=== PATIENT | female | born 1945 | race Caucasian/White ===

== ENCOUNTER 2023-04-25 14:44 | Emergency (ER) | payer MEDICARE, SELFPAY ==
[2023-04-25 15:02] VITALS: BP 142/69; PULSE 73; RESP 18; TEMP 36.1; O2SAT 99
--- NOTE | 2023-04-25 15:05 | ED.SKABFB ---
HPI - Skin/Abscess/Foreign Bdy General Chief complaint: Skin/Abscess/Foreign Body Stated complaint: rash Time Seen by Provider: 04/25/23 15:05 Source: patient Mode of arrival: ambulatory Limitations: no limitations History of Present Illness HPI narrative: 77-year-old female presents with complaint of poison ashleigh rash x1 week. Reports continues to spread. Now is on her chin and left cheek, states hers son told her that she needs to be seen to get a steroid. patient complaining of itching. Is not using any [id number] medications to treat poison ashleigh. All systems reviewed and negative except as noted above. Related Data Home Medications Medication Instructions Recorded Confirmed gabapentin 100 mg capsule 100 mg PO BID 04/25/23 04/25/23 hydrochlorothiazide 25 mg tablet 25 mg PO DAILY 04/25/23 04/25/23 Allergies Allergy/AdvReac Type Severity Reaction Status Date / Time No Known Allergies Allergy Verified 04/25/23 15:05 Review of Systems Review of Systems: CONSTITUTIONAL: Denies fever, chills, or sweats. EYES: Denies visual changes, redness, or discharge. ENT: Denies rhinorrhea, congestion, sore throat, or otalgia. CARDIOVASCULAR: Denies chest pain, palpitations, or edema. RESPIRATORY: Denies cough or dyspnea. GASTROINTESTINAL: Denies abdominal pain, nausea, vomiting, or diarrhea. GENITOURINARY: Denies dysuria or hematuria. SKIN: Reports itchy rash to bilateral arms, right leg, neck, chin and cheek of face. MUSCULOSKELETAL: Denies back pain, joint pain, or myalgia. NEUROLOGIC: Denies headache, numbness, or weakness. PSYCHIATRIC: Denies anxiety or depression. All other systems reviewed are negative, except as documented in HPI. PMFSH Comments At time of signature, agree with nursing past medical, surgical, social and family history. There is no relevant family history pertinent to the presenting complaint. Exam Narrative: GENERAL: This is a well-nourished, well-developed patient, in no apparent distress. HEAD: normocephalic, atraumatic. EYES: PERRL. Sclera clear/white. Vision is grossly intact. EARS: External ears normal NOSE: External nose normal NECK: Neck supple, non-tender without lymphadenopathy, masses or thyromegaly. CARDIOVASCULAR: Regular rate and rhythm without murmurs, gallops, or rubs. RESPIRATORY: Clear to auscultation. Breath sounds equal bilaterally. No wheezes, rales, or rhonchi. SKIN: warm, Dry, intact, good texture and turgor. erythematous vesicular rash to bilateral arms, R leg, neck, chin and L cheek. no signs of infection. NEURO: awake, alert, and oriented to person, place and time. There were no obvious focal neurologic abnormalities. EXTREMITIES: No joint tenderness, effusion, or edema noted. Course Course Level of Care: Express Care Visit Vital Signs Vital signs: Vital Signs Temperature 36.1 C L 04/25/23 15:02 Pulse Rate 73 04/25/23 15:02 Respiratory Rate 18 04/25/23 15:02 Blood Pressure 142/69 H 04/25/23 15:02 Pulse Oximetry 99 04/25/23 15:02 Oxygen Delivery Room Air 04/25/23 15:02 Temperature 36.1 C L 04/25/23 15:02 Pulse Rate 73 04/25/23 15:02 Respiratory Rate 18 04/25/23 15:02 Blood Pressure 142/69 H 04/25/23 15:02 Pulse Oximetry 99 04/25/23 15:02 Oxygen Delivery Room Air 04/25/23 15:02 reviewed MDM - Skin/Abscess/Foreign Bdy MDM Narrative Medical decision making narrative: Patient is aware of diagnosis, understands and agrees to treatment plan. Anticipatory guidance given. Patient agrees to follow-up as directed and is aware of reasons to seek care at the emergency department. Portions of this record may have been created with voice recognition software Discharge Plan Discharge Clinical Impression: Dermatitis due to plants, including poison ashleigh, sumac, and oak Patient Disposition: Home, Self-Care Condition: Stable Instructions: Antibiotic Form, Poison Ashleigh (ED) Additional Instructions
== END 2023-04-25 15:22 | disposition home or self-care (01) ==
PROVIDERS: Emergency Provider Nurse Practitioner Family
DX: L25.5 Unspecified contact dermatitis due to plants, except food (principal); I10 Essential (primary) hypertension
CPT/HCPCS: 99213; G0463

== ENCOUNTER 2025-02-18 10:13 | Emergency (ER) | payer MEDICARE, SELFPAY ==
--- NOTE | 2025-02-18 10:14 | ED.FEMALEGU ---
HPI - Female Genitourinary General Chief complaint: Urogenital-Female Stated complaint: uti Time Seen by Provider: 02/18/25 10:14 Source: patient Mode of arrival: ambulatory Limitations: no limitations History of Present Illness HPI Narrative: Hilary is a 79-year-old female patient presenting to the clinic today with complaints of possible urinary tract infection. She reports yesterday she started having comes of urinary retention, frequency, urgency, and low urine output. Did notice some blood in her urine. Has not taken any azo or cranberry pills. Denies any flank pain or abdominal pain. No fever, nausea, vomiting, or diarrhea. Related Data Home Medications ?Medication ?Instructions ?Recorded ?Confirmed ?Last Taken ?Type hydrochlorothiazide 25 mg tablet 25 mg PO DAILY 04/25/23 02/18/25 Unknown History amlodipine 2.5 mg tablet mg 02/18/25 Unknown History mirtazapine 15 mg tablet mg 02/18/25 Unknown History rosuvastatin 10 mg tablet mg 02/18/25 Unknown History Allergies Allergy/AdvReac Type Severity Reaction Status Date / Time acetaminophen (From AdvReac Mild Itching Verified 02/18/25 10:30 Tylenol-Codeine #3) codeine (From AdvReac Mild Itching Verified 02/18/25 10:30 Tylenol-Codeine #3) Review of Systems Review of Systems: Pertinent positives per HPI. Patient denies any fever, chills, rash, headache, visual changes, dizziness, cough, shortness of breath, chest pain, palpitations, nausea, vomiting, diarrhea, constipation, abdominal pain, or any urinary issues. PMFSH Comments At the time of my signature, I reviewed and agree with the nursing past medical, surgical, social, and family history. There is no relevant family history pertinent to the patient complaint. Exam Narrative: General: Well-developed, well nourished, in no apparent distress. Head: Normocephalic, atraumatic. Cardio: Regular rate and rhythm, s1 and s2 normal, no murmur appreciated. Resp: Clear to auscultation bilaterally, no rhonchi, rales, wheezing or rubs. Abdomen: Soft, pliable, bowel sounds present in all quadrants, suprapubic tender to palpation, no organomegly, no CVAT tenderness. Course Course Emergency Course: Portions of this record may have been created with voice recognition software. Level of Care: Express Care Visit Vital Signs Vital signs: Vital Signs Temperature 36.5 C 02/18/25 10:21 Pulse Rate 68 02/18/25 10:21 Respiratory Rate 16 02/18/25 10:21 Blood Pressure 142/59 H 02/18/25 10:21 Pulse Oximetry 100 02/18/25 10:21 Temperature 36.5 C 02/18/25 10:21 Pulse Rate 68 02/18/25 10:21 Respiratory Rate 16 02/18/25 10:21 Blood Pressure 142/59 H 02/18/25 10:21 Pulse Oximetry 100 02/18/25 10:21 Vital signs reviewed MDM - Female Genitourinary MDM Narrative Medical decision making narrative: At the time of visit patient is resting comfortably on the exam table. Patient appears to be nontoxic. Labs: Urinalysis positive for blood, protein, leukocytes, and bilirubin. We will send urine for culture. Plan: I suspect patient has acute urinary tract infection. Prescription for cephalexin was sent to the pharmacy. Supportive measures were discussed with the patient and they voiced understanding discharge instructions and agrees to treatment plan. Return precautions reviewed Differential Diagnosis Differential diagnosis: Likely urinary tract infection, cystitis and other (Pyelonephritis) Lab Data Labs: Lab Results 02/18/25 Range/Units 10:26 POC Urine Color Red POC Urine Clarity Cloudy POC Urine pH 6.0 POC Ur Specif [place] 1.025 POC Urine Protein 3+ (Negative) POC Ur Glucose (UA) Negative (Negative) POC Urine Ketones Trace (Negative) POC Urine Blood 3+ (Negative) POC Urine Nitrite Negative (Negative) POC Urine Bilirubin 1+ (Negative) POC Urine Urobilinogen 1.0 POC U Leukocyte Esteras 3+ (Negative) Discharge Plan Discharge Clinical Impression: Urinary tract infection Qualifiers: Urinary tract infection type: acute cystitis Hematuria presence: with hematuria Qualified Code(s): N30.01 - Acute cystitis with hematuria Patient Disposition: Home Condition: Stable Instructions: Antibiotic Form, Urinary Tract Infection in Older Adults (ED) Additional Instructions: Urinalysis positive for blood, protein, leukocytes, and bilirubin. We will send urine for culture. Take Keflex as prescribed Increase fluids and stay well hydrated Wipe front to back. May use wet wipes. Avoid tub baths If sexually active- pee before and after intercourse. Wear cotton panties Avoid tight clothing up against the genitals Follow up with your PCP in 1 week if symptoms persist. Patient Language: Vietnamese Prescriptions: New cephalexin 500 mg capsule 500 mg PO Q12H 7 Days Qty: 14 0RF No Action amlodipine 2.5 mg tablet mirtazapine 15 mg tablet rosuvastatin 10 mg tablet hydrochlorothiazide 25 mg tablet 25 mg PO DAILY Follow-up/Referrals: UNKNOWN,DOCTOR [Non-Staff] - Time of Disposition: 10:30 Quality NIHSS Nursing Documentation ED NIHSS nursing documentation: reviewed/agree
[2025-02-18 10:21] VITALS: BP 142/59; PULSE 68; RESP 16; TEMP 36.5; O2SAT 100
[2025-02-18 10:30] LABS: EDUAAPPEAR Cloudy; EDUABILI 1+ (Negative); EDUABLOOD 3+ (Negative); EDUACOLOR1 Red; EDUAGLUCOSE Negative (Negative); EDUAKETONE Trace (Negative); EDUALEUKO 3+ (Negative); EDUANITRATE Negative (Negative); EDUAPROTEIN 3+ (Negative); EDUASPGRAVITY 1.025
--- OUTSIDE RECORDS SUMMARY | 2025-02-18 11:25 | XMS_ITS | Referral Summary ---
Author Organization [facility] Address [address] [place] [address] Care Team Providers Care Strategic Planning Analyst Name Role Phone Kalie Eason Lena Primary Care Provider [phone] Source Comments This patient is being referred for medical care/services via this automatically generate document. This document will provide information important for the transfer of patient care & comply with [facility] Meaningful Use Transitions of Care requirements.[facility] Allergies Active Allergy Reactions Criticality Noted Date Comments Acetaminophen-Codeine Itching,Rash Low 11/07/2021 Medications hydrochlorothiazide (HYDRODIURIL) 25 MG PO tablet take 1 tablet (25 mg total) by mouth in the morning. Active Calcium Carbonate (CALCIUM 600 PO) take by mouth DAILY. Active gabapentin (NEURONTIN) 100 MG Oral capsuleIndications: Bilateral primary osteoarthritis of knee,Status post right knee replacement take 1 capsule (100 mg total) by mouth in the morning and 1 capsule (100 mg total) at noon and 1 capsule (100 mg total) before bedtime. 90 capsule 1 2 Active amlodipine (NORVASC) 2.5 MG Oral tablet TAKE 1 TABLET BY MOUTH ONCE A DAY FOR BLOOD PRESSURE 2 Active meloxicam (MOBIC) 7.5 MG Oral tablet TAKE ONE (1) TABLET(S) BY MOUTH DAILY. 2 Active zolpidem (AMBIEN) 5 MG Oral tablet TAKE ONE (1) TABLET BY MOUTH AT BEDTIME NEEDED FOR INSOMNIA. 2 Active gabapentin (NEURONTIN) 100 MG Oral capsuleIndications: Status post left knee replacement,Status post total knee replacement, right take 1 capsule (100 mg total) by mouth in the morning and 1 capsule (100 mg total) at noon and 1 capsule (100 mg total) before bedtime. 90 capsule 3 3 Active gabapentin (NEURONTIN) 100 MG Oral capsuleIndications: Status post total knee replacement, right take 1 capsule (100 mg total) by mouth in the morning and 1 capsule (100 mg total) before bedtime. 90 capsule 1 3 Active gabapentin (NEURONTIN) 100 MG Oral capsuleIndications: Status post left knee replacement take 1 capsule (100 mg total) by mouth in the morning and 1 capsule (100 mg total) at noon and 1 capsule (100 mg total) before bedtime. 90 capsule 3 4 Active gabapentin (NEURONTIN) 100 MG Oral capsuleIndications: Status post left knee replacement take 1 capsule (100 mg total) by mouth in the morning and 1 capsule (100 mg total) at noon and 1 capsule (100 mg total) before bedtime. 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 Hoarse 01/19/2013 01/19/2013 Social History Tobacco Use Types Packs/Day Years Used Date Smoking Tobacco: Never Smokeless Tobacco: Never Tobacco Cessation:Counseling Given: Not Answered Alcohol Use Standard Drinks/Week Comments Yes 0 (1 standard drink = 0.6 oz pure alcohol) seldom maybe a drink every 3 months Comments Unknown Sex and Gender Information Value Date Recorded Sex Assigned at Female 11/04/2021 6:28 PM SHANK PIECE TACKER Legal Sex Female 10:56 AM CDT Gender Identity Female 11/04/2021 6:28 PM SHANK PIECE TACKER Sexual Orientation Straight 11/04/2021 6: 28 PM SHANK PIECE TACKER Last Filed Vital Signs Vital Sign Reading Time Taken Comments Blood Pressure 190/74 01/19/2014 12:42 PM CDT Pulse 54 01/19/2014 12:42 PM CDT Temperature - - Respiratory Rate 18 11/26/2023 8:24 AM SHANK PIECE TACKER Oxygen Saturation - - Inhaled Oxygen Concentration - - Weight 72.1 kg (159 lb) 11/26/2023 8:24 AM SHANK PIECE TACKER Height 147.3 cm (4' 10 ) 11/26/2023 8:24 AM SHANK PIECE TACKER Body Mass Index 33.23 11/26/2023 8:24 AM SHANK PIECE TACKER Plan of Treatment Not on file Care Teams Strategic Planning Analyst Relationship Specialty Start Date End Date Kalie Eason [address] [place] [address] PCP - General Family Medicine 06/21/22
--- OUTSIDE RECORDS SUMMARY | 2025-02-18 11:25 | XMS_ITS | Encounter Summary ---
Author Organization [facility] Address [address] [place] [address] Care Team Providers Care Assisted Living Administrator Name Role Phone N/A, Pcp Primary Care Provider Kalie Jeong Primary Care Provider [phone] Encounter Details Date Type Department Care Team (Late st Contact Info) Description 12/03/2020 Orders Only [facility], Family Medicine [address], [id number] [place], [place] [id number] Malka Valencia MD [address] [facility] [address] [place], [place] [id number] Need for COVID-19 vaccine Social History Tobacco Use Types Packs/Day Years Used Date Smoking Tobacco: Never Alcohol Use Standard Drinks/Week Comments Yes 0 (1 standard drink = 0.6 oz pur e alcohol) Comments Unknown Sex and Gender Information Value Date Recorded Sex Assigned at Female 11/04/2021 6:28 PM RAMP MANAGER Legal Sex Female 10:56 AM CDT Gender Identity Female 11/04/2021 6:28 PM RAMP MANAGER Sexual Orientation Straight 11/04/2021 6: 28 PM RAMP MANAGER documented as of this encounter Plan of Treatment Not on file documented as of this encounter Visit Diagnoses Diagnosis Need for COVID-19 vaccine documented in this encounter Care Teams Assisted Living Administrator Relationship Specialty Start Date End Date N/A, Pcp PCP - General Internal Medicine 01/15/13 06/20/22 Kalie Eason [address] [place] [address] PCP - General Family Medicine 06/21/22 documented as of this encounter
--- OUTSIDE RECORDS SUMMARY | 2025-02-18 11:25 | XMS_ITS | Clinical Summary ---
Author Organization [facility] and [facility]iliates Address [address] [place] [address] Care Team Providers Care Bacon Skin Lifter Name Role Phone Kalie Eason Lena Primary Care Provider [phone] Source Comments This patient is being referred for medical care/services via this automatically generate document. 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 Hoarse 01/19/2013 01/19/2013 Family History Medical History Relation Name Comments Cancer Brother 1 Tommy Cancer Brother 2 Daniel Paige skin cancer Cancer Mother Amisha Paige skin cancer Hypertension Mother Amisha Paige high blood pr essure Cancer Sister 1 Elton Cancer Sister 2 elton Rhoda ovarian cancer Relation Name Status Comments Brother 1 Tommy Brother 2 Daniel Paige Mother Amisha Paige Sister 1 Elton Sister 2 elton Rhoda Social History Tobacco Use Types Packs/Day Years Used Date Smoking Tobacco: Never Smokeless Tobacco: Never Tobacco Cessation:Counseling Given: Not Answered Alcohol Use Standard Drinks/Week Comments Yes 0 (1 standard drink = 0.6 oz pure alcohol) seldom maybe a drink every 3 months Comments Unknown Sex and Gender Information Value Date Recorded Sex Assigned at Female 11/04/2021 6:28 PM SALES PROJECT MANAGER Legal Sex Female 10:56 AM CDT Gender Identity Female 11/04/2021 6:28 PM SALES PROJECT MANAGER Sexual Orientation Straight 11/04/2021 6: 28 PM SALES PROJECT MANAGER Last Filed Vital Signs Vital Sign Reading Time Taken Comments Blood Pressure 190/74 01/19/2014 12:42 PM CDT Pulse 54 01/19/2014 12:42 PM CDT Temperature - - Respiratory Rate 18 11/26/2023 8:24 AM SALES PROJECT MANAGER Oxygen Saturation - - Inhaled Oxygen Concentration - - Weight 72.1 kg (159 lb) 11/26/2023 8:24 AM SALES PROJECT MANAGER Height 147.3 cm (4' 10 ) 11/26/2023 8:24 AM SALES PROJECT MANAGER Body Mass Index 33.23 11/26/2023 8:24 AM SALES PROJECT MANAGER Plan of Treatment Health Maintenance Due Date Last Done Comments DXA For Osteoporosis Screening 1945 Varicella Vaccine (1 of 2 - 13+ 2-dose series) 1958 DTaP/Td/Tdap Vaccine (1 - Tdap) 1964 Respiratory Syncytial Virus (RSV) patients and patients 60+Years (1 - 1-dose 75+ series) 2020 Fall Risk Screening 10/28/2024 Zoster Vaccine Completed 12/26/2020, 10/03/2020 Pneumococcal Vaccine Completed 04/02/2023, 07/18/2017, 11/19/2012 Breast Cancer Screening (Mammogram) Discontinued 09/16/2023 COVID-19 Vaccine Completed 08/25/2024, , 07/31/2023, Additional history exists INFLUENZA VACCINE Completed 08/25/2024, , 07/31/2023, Additional history exists Meningococcal ACWY Aged Out No longer eligible based on patient's age to complete this topic Meningococcal B Aged Out No longer el igible based on patient's age to complete this topic Care Teams Bacon Skin Lifter Relationship Specialty Start Date End Date Kalie Eason [address] [place] [address] PCP - General Family Medicine 06/21/22
--- OUTSIDE RECORDS SUMMARY | 2025-02-18 11:25 | XMS_ITS | Encounter Summary ---
Author Organization [facility] Address [address] [facility] [place] [address] Care Team Providers Care Production Repairer Name Role Phone N/A, Pcp Primary Care Provider Kalie Jeong Primary Care Provider Encounter Details Date Type Department Care Team (Late st Contact Info) Description 12/29/2021 Orders Only [facility], Orthopaedics [address] [place] [address] Carola Sheehan, PRESS SERVICE READER [address] [place], [place] [phone] Status post total knee replacement, right (Primary Dx) Social History Tobacco Use Types Packs/Day Years Used Date Smoking Tobacco: Never Alcohol Use Standard Drinks/Week Comments Yes 0 (1 standard drink = 0.6 oz pure alcohol) seldom maybe a drink every 3 months Comments Unknown Sex and Gender Information Value Date Recorded Sex Assigned at Female 11/04/2021 6:28 PM BLACK OXIDE COATING EQUIPMENT TENDER Legal Sex Female 10:56 AM CDT Gender Identity Female 11/04/2021 6:28 PM BLACK OXIDE COATING EQUIPMENT TENDER Sexual Orientation Straight 11/04/2021 6: 28 PM BLACK OXIDE COATING EQUIPMENT TENDER documented as of this encounter Plan of Treatment Not on file documented as of this encounter Visit Diagnoses Diagnosis Status post total knee replacement, right- Primary documented in this encounter Care Teams Production Repairer Relationship Specialty Start Date End Date N/A, Pcp PCP - General Internal Medicine 01/15/13 06/20/22 Kalie Eason [address] [place] [address] PCP - General Family Medicine 06/21/22 documented as of this encounter
--- OUTSIDE RECORDS SUMMARY | 2025-02-18 11:25 | XMS_ITS | Encounter Summary ---
Author Organization [facility] and [facility] Address [address] [place] [address] Care Team Providers Care Loader Unloader Name Role Phone N/A, Pcp Primary Care Provider Kalie Jeong Primary Care Provider Encounter Details Date Type Department Care Team (Late st Contact Info) Description 02/07/[address] [facility], Orthopaedics [address] [place] [address] Carola Sheehan, CLINICAL LABORATORY SCIENCE PROFESSOR [address] [place], [place] [phone] Pre-op testing (Primary Dx) Social History Tobacco Use Types Packs/Day Years Used Date Smoking Tobacco: Never Smokeless Tobacco: Never Alcohol Use Standard Drinks/Week Comments Yes 0 (1 standard drink = 0.6 oz pure alcohol) seldom maybe a drink every 3 months Comments Unknown Sex and Gender Information Value Date Recorded Sex Assigned at Female 11/04/2021 6:28 PM SOLE POLISHER Legal Sex Female 10:56 AM CDT Gender Identity Female 11/04/2021 6:28 PM SOLE POLISHER Sexual Orientation Straight 11/04/2021 6: 28 PM SOLE POLISHER documented as of this encounter Plan of Treatment Not on file documented as of this encounter Procedures Procedure Name Priority Date/Time Associated Diagnosis Comments URINALYSIS, MICROSCOPIC EXAM Routine 02/07/2022 4:48 PM CDT Pre-op testing CHG URNLS DIP STICK/TABLET REAGENT AUTO MICROSCOPY Routine 02/07/2022 4:48 PM CDT Pre-op testing documented in this encounter Results * URINALYSIS, MICROSCOPIC EXAM (02/07/2022 4:48 PM CDT) RBC 3-5 0-5/hpf [facility] WBC None 0-5/hpf [facility] SQUAMOUS EPITHELIAL CELLS 1-5 <6/hpf [facility] Bacteria Rare None [facility] COMMENT [facility] Urine / Unknown 02/07/2022 4 :48 PM CDT 02/07/2022 5:46 PM CDT [facility] URINE ORDERABLES Final Result Performing Organization Address City/[facility] Co de Phone Number [facility] [address] [place] [address] * (ABNORMAL) URINALYSIS, COMPLETE W/REFLEX TO CULTURE (02/07/2022 4:48 PM CDT) COLOR Yellow Straw, Yellow [facility] CLARITY Clear Clear [facility] GLUCOSE URINE Negative Negative [facility] BILIRUBIN Negative Negative [facility] KETONES, URINE Negative Negative [facility] SPECIFIC GRAVITY 1.020 1.005 - 1.030 [facility] PH, URINE 7.0 5.0 - 8.0 [facility] PROTEIN, URINE Negative Negative [facility] UROBILINOGEN, URINE 0.2 0.2 - 1.0 E.U./dL [facility] NITRITE Negative Negative [facility] OCCULT BLOOD, URINE Trace-intact (A) Negative [facility] LEUKOCYTE ESTERASE Negative Negative [facility] Urine / Unknown 02/07/2022 4:48 PM CDT 02/07/2022 5:46 PM CDT [facility] PERFORMED LABS Fi nal Result [facility] [address] [place] [address] documented in this encounter Visit Diagnoses Diagnosis Pre-op testing- Primary Preoperative examination, unspecified documented in this encounter Care Teams Loader Unloader Relationship Specialty Start Date End Date N/A, Pcp PCP - General Internal Medicine 01/15/13 06/20/22 Kalie Eason [address] [place], [place] [phone] PCP - General Family Medicine 06/21/22 documented as of this encounter
--- OUTSIDE RECORDS SUMMARY | 2025-02-18 11:25 | XMS_ITS | Continuity of Care Document ---
Author Organization [facility] Address [address] [place] [address] Phone Care Team Providers Care Shotblast Operator Name Role Phone Bernadette Rodarte Unavailable Unavailab le Allergies, Adverse Reactions, Alerts Substance Reaction Status Criticality No Known Allergies Active No Inform ation Procedures Procedure Date OFFICE/OUTPATIENT VISIT, EST Biopsy, Tangential Single Lesion 2022 DESTRUCT PREMALG LESION DESTRUCT PREMALG LES, 2-14 OFFICE/OUTPATIENT VISIT, EST No Charge EXC TR-EXT B9+CAMRYN 0.6-1 CM OFFICE CONSULTATION TISSUE EXAM BY PATHOLOGIST Advance Directives Directive Yes / No Effective Date File Name No Information Encounters Encounter Description Practice Location Reason(s) For Visit Diagnoses Date Provider Providers Copied on Encounter Dermatology [facility], [address] [place] [address], [place], [place], [id number], [place] tel: [phone] [facility] Location Ot benign neoplasm skin/ left upper limb, inc shoulder 3 Delio Fleming. [address] , [place], [place], [id number] , [place]. tel: [phone] OFFICE/OUTPAT IENT VISIT, EST Dermatology [facility], [address] [place] [address], [place], [place], [id number], [place] tel: [phone] [facility] Location lesion(s) (chief complaint) Encounter for screening for cancer of skinInflamed seborrheic keratosisLentigoM elanocytic nevi of trunkActinic keratosisNeoplasm of uncertain behavior of skin 3 Dudley- Cruz Bernadette. [address] [facility], [place], [place], [id number] , [place]. tel: [phone] OFFICE/OUTPAT IENT VISIT, EST Dermatology [facility], [address] [place] [address], [place], [place], [id number], [place] tel:[phone] [facility] lesion(s) (chief complaint) Other dyschromiaBenign neoplasm of skin of trunk, except scrotumInflamed seborrheic keratosisBenign neoplasm of skin of upper limb, including shoulder 2 Dudley- Cruz Bernadette. [address] [facility], [place], [place], [id number] , [place]. tel: [phone] Dermatology [facility], [address] [place] [address], [place], [place], [id number], [place] tel: [address] [place] [address] No Information 0 Dudley- Cruz Bernadette. [address] [facility], [place], [place], [id number] , [place]. tel: [phone] OFFICE CONSULTATION [facility], [address] [place] [address], [id number], [place] tel:[phone] [place] [address] No Information 0 Dudley- Cruz Bernadette. [address] [facility], [place], [place], [id number] , [place]. tel: [phone] Referring Provider: Nichole Suggs, [address], [place], [address] . tel:[phone] Dermatology [facility], [address] [place] [address], [place], [place], [id number], [place] tel:[phone] [place] [address] No Information 0 Hari Lai. [address] [place], [place], [id number] , [place]. tel: [phone] Referring Provider: Bernadette Paredes, [address] , [place], [address] . tel:[phone] Family History Family Member Type Diagnosis Age At Onset Mother Problem (finding) Cancer, skin Brother Problem (finding) Cancer, skin Problem (finding) Payers Payer name Insurance type Covered republican ID Authoriza tion(s) No Information Social History Type Description Quantity Date Captured Comments Sex Female Smoking Status No Information Chief Complaint And Reason For Visit No Information Reason For Referral Reason For Referral No Information Plan Of Treatment Date Type Action Status Patient Education Skin Cancer Prevention: Care Instruct~ completed Future Order: Lab Order Dermatol ogy Histology (DermHist), Collected on: Ordered History Of Present Illness Encounter Date Complaint History Of Prese nt Illness lesion(s) The problem is m oderate and has not changed. The patient reports no prior history of skin cancer. The patient reports no blistering, change in color of mole(s), change in size and shape of the mole(s), erythema, fatigue, pruritus, lesion discharge, lymphadenopathy, non-healing sores, painful lesions, pigment change, recurrent bleeding lesions, scaly skin or skin irritation. Functional Status Date Functional Assessmen t No Information Instructions Date Instruction Additional Infor miryam Discussed risks/bene fits/side effects of treatment Related to Encounter for screening for cancer of skin Avoid strenuous activity Related to Encounter for screening for cancer of skin Avoid sun exposure Related to En counter for screening for cancer of skin Avoid tanning Related to Encou nter for screening for cancer of skin Use sunscreen with > 30 SPF Rela eleazar to Encounter for screening for cancer of skin ABCDE's Related to Encou nter for screening for cancer of skin Discussed risks/bene fits/side effects of treatment Related to Inflamed seborrheic keratosis Discussed treatment options of Cryotherapy Related to Inflamed seborrheic keratosis No significant findi ngs upon exam, patient was reassured Related to Inflamed seborrheic keratosis Patient/guardian und erstood and made an informed decision regarding treatment Related to Inflamed seborrheic keratosis skin exam Related to Infla med seborrheic keratosis Discussed risks/bene fits/side effects of treatment Related to Lentigo Discussed risks/bene fits/side effects of treatment Related to Actinic keratosis Discussed treatment options of Cryotherapy Related to Actinic keratosis Patient/guardian und erstood and made an informed decision regarding treatment Related to Actinic keratosis skin exam Related to Actin ic keratosis Discussed risks/bene fits/side effects of treatment Related to Neoplasm of uncertain behavior of skin skin biopsy Related to Neopl asm of uncertain behavior of skin No significant findi ngs upon exam, patient was reassured Related to Lentigo skin exam Related to Lenti go Discussed risks/bene fits/side effects of treatment Related to Melanocytic nevi of trunk No significant findi ngs upon exam, patient was reassured Related to Melanocytic nevi of trunk Avoid tanning Related to Melan ocytic nevi of trunk Use sunscreen with > 30 SPF Rela eleazar to Melanocytic nevi of trunk ABCDE's Related to Melan ocytic nevi of trunk moles Related to Melan ocytic nevi of trunk Assessments Type Assessment Date No Information Patient Care Teams Name Effective Dates (start - stop) Status Members No Information
--- OUTSIDE RECORDS SUMMARY | 2025-02-18 11:26 | XMS_ITS | Data Portability ---
Author Organization [place] [facility], [facility] Address [address] [place] [address] Assessment Encounter Date Assessment Date Assessment LastModified by Organization Details LastModified Time 07/09/2018 07/09/2018 Pt able to complete R knee flx to 117 p HS/manual and L knee flx to 109 p HS/manual. Pt presents c improved B knee extension p completion of C/R and AP mobs. Increased TTP at L vastus lateralis that decreased c completion of IASTM. Pt to complete prone quad stretch for improved hip flexor length and knee flx/ext ROM. [email or web address] Not available 07/09/2018 14:39:28 07/16/2018 07/16/2018 Pt able to complete L knee flx to 108 and R knee flx to 118 p HS. Pt demos improved B knee extension c ability to complete L knee extension to 2 and R to 3. Pt completed prone quad stretch today. Pt will be progressed c step down next visit for eccentric quad strength for descending stairs. Pt continues to require improved AROM hip extension and glut max strength gains. [email or web address] Not available 07/16/2018 14:22:32 07/25/2018 07/25/2018 Pt is a 72 y/o female presenting c signs/symptoms of B knee OA. SILVIO is degenerative changes. Pt presents c good improvement in B knee ROM, hip flexor length and wbing toleration. Pt issued and educated on HEP. Pt is being d/c'd from therapy services and will continue c HEP. ST Goals: Indep c HEP-MET Inc B knee flx to 120 for donning/doffing shoes s modification-IP Inc B knee extension by 2 deg or > from current 7 deg for improved gait pattern-MET Pt to ascend/descend 1 FOS reciprocally s inc in pain-MET Previous LEFS- 54% Current LEFS-70% [email or web address] Not available 07/25/2018 16:19:31 Plan of Treatment Reminders Order Date Submit Date Provider Last Modified By Organization Details Last Modified Time Details Appointments None record ed. Lab None record ed. Referral None record ed. Procedures None record ed. Surgeries None record ed. Imaging None record ed. Medication Orders None record ed. Patient TargetsNo targets recorded. Patient Instructions Encounter Date Encounter Id Patient Instructions Last Modified By Organization Details Last Modified Time 09/15/2018 [id number] we will continue with conservative treatment. Follow up in 2 months time to see she is progressing. [email or web address] Not available 09/15/2018 14:32:10 11/10/2018 [id number] She is planning to get stem cell injections. If she fails Injections She Would Be an Appropriate Candidate for Knee Replacement As She Has End-Stage Primary Arthritis with Cwjz-Qo-Quwl Joint Space Narrowing. [email or web address] Not available 11/10/2018 14:20:27 Reason for Referral None Reported. Problems No Known Problems Procedures Surgical History Date Name Laterality Status Provider Name and Address Organization Details Recorded Time 09/15/20 18 CWN - Steroid Injection completed Cesar Bonilla MD [address], [place], [address], [facility] 09/15/2018 14:31:33 07/25/20 18 [id number]: Therapeutic Exercise completed Katrin Bippert, PT [address], [place], [address], [facility] 07/25/2018 16:18:05 07/25/20 18 05030: Manual Therapy completed Katrin Bippert, PT [address], [place], [address], [facility] 07/25/2018 16:17:57 07/16/20 18 [id number]: Therapeutic Exercise completed Katrin Bippert, PT [address], [place], [address], [facility] 07/16/2018 14:20:40 07/16/20 18 30906: Manual Therapy completed Katrin Bippert, PT [address], [place], [address], [facility] 07/16/2018 14:20:06 07/09/20 18 35095: Therapeutic Exercise completed Katrin Polancopert, PT [address], [place], [address], [facility] 07/09/2018 14:39:42 07/09/20 18 66944: Manual Therapy completed Katrin Collinpert, PT [address], [place], [address], [facility] 07/09/2018 14:37:20 07/07/20 18 11045: Therapeutic Exercise completed Katrin Vieyra, PT [address], [place], [address], [facility] 07/07/2018 14:58:04 07/07/20 18 74452: Manual Therapy completed Katrin Polancopert, PT [address], [place], [address], [facility] 07/07/2018 16:02:00 07/03/20 18 45498: Therapeutic Exercise completed Katrin Vieyra, PT [address], [place], [address], [facility] 07/03/2018 13:54:37 07/03/20 18 57710: Manual Therapy completed Katrin Polancopert, PT [address], [place], [address], [facility] 07/03/2018 13:54:28 06/09/20 18 [id number]: Therapeutic Exercise completed Katrin Polnacopert, PT [address], [place], [address], [facility] 06/09/2018 10:47:05 06/09/20 18 75849: Manual Therapy completed Katrin Vieyra, PT [address], [place], [address], [facility] 06/09/2018 10:46:46 06/05/20 18 [id number] PT Eval - Moderate completed Katrin Vieyra, PT [address], [place], [address], [facility] 06/05/2018 19:21:05 06/02/20 18 Xray, Knee, Daryn, 4+V completed Cesar Bonilla MD [address], [place], [address], [facility] 06/02/2018 14:39:32 06/02/20 18 CWN - Steroid Injection completed Cesar Bonilla MD [address], [place], [address], [facility] 06/02/2018 14:39:58 10/28/19 13 ENT completed Africa Corley [facility] 06/02/2018 15:11:15 10/28/19 10 Hysterectomy completed Africa Corley [facility] 06/02/2018 15:11:06 Imaging Results None recorded. Procedure Notes None recorded. Medical Equipment None Reported. Allergies No known drug allergies Medications Name Sig Start Date Stop Date Status Note LastModified by Organization Details LastModified Time meloxicam 7.5 mg tablet active Not Available Not Available No t Available hydrochlorothia zide 25 mg tablet TAKE ONE (1) TABLET(S ) BY MOUTH EVERY DAY IN THE MORNING. active Not Available Not Available No t Available zolpidem 10 mg tablet TAKE ONE (1) TABLET(S ) BY MOUTH AT BEDTIME NEEDED. active Not Available Not Available No t Available Vitals Date Recorded Body height Body mass index (BMI) Body weight Provider Name and Address Organization Details Last Updated DateTime 09/15/2018 147.32 cm 33.4 kg/m2 10430.78 g Ada Mercado [facility] 09/15/2018 14:00:56 Date Recorded Heart rate Systolic blood pressure Diastolic blood pressure Provider Name and Address Organization Details Last Updated DateTime 09/15/2018 71 /min 147 mm[Hg] 87 mm[Hg] Africa Corley [facility] 09/15/2018 14:09:55 Date Recorded Body height Body mass index (BMI) Body weight Heart rate Systolic blood pressure Diastolic blood pressure Provider Name and Address Organization Details Last Updated DateTime 9 147.32 cm 33.4 kg/m2 47606.7 8 g 70 /min 145 mm[Hg] 98 mm[Hg] Shanique Bear [facility] 9 13:57:06 Social History Question Answer Notes LastModified by Organizat ion Details LastModified Time Tobacco Smoking Status Former Smoker Africa Corley fitz, [facility] 06/02/2018 15:10:46 Do You Drink Alcohol? Never Or Rare Information not available 06/02/2018 Drug Use Never Information n ot available 06/02/2018 Number Of Children 1 Information not available 06/02/2018 Marital Status Informati on not available 06/02/2018 What Was The Date Of Your Most Recent Tobacco Screening? 11/10/2018 Information n ot available 05/22/2019 How Many Years Have You Smoked Tobacco? 2 Information not available 06/02/2018 Sex: Unknown Functional Status None recorded. Mental Status None recorded. Family History Relationship Description Onset Age of this Age Resolved Age Notes LastModified by Organization Details LastModified Time Father No current problems or disability Not available 03/2018 15:10:39 Mother No current problems or disability Not available 03/2018 15:10:39 Medical History Condition Response Pancreatitis N HIV or AIDS N Gout N Thyroid Disease N Atrial Fibrillation N Prostate Disease N Stroke CVA N Alzheimer's or Significant Memory Loss N Irregular Heartbeat N Emphysema/COPD N Cubital tunnel release N Depression N Pneumonia N Pacemaker/Defibrillator N Coronary Heart Disease N High Blood Pressure/Hypertension N Congestive Heart Failure N Under the Care of a Yeast Supervisor N Cystic Fibrosis N Cancer Y Hypoglycemia N Stroke N Rotator cuff injury N Bleeding Ulcers N Polio N High Cholesterol N Muscular Dystrophy N Hemophilia/Bleeding Disorder N Rheumatoid Arthritis N Fibromyalgia N Liver Failure N Kidney Disease N Hiatal Hernia N HIV N Osteoarthritis N Acid Reflux N Adverse Reaction to Anesthesia N Colitis N Downs Syndrome N Chemotherapy N MRSA Infection N Esophageal Varices N Blood Clots (phlebitis) N Anemia N Psychiatric Disorder N Home Oxygen N Carpal tunnel release N Ulcers N Bladder Problems N Stomach Ulcers N Diabetes N NO PAST MEDICAL PROBLEMS N Seizures/Epilepsy N Sickle Cell N Have you been or are you being seen by a zig zag spring machine operator? N Angina/Chest Pain/Heart Attack N Heart Attack N Asthma N Dental Disease N Epilepsy/Seizures N Jaundice N Sleep Apnea N Mitral Valve Prolapse N Hepatitis N Cirrhosis N Have you ever had an adverse reaction to anesthesia? N Heart Disease N Bronchitis N Gallbladder Problems N Osteoporosis N Gynecological HistoryNo gynecological history recorded. Obstetrics History GPAL:G 0 P 0 0 0 0 Past Encounters Encounter ID Performer Location Encounter Start Date Encounter Closed Date Diagnosis/Indication Diagnosis SNOMED-CT Code Diagnosis ICD10 Code Diagnosis Note [id number] Cesar Bonilla MD [facility] [address] [place] [address], [address] [address] 06/02/2018 13:55:19 06/02/2018 15:09:25 Osteoarthritis of knee 028325310 M17.0 [id number] Katrin Vieyra, PT [facility] [address] [place] [address], [address] [address] 06/05/2018 14:28:22 06/06/2018 08:31:47 Knee pain 65531188 M25.569 Osteoarthr itis of knee 016331542 M17.0 [id number] Katrin Vieyra, PT [facility] [address] [place] [address], [address] [address] 06/09/2018 09:53:14 06/09/2018 11:06:03 Knee pain 38077249 M25.569 Osteoarthr itis of knee 718281981 M17.0 [id number] Katrin Vieyra, PT [facility] [address] [place] [address], [address] [address] 07/03/2018 12:38:34 07/03/2018 14:30:51 Knee pain 02696241 M25.569 Osteoarthr itis of knee 673946223 M17.0 [id number] Katrin Vieyra, PT [facility] [address] [place] [address], [address] [address] 07/07/2018 14:42:42 07/07/2018 16:19:20 Knee pain 81689739 M25.569 Osteoarthr itis of knee 168140208 M17.0 [id number] Cesar Bonilla MD [facility] [address] [facility], [address] [place] [address] 07/07/2018 15:59:12 07/07/2018 16:20:56 Osteoarthritis of knee 868690295 M17.0 [id number] Katrin Vieyra, PT [facility] [address] [place] [address], [address] [place] [address] 07/09/2018 12:45:41 07/09/2018 16:15:03 Knee pain 10427399 M25.569 Osteoarthr itis of knee 715157960 M17.0 [id number] Katrin Vieyra, PT [facility] [address] [place] [address], [address] [address] 07/16/2018 12:40:40 07/16/2018 14:35:57 Knee pain 54104677 M25.569 Osteoarthr itis of knee 068236095 M17.0 [id number] Katrin Vieyra, PT [facility] [address] [place] [address], [address] [place] [address] 07/25/2018 14:37:53 07/25/2018 16:27:00 Knee pain 91427582 M25.569 Osteoarthr itis of knee 151953983 M17.0 [id number] Cesar Bonilla MD [facility] [address] [place] [address], [address] [place] [address] 09/15/2018 13:52:17 09/15/2018 14:32:58 Osteoarthritis of knee 587888433 M17.0 [id number] Cesar Bonilla MD [facility] [address] [place] [address], [address] [address] 11/10/2018 13:47:13 11/10/2018 14:11:49 Osteoarthritis of knee 301291639 M17.0 Health Concerns Section Related Observation LastModified by Organization Detai ls LastModified Time None Recorded Concern Status LastModified by Organization Details LastModified Time None Recorded Advance Directives Directive None Recorded Payers Encounter Date Sequence Insurance Name Policy Number Policy David Covered Member ID David Member ID Guarantor Name 07/09/2018 1 [employer] (MEDICARE REPLACEMENT/A DVANTAGE - PPO) Fela Nuñezk [id number] Fela Bohnak 07/16/2018 1 [employer] (MEDICARE REPLACEMENT/A DVANTAGE - PPO) Fela De La Cruz Bohnak [id number] Fela Bohnak 07/25/2018 1 [employer] (MEDICARE REPLACEMENT/A DVANTAGE - PPO) Fela De La Cruz Bohnak [id number] Fela Bohnak 09/15/2018 1 [employer] (MEDICARE REPLACEMENT/A DVANTAGE - PPO) Fela De La Cruz Bohnak [id number] Fela Bohnak 11/10/2018 1 [employer] (MEDICARE REPLACEMENT/A DVANTAGE - PPO) Fela De La Cruz Bohnak [id number] Fela Bohnak Notes Date Note Type Note Provider Name and Address Organization Details Recorded Time 07/09/2018 text/html Pt reports that her knees have been feeling tight and more tired possibly from the weather. Katrin Vieyra, PT [address], [place], [address], [facility] 07/09/2018 14:39:56 07/16/2018 text/html Pt continues to notice increased difficulty c descending stairs. Katrin Vieyra, PT [address], [place], [address], [facility] 07/16/2018 14:22:52 07/25/2018 text/html Pt reports that her knees felt great yesterday morning. Pt went shopping for four hours and noticed increase in knee pain last night. Katrin Vieyra, PT [address], [place], [address], [facility] 07/25/2018 16:20:17 09/15/2018 text/html she returns for follow-up of her bilateral knees. She would like to go forward with injections. She rates the pain at 5 out of 10 in both knees. Pain is made worse with weightbearing and better with rest. Cesar Bonilla MD [address], [place], [address], [facility] 09/15/2018 14:32:13 11/10/2018 text/html She returns for follow-up of her bilateral knees. Her pain is a little bit better after the injections we previously gave her. She rates her pain a 1 out of 10 in both knees. She denies any new numbness or tingling. She is looking into getting stem cell injections performed. Cesar Bonilla MD [address], [place], [address], [facility] 11/10/2018 14:20:30 OBGyn Episode No OBEpisode recorded.
--- OUTSIDE RECORDS SUMMARY | 2025-02-18 11:26 | XMS_ITS | Data Portability ---
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 I used the following Telehealth technology modality: Zoom . During the visit I was located in the office and patient was located at home. care coordination 20 minutes Not available 03/31/2020 16:24:24 05/06/2020 05/06/2020 Patient was seen today via Telehealth by agreement and consent of patient in light of current COVID-19 pandemic. I used the following Telehealth technology modality: Zoom . During the visit I was located in the office and patient was located at home. care coordination 15 minutes Not available 05/06/2020 12:01:51 02/17/2021 02/17/2021 Patient was seen today via Telehealth by agreement and consent of patient in light of current COVID-19 pandemic. I used the following Telehealth technology modality: Zoom. During the visit I was located in the office and patient was located at home. care coordination 30 minutes counseling and educating - 25 minutes -charting minute 5 Not available 02/17/2021 12:13:18 Plan of Treatment Reminders Order Date Submit Date Provider Last Modified By Organization Details Last Modified Time Details Appointments None recorded . Lab lipid panel, serum 2020 021 [facility] ([facility]), [address], [place], [address], 1 22:55:49 CMP, serum or plasma 2020 021 [facility] (Lab), [address], [place], [address], 1 22:55:49 TSH, serum, reflex free T4 2020 021 [facility] ([facility]), [address], [place], [address], 1 22:55:49 CBC w/ auto diff 2020 [address]21 [facility] (Lab), [address], [place], [address], 1 22:55:48 lipid panel, serum 2019 020 [facility], [address] [place] [address], [address], 0 10:57:21 CBC w/ auto diff 2019 020 [facility], [address] [place] [address], [address], 0 10:57:21 CMP, serum or plasma 2019 020 WAYNE [facility], [address] [place], [address], 0 16:32:31 TSH, serum or plasma 2019 020 [facility], [address] [place], [address], 0 10:57:21 urinalys is, dipstick , auto 2019 SUCCESS In-House Results, For Internal Use Only, Do Not Delete/merge, [id number] 0 16:02:43 Referral None recorded . Procedures None recorded . Surgeries None recorded . Imaging MAMMO, screenin g, digital, bilatera l, w/ CAD [address], [address], [address], [place], [address], 0 12:57:01 Medication Orders zolpidem 10 mg tablet 2020 [facility] [address], [address] [place], [place], [id number], 1 12:10:04 hydrocor tisone-a cetic acid 1 %-2 % ear drops [address] [facility], [facility], [facility] [place], [address], 0 14:45:58 zolpidem 10 mg tablet 2019 [facility]FACE [facility], [facility], [place], [address], 0 16:17:47 zolpidem 10 mg tablet 2019 INTERFACE [facility] [address], [address] [place], [place], [id number], 0 14:46:15 aspirin 81 mg tablet,d elayed release 2019 INTERFACE [facility], [facility], [place], [address], 0 14:46:14 Patient TargetsNo targets recorded. Patient Instructions Encounter Date Encounter Id Patient Instructions Last Modified By Organization Details Last Modified Time 12/08/2019 [id number] handicap placard* Not availab le 12/17/2019 10:57:29 low sodium diet (2,000 milligram): care instructions Not available 12/08/2019 14:46:11 eating healthy foods: care instructions Not available 12/08/2019 14:46:11 03/31/2020 [id number] insomnia: care instructions Not available 03/31/2020 16:23:41 07/07/2020 [id number] advance care planning: care instructions Not available 07/07/2020 15:37:12 A healthy lifestyle: care instructions Not available 07/07/2020 15:37:12 preventing falls : care instructions Not available 07/07/2020 15:37:12 eating healthy foods: care instructions Not available 07/07/2020 15:37:12 COUNSELING & COORDINATION of CARE {{Yes* No N/A}}: Increase Exercise {{Yes* No N/A}}: Encourage Weight Loss {{Yes* No N/A}}: Decrease Fat {{Yes* No N/A}}: Diabetic Patient Counseling {{Yes No N/A*}}: Smoking Cessation {{Yes No N/A*}}: Decrease Alcohol {{Yes* No N/A}}: Decrease Salt {{Yes* No N/A}}: Increase Fiber {{Yes* No N/A}}: Increase H20 {{Yes* No N/A}}: Counseled patient regarding Lab/Dx/need for follow-up {{Yes* No N/A}}: Discussed medications, side effects, & compliance {{Yes* No N/A}}: Dental Care {{Yes* No N/A}}: Eye Exam Not available 07/07/2020 16:25:52 Reason for Referral None Reported. Results Created Date Observation Date Name Description Value Unit Range Abnormal Flag Note LastModifiedBy Organization Detail LastModifiedTime 12/08/19 20 12/08/2019 CBC w/ auto diff WBC 6.27 K/uL 4.40-1 0.80 Not Available [facility] (Lab) [address], [place], [address], 12/09/2019 16:32:30 12/08/19 20 12/08/2019 CBC w/ auto diff RBC 4.29 M/uL 4.02-5 .18 Not Available [facility] (Lab) [address] [facility] [address], [place], [address], 12/09/2019 16:32:30 12/08/19 20 12/08/2019 CBC w/ auto diff HGB 13.2 g/dL 11.5-1 5.5 Not Available [facility] (Lab) [address] [facility] [address], [place], [address], 12/09/2019 16:32:30 12/08/19 20 12/08/2019 CBC w/ auto diff HCT 39.6 % 34.5-4 6.5 Not Available [facility] (Lab) [address] [facility] [address], [place], [address], 12/09/2019 16:32:30 12/08/19 20 12/08/2019 CBC w/ auto diff MCV 92.3 fL 80.0-9 7.0 Not Available [facility] (Lab) [address] [facility] [address], [place], [address], 12/09/2019 16:32:30 12/08/19 20 12/08/2019 CBC w/ auto diff MCH 30.8 pg 25.8-3 2.9 Not Available [facility] (Lab) [address] [facility] [address], [place], [address], 12/09/2019 16:32:30 12/08/19 20 12/08/2019 CBC w/ auto diff MCHC 33.3 g/dL 31.0-3 5.0 Not Available [facility] (Lab) [address] [facility] [address], [place], [address], 12/09/2019 16:32:30 12/08/19 20 12/08/2019 CBC w/ auto diff RDW 12.9 % 11.1-1 5.1 Not Available [facility] (Lab) [address], [place], [address], 12/09/2019 16:32:30 12/08/19 20 12/08/2019 CBC w/ auto diff plt 256 K/uL 140-40 0 Not Available [facility] (Lab) [address], [place], [address], 12/09/2019 16:32:30 12/08/19 20 12/08/2019 CBC w/ auto diff MPV 10.30 fL 7.50-1 4.00 Not Available [facility] (Lab) [address], [place], [address], 12/09/2019 16:32:30 12/08/19 20 12/08/2019 CBC w/ auto diff neut% 57.6 % 38.8-7 6.4 Not Available [facility] (Lab) [address], [place], [address], 12/09/2019 16:32:30 12/08/19 20 12/08/2019 CBC w/ auto diff lymph% 34.6 % 17.8-4 6.6 Not Available [facility] (Lab) [address], [place], [address], 12/09/2019 16:32:30 12/08/19 20 12/08/2019 CBC w/ auto diff mono% 5.1 % 3.0-11 .0 Not Available [facility] (Lab) [address], [place], [address], 12/09/2019 16:32:30 12/08/19 20 12/08/2019 CBC w/ auto diff eos% 1.90 % 0.00-6 .00 Not Available [facility] (Lab) [address], [place], [address], 12/09/2019 16:32:30 12/08/19 20 12/08/2019 CBC w/ auto diff baso% 0.5 % 0.0-2. 0 Not Available [facility] ([facility]) [address], [place], [address], 12/09/2019 16:32:30 12/08/19 20 12/08/2019 CBC w/ auto diff Ig% 0.30 % 0.00-3 .00 Not Available [facility] (Lab) [address], [place], [address], 12/09/2019 16:32:30 12/08/19 20 12/08/2019 CBC w/ auto diff NRBC% 0.00 % 0.00-0 .00 Not Available [facility] (Lab) [address] [facility] [address], [place], [address], 12/09/2019 16:32:30 12/08/19 20 12/08/2019 CBC w/ auto diff neut# 3.61 K/uL 1.90-7 .90 Not Available [facility] (Lab) [address] [facility] [address], [place], [address], 12/09/2019 16:32:30 12/08/19 20 12/08/2019 CBC w/ auto diff lymph# 2.17 K/uL 0.95-4 .90 Not Available [facility] (Lab) [address] [facility] [address], [place], [address], 12/09/2019 16:32:30 12/08/19 20 12/08/2019 CBC w/ auto diff mono# 0.32 K/uL 0.14-1 .20 Not Available [facility] (Lab) [address] [facility] [address], [place], [address], 12/09/2019 16:32:30 12/08/19 20 12/08/2019 CBC w/ auto diff eos# 0.12 K/uL 0.00-0 .70 Not Available [facility] (Lab) [address] [facility] [address], [place], [address], 12/09/2019 16:32:30 12/08/19 20 12/08/2019 CBC w/ auto diff baso# 0.03 K/uL 0.00-0 .20 Not Available [facility] (Lab) [address] [facility] [address], [place], [address], 12/09/2019 16:32:30 12/08/19 20 12/08/2019 CBC w/ auto diff Ig# 0.02 K/uL 0.00-0 .30 Not Available [facility] ([facility]) [address] [facility] [address], [place], [address], 12/09/2019 16:32:30 12/08/19 20 12/08/2019 CMP, serum or plasm a glu 87 mg/dL 70-100 Not Available [facility] (Lab) [address] [facility] [address], [place], [address], 12/09/2019 16:32:31 12/08/19 20 12/08/2019 CMP, serum or plasm a BUN 15 mg/dL 7-25 Not Available [facility] (Lab) [address] [facility] [address], [place], [address], 12/09/2019 16:32:31 12/08/19 20 12/08/2019 CMP, serum or plasm a crea 0.71 mg/dL 0.50-1 .10 For patie nts >49 years of age, the refer ence limit for Creat inine is appro ximat mauricio 13% highe r for peopl e ident ified as Afric an-Am slick n. Not Available [facility] (Lab) [address] [facility] [address], [place], [address], 12/09/2019 16:32:31 12/08/19 20 12/08/2019 CMP, serum or plasm a GFR 80.39 Refer ence Range for eGFR is >=60 ml/mi n/1.7 3m^2 Not Available [facility] (Lab) [address] [facility] [address], [place], [address], 12/09/2019 16:32:31 12/08/19 20 12/08/2019 CMP, serum or plasm a GFR afric 97.44 Refer ence Range for eGFR is >=60 ml/mi n/1.7 3m^2 Not Available [facility] (Lab) [address], [place], [address], 12/09/2019 16:32:31 12/08/19 20 12/08/2019 CMP, serum or plasm a BUN/crea 21 ratio 10-20 high Not Available [facility] (Lab) [address] [facility] [address], [place], [address], 12/09/2019 16:32:31 12/08/19 20 12/08/2019 CMP, serum or plasm a Na 138 mmol/ L 137-14 5 Not Available [facility] (Lab) [address] [facility] [address], [place], [address], 12/09/2019 16:32:31 12/08/19 20 12/08/2019 CMP, serum or plasm a K 4.3 mmol/ L 3.5-5. 3 Not Available [facility] (Lab) [address] [facility] [address], [place], [address], 12/09/2019 16:32:31 12/08/19 20 12/08/2019 CMP, serum or plasm a cL 96 mmol/ L 98-110 low Not Available [facility] (Lab) [address] [facility] [address], [place], [address], 12/09/2019 16:32:31 12/08/19 20 12/08/2019 CMP, serum or plasm a CO2 29 mmol/ L 22-30 Not Available [facility] (Lab) [address] [facility] [address], [place], [address], 12/09/2019 16:32:31 12/08/19 20 12/08/2019 CMP, serum or plasm a Ca 10.0 mg/dL 8.6-10 .3 Not Available [facility] (Lab) [address] [facility] [address], [place], [address], 12/09/2019 16:32:31 12/08/19 20 12/08/2019 CMP, serum or plasm a TP 7.5 g/dL 6.3-8. 2 Not Available [facility] (Lab) [address] [facility] [address], [place], [address], 12/09/2019 16:32:31 12/08/19 20 12/08/2019 CMP, serum or plasm a alb 4.5 g/dL 3.5-5. 0 Not Available [facility] (Lab) [address] [facility] [address], [place], [address], 12/09/2019 16:32:31 12/08/19 20 12/08/2019 CMP, serum or plasm a glob 3.0 g/dL 1.9-3. 7 Not Available [facility] (Lab) [address] [facility] [address], [place], [address], 12/09/2019 16:32:31 12/08/19 20 12/08/2019 CMP, serum or plasm a A/G 1.5 ratio 1.0-2. 5 Not Available [facility] (Lab) [address] [facility] [address], [place], [address], 12/09/2019 16:32:31 12/08/19 20 12/08/2019 CMP, serum or plasm a tbil 0.6 mg/dL 0.2-1. 3 Not Available [facility] (Lab) [address] [facility] [address], [place], [address], 12/09/2019 16:32:31 12/08/19 20 12/08/2019 CMP, serum or plasm a ALKP 86 U/L 38-120 Not Available [facility] (Lab) [address] [facility] [address], [place], [address], 12/09/2019 16:32:31 12/08/19 20 12/08/2019 CMP, serum or plasm a AST 22 U/L 14-36 Not Available [facility] ([facility]) [address], [place], [address], 12/09/2019 16:32:31 12/08/19 20 12/08/2019 CMP, serum or plasm a ALT 19 U/L <35 Not Available [facility] (Lab) [address] [facility] [address], [place], [address], 12/09/2019 16:32:31 12/08/19 20 12/08/2019 TSH, serum , refle x free T4 TSH 2.47 mIU/L 0.40-4 .50 Not Available [facility] ([facility]) [address] [facility] [address], [place], [address], 12/09/2019 16:32:32 12/08/19 20 12/08/2019 lipid panel , blood chol 236 mg/dL 125-20 0 high Not Available [facility] ([facility]) [address] [facility] [address], [place], [address], 12/09/2019 16:32:32 12/08/19 20 12/08/2019 lipid panel , blood HDL 72.0 mg/dL 40.0-6 0.0 high Not Available [facility] ([facility]) [address] [facility] [address], [place], [address], 12/09/2019 16:32:32 12/08/19 20 12/08/2019 lipid panel , blood trig 117 mg/dL <150 Not Available [facility] ([facility]) [address] [facility] [address], [place], [address], 12/09/2019 16:32:32 12/08/19 20 12/08/2019 lipid panel , blood LDLC 141 mg/dL <130 high Kranthi able range : <100 mg/dL for patie nts with CHD or diabe trino. Kranthi able range : <70 mg/dL for diabe tic patie nts with known heart disea se. Not Available [facility] (Lab) [address] [facility] [address], [place], [address], 12/09/2019 16:32:32 12/08/19 20 12/08/2019 lipid panel , blood chol/HDL 3 ratio <5 Refer ence value is relat ed to risk level s as recom manolo d by the [facility]. Not Available [facility] ([facility]) [address], [place], [address], 12/09/2019 16:32:32 12/08/19 20 12/08/2019 lipid panel , blood VLDL 23 mg/dL 5-40 Typic ally, high level s of VLDL corre spond s to a high level of trigl yceri judy in the blood . There fore, calcu lated VLDL is based on trigl yceri de value . Not Available [facility] (Lab) [address], [place], [address], 12/09/2019 16:32:32 12/08/19 20 12/08/2019 urina lysis , dipst ick, auto Unknown Analyte Yellow Not Available In-Kya se Results For Internal Use Only, Do Not Delete/merge, 12/08/2019 14:44:26 12/08/1912/08/2019 urina lysis , dipst ick, auto Unknown Analyte Clear Not Available In-Kya se Results For Internal Use Only, Do Not Delete/merge, 12/08/2019 14:44:26 12/08/19 20 12/08/2019 urina lysis , dipst ick, auto Unknown Analyte Trace Not Available In-Kya se Results For Internal Use Only, Do Not Delete/merge, 12/08/2019 14:44:26 12/08/1912/08/2019 urina lysis , dipst ick, auto Unknown Analyte Negati ve Not Available In-House Results For Internal Use Only, Do Not Delete/merge, 12/08/2019 14:44:26 12/08/19 20 12/08/2019 urina lysis , dipst ick, auto Unknown Analyte 0.2 Not Available In-Kya se Results For Internal Use Only, Do Not Delete/merge, 12/08/2019 14:44:26 12/08/19 20 12/08/2019 urina lysis , dipst ick, auto Unknown Analyte Negati ve Not Available In-House Results For Internal Use Only, Do Not Delete/merge, 12/08/2019 14:44:26 12/08/19 20 12/08/2019 urina lysis , dipst ick, auto Unknown Analyte 7.0 Not Available In-Kya se Results For Internal Use Only, Do Not Delete/merge, 12/08/2019 14:44:26 12/08/19 20 12/08/2019 urina lysis , dipst ick, auto Unknown Analyte Trace Not Available In-Kya se Results For Internal Use Only, Do Not Delete/merge, 12/08/2019 14:44:26 12/08/19 20 12/08/2019 urina lysis , dipst ick, auto Unknown Analyte 1.015 Not Available In-Kya se Results For Internal Use Only, Do Not Delete/merge, 12/08/2019 14:44:26 12/08/19 20 12/08/2019 urina lysis , dipst ick, auto Unknown Analyte Negati ve Not Available In-House Results For Internal Use Only, Do Not Delete/merge, 12/08/2019 14:44:26 12/08/19 20 12/08/2019 urina lysis , dipst ick, auto Unknown Analyte Negati ve Not Available In-House Results For Internal Use Only, Do Not Delete/merge, 12/08/2019 14:44:26 12/08/19 20 12/08/2019 urina lysis , dipst ick, auto Unknown Analyte Negati ve Not Available In-House Results For Internal Use Only, Do Not Delete/merge, 12/08/2019 14:44:26 03/22/20 21 03/22/2021 CBC w/ auto diff WBC 4.87 K/uL 4.40-1 0.80 Not Available [facility] ([facility]) [address] [facility] [address], [place], [address], 03/22/2021 22:55:48 03/22/20 21 03/22/2021 CBC w/ auto diff RBC 4.24 M/uL 4.02-5 .18 Not Available [facility] ([facility]) [address] [facility] [address], [place], [address], 03/22/2021 22:55:48 03/22/20 21 03/22/2021 CBC w/ auto diff HGB 13.1 g/dL 11.5-1 5.5 Not Available [facility] ([facility]) [address] [facility] [address], [place], [address], 03/22/2021 22:55:48 03/22/20 21 03/22/2021 CBC w/ auto diff HCT 40 % 35-47 Not Available [facility] ([facility]) [address] [facility] [address], [place], [address], 03/22/2021 22:55:48 03/22/20 21 03/22/2021 CBC w/ auto diff MCV 93.9 fL 80.0-9 7.0 Not Available [facility] ([facility]) [address] [facility] [address], [place], [address], 03/22/2021 22:55:48 03/22/20 21 03/22/2021 CBC w/ auto diff MCH 30.9 pg 25.8-3 2.9 Not Available [facility] ([facility]) [address] [facility] [address], [place], [address], 03/22/2021 22:55:48 03/22/20 21 03/22/2021 CBC w/ auto diff MCHC 32.9 g/dL 31.0-3 5.0 Not Available [facility] ([facility]) [address] [facility] [address], [place], [address], 03/22/2021 22:55:48 03/22/20 21 03/22/2021 CBC w/ auto diff RDW 13.0 % 11.1-1 5.1 Not Available [facility] ([facility]) [address] [facility] [address], [place], [address], 03/22/2021 22:55:48 03/22/20 21 03/22/2021 CBC w/ auto diff plt 284 K/uL 140-40 0 Not Available [facility] ([facility]) [address] [facility] [address], [place], [address], 03/22/2021 22:55:48 03/22/20 21 03/22/2021 CBC w/ auto diff MPV 9.80 fL 7.50-1 4.00 Not Available [facility] ([facility]) [address] [facility] [address], [place], [address], 03/22/2021 22:55:48 03/22/20 21 03/22/2021 CBC w/ auto diff neut% 52.4 % 38.8-7 6.4 Not Available [facility] ([facility]) [address] [facility] [address], [place], [address], 03/22/2021 22:55:48 03/22/20 21 03/22/2021 CBC w/ auto diff lymph% 37.4 % 17.8-4 6.6 Not Available [facility] ([facility]) [address] [facility] [address], [place], [address], 03/22/2021 22:55:48 03/22/20 21 03/22/2021 CBC w/ auto diff mono% 5.7 % 3.0-11 .0 Not Available [facility] ([facility]) [address] [facility] [address], [place], [address], 03/22/2021 22:55:48 03/22/20 21 03/22/2021 CBC w/ auto diff eos% 3.50 % 0.00-6 .00 Not Available [facility] ([facility]) [address] [facility] [address], [place], [address], 03/22/2021 22:55:48 03/22/20 21 03/22/2021 CBC w/ auto diff baso% 0.8 % 0.0-2. 0 Not Available [facility] ([facility]) [address] [facility] [address], [place], [address], 03/22/2021 22:55:48 03/22/20 21 03/22/2021 CBC w/ auto diff Ig% 0.20 % 0.00-3 .00 Not Available [facility] ([facility]) [address], [place], [address], 03/22/2021 22:55:48 03/22/20 21 03/22/2021 CBC w/ auto diff NRBC% 0.00 % 0.00-0 .00 Not Available [facility] ([facility]) [address] [facility] [address], [place], [address], 03/22/2021 22:55:48 03/22/20 21 03/22/2021 CBC w/ auto diff neut# 2.55 K/uL 1.90-7 .90 Not Available [facility] ([facility]) [address] [facility] [address], [place], [address], 03/22/2021 22:55:48 03/22/20 21 03/22/2021 CBC w/ auto diff lymph# 1.82 K/uL 0.95-4 .90 Not Available [facility] (Lab) [address] [facility] [address], [place], [address], 03/22/2021 22:55:48 03/22/20 21 03/22/2021 CBC w/ auto diff mono# 0.28 K/uL 0.14-1 .20 Not Available [facility] (Lab) [address] [facility] [address], [place], [address], 03/22/2021 22:55:48 03/22/20 21 03/22/2021 CBC w/ auto diff eos# 0.17 K/uL 0.00-0 .70 Not Available [facility] ([facility]) [address] [facility] [address], [place], [address], 03/22/2021 22:55:48 03/22/20 21 03/22/2021 CBC w/ auto diff baso# 0.04 K/uL 0.00-0 .20 Not Available [facility] (Lab) [address] [facility] [address], [place], [address], 03/22/2021 22:55:48 03/22/20 21 03/22/2021 CBC w/ auto diff Ig# 0.01 K/uL 0.00-0 .30 Not Available [facility] ([facility]) [address] [facility] [address], [place], [address], 03/22/2021 22:55:48 03/22/20 21 03/22/2021 CMP, serum or plasm a glu 99 mg/dL 70-100 Not Available [facility] (Lab) [address] [facility] [address], [place], [address], 03/22/2021 22:55:49 03/22/2003/22/2021 CMP, serum or plasm a BUN 17 mg/dL 7-25 Not Available [facility] (Lab) [address] [facility] [address], [place], [address], 03/22/2021 22:55:49 03/22/2003/22/2021 CMP, serum or plasm a crea 0.87 mg/dL 0.50-1 .10 For patie nts >49 years of age, the refer ence limit for Creat inine is appro ximat mauricio 13% highe r for peopl e ident ified as Afric an-Am slick n. Not Available [facility] (Lab) [address] [facility] [address], [place], [address], 03/22/2021 22:55:49 03/22/2003/22/2021 CMP, serum or plasm a GFR 63.37 Refer ence Range for eGFR is >=60 ml/mi n/1.7 3m^2 Not Available [facility] (Lab) [address] [facility] [address], [place], [address], 03/22/2021 22:55:49 03/22/20 21 03/22/2021 CMP, serum or plasm a GFR afric 76.80 Refer ence Range for eGFR is >=60 ml/mi n/1.7 3m^2 Not Available [facility] (Lab) [address] [facility] [address], [place], [address], 03/22/2021 22:55:49 03/22/20 21 03/22/2021 CMP, serum or plasm a BUN/crea 20 ratio 10-20 Not Available [facility] [facility] [address] [facility] [address], [place], [address], 03/22/2021 22:55:49 03/22/20 21 03/22/2021 CMP, serum or plasm a Na 134 mmol/ L 134-14 4 Not Available [facility] (Lab) [address] [address], [place], [address], 03/22/2021 22:55:49 03/22/20 21 03/22/2021 CMP, serum or plasm a K 3.9 mmol/ L 3.5-5. 3 Not Available [facility] (Lab) [address] [facility] [address], [place], [address], 03/22/2021 22:55:49 03/22/20 21 03/22/2021 CMP, serum or plasm a cL 98 mmol/ L 98-110 Not Available [facility] (Lab) [address] [address], [place], [address], 03/22/2021 22:55:49 03/22/20 21 03/22/2021 CMP, serum or plasm a CO2 31 mmol/ L 22-30 high Not Available [facility] (Lab) [address] [address], [place], [address], 03/22/2021 22:55:49 03/22/20 21 03/22/2021 CMP, serum or plasm a Ca 9.6 mg/dL 8.6-10 .3 Not Available [facility] (Lab) [address] [address], [place], [address], 03/22/2021 22:55:49 03/22/20 21 03/22/2021 CMP, serum or plasm a TP 7.0 g/dL 6.3-8. 2 Not Available [facility] (Lab) [address] [facility] [address], [place], [address], 03/22/2021 22:55:49 03/22/20 21 03/22/2021 CMP, serum or plasm a alb 4.1 g/dL 3.5-5. 0 Not Available [facility] (Lab) [address] [facility] [address], [place], [address], 03/22/2021 22:55:49 03/22/20 21 03/22/2021 CMP, serum or plasm a glob 2.9 g/dL 1.9-3. 7 Not Available [facility] (Lab) [address] [facility] [address], [place], [address], 03/22/2021 22:55:49 03/22/20 21 03/22/2021 CMP, serum or plasm a A/G 1.4 ratio 1.0-2. 5 Not Available [facility] (Lab) [address] [facility] [address], [place], [address], 03/22/2021 22:55:49 03/22/20 21 03/22/2021 CMP, serum or plasm a tbil 0.5 mg/dL 0.2-1. 3 Not Available [facility] (Lab) [address] [facility] [address], [place], [address], 03/22/2021 22:55:49 03/22/20 21 03/22/2021 CMP, serum or plasm a ALKP 108 U/L 38-120 Not Available [facility] (Lab) [address] [facility] [address], [place], [address], 03/22/2021 22:55:49 03/22/20 21 03/22/2021 CMP, serum or plasm a AST 21 U/L 14-36 Not Available [facility] (Lab) [address] [facility] [address], [place], [address], 03/22/2021 22:55:49 03/22/2003/22/2021 CMP, serum or plasm a ALT 14 U/L <35 Not Available [facility] (Lab) [address] [facility] [address], [place], [address], 03/22/2021 22:55:49 03/22/20 21 03/22/2021 TSH, serum , refle x free T4 TSH 2.96 mIU/L 0.40-4 .50 Not Available [facility] (Lab) [address] [facility] [address], [place], [address], 03/22/2021 22:55:49 03/22/20 21 03/22/2021 lipid panel , serum chol 241 mg/dL 125-20 0 high Not Available [facility] (Lab) [address] [facility] [address], [place], [address], 03/22/2021 22:55:49 03/22/2003/22/2021 lipid panel , serum HDL 70.0 mg/dL 40.0-6 0.0 high Not Available [facility] (Lab) [address] [facility] [address], [place], [address], 03/22/2021 22:55:49 03/22/2003/22/2021 lipid panel , serum trig 108 mg/dL <150 Not Available [facility] (Lab) [address] [facility] [address], [place], [address], 03/22/2021 22:55:49 03/22/2003/22/2021 lipid panel , serum LDLC 149 mg/dL <130 high Kranthi able range : <100 mg/dL for patie nts with CHD or diabe trino. Kranthi able range : <70 mg/dL for diabe tic patie nts with known heart disea se. Not Available [facility] (Lab) [address], [place], [address], 03/22/2021 22:55:49 03/22/2003/22/2021 lipid panel , serum chol/HDL 3 ratio <5 Refer ence value is relat ed to risk level s as recom manolo d by the [facility]. Not Available [facility] (Lab) [address], [place], [address], 03/22/2021 22:55:49 03/22/2003/22/2021 lipid panel , serum VLDL 22 mg/dL 5-40 Typic ally, high level s of VLDL corre spond s to a high level of trigl yceri judy in the blood . There fore, calcu lated VLDL is based on trigl yceri de value . Not Available [facility] (Lab) [address] [facility] [address], [place], [address], 03/22/2021 22:55:49 01/21/20 20 07/09/2019 MAMMO , scree madi, digit al, bilat eral, w/ CAD No observ ation record ed. [facility] [address] [facility] [address], [place], [address], 01/21/2020 12:06:48 01/21/20 20 07/09/2019 DEXA, axial skele ton No observ ation record ed. [facility] [address], [place], [address], 01/21/2020 12:06:48 07/07/20 20 keiry acosta/cesario fabian resul t No observ ation record ed. [email or web address] Not Available 2019 14:16:56 07/19/20 20 07/18/2020 mg left scree madi uni digta l w/3D Board Certif ied Radiol ogists . [facility], [place] __ Patien t: KAREN BACH Sex: F : 1944 Servic e Date: 2019 Test Name: MG LEFT SCREEN ING UNI DIGTAL W/3D Reques tor: KILO ARMAS EXAM: UNILAT ERAL LEFT BREAST SCREEN ING MAMMOG MARY and TOMOSY NTHESI S, CAD. HISTOR Y: 74-yea r-old female with breast cancer and right mastec tarik 2001. She had a grandm other and aunt also with breast cancer . No hormon es. TECHNI QUE: Standa rd digita l mammog raphic images were acquir ed. Tomogr aphic images were also obtain ed in the CC and MLO projec tions. Comput er aided detect ion was used. PRIOR STUDIE S: 019, 07/02/20 18 FINDIN GS: Cranio caudal and mediol ateral obliqu e projec tions of the left breast demons trates hetero genous fibrog landul ar tissue with scatte red glandu lar compon ents. No domina nt masses , spicul ated lesion s, groupe d calcif icatio ns or skin change s are eviden t. Tomosy nthesi s does not demons trate any additi onal mass or distor tion. Fibrog landul ar tissue patter n simila r to previo us. Skin lesion s are marked . DENSIT Y: B - There are scatte red areas of fibrog landul ar densit y. IMPRES LADONNA: 1. Status post right mastec tarik, left breast withou t radiog raphic eviden ce of malign rachid. 2. Monthl y self breast examin ation and annual mammog kemar is recomm ended. BI-RAD S: 2 - BENIGN FINDIN G. Patien t with a BI-RAD S catego ry of 1 or 2 receiv ed a letter in lay termin ology regard ing the normal or benign findin gs. They will be remind ed by mail at the time of the next recomm ended exam. Thank you. Romel alonzo MS Jovani mateus Jasmine ojeda can access this report 20/05 by mary ignacio on to https: //www. [employer]. DOZ Servic e perfor med during Public Health Emerge ncy (42 U.S.C. 247d-6 d) PPE suppli es utiliz ed accord ing to CDC guidel dontae Interp reted and Electr onical ly signed by: Jaki You [facility] [address] [facility] [address] , [id number] [place] [address] P [phone] WAYNE [facility] [address], [place], [address], 07/20/2020 18:28:33 Result Notes None recorded. 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 breast 97451040 Active Esther Altamirano-Bar ajas null, [facility] 7 11:10:43 Hypokalemia 08582878 Completed 12/08/2019 Kilo Armas NP [address] [place] [address],[address], [place], [address], [facility] 0 14:31:55 Essential hypertensio n 85840863 Completed 200802/17/2021 Francesca Armas NP [address] [place] [address],[address], [place], [address], [facility] 1 12:05:30 Insomnia 029992391 Active 2008 Esther Altamirano-Bar ajas null, [facility] 7 11:10:43 Benign essential hypertensio n 3481832 Active Esther Carlsonz-Bar ajas null, [facility] 7 11:10:43 Mixed hyperlipide paulette 231508278 Completed 12/08/2019 Francesca Armas NP [address] [place] [address],[address], [place], [address], [facility] 0 14:32:07 Bilateral knee pain Active 2017 Francesca Armas NP [address] [place] [address],[address], [place], [address], [facility] 8 11:14:33 Body mass index 30+ - obesity 557610260 Active Esther Altamirano-Bar ajas null, [facility] 7 11:10:43 Hyperlipide paulette 25610475 Active Esther Altamirano-Bar arleneas null, [facility] 7 11:10:43 Notes:Intraductal carcinoma Problem Notes None recorded. Procedures Surgical History Date Name Laterality Status Provider Name and Address Organization Details Recorded Time 07/07/20 20 PHQ-9 completed Esther Altamirano-Narayanan [facility] 07/07/2020 14:54:45 07/07/20 20 Visual Acuity completed Esther Altamirano-Narayanan [facility] 07/07/2020 14:55:03 07/07/20 20 AWE 5-10 Year Plan - Female completed Francesca Armas NP [address] [place] [address],[address], [place], [address], [facility] 07/07/2020 16:23:27 07/07/20 20 [facility] 15:00:51 07/07/20 20 Fall Risk Screening Tool completed Esther King [facility] 07/07/2020 14:54:16 06/25/20 19 Fall Risk Screening Tool completed Esther King [facility] 06/25/2019 16:03:38 06/25/20 19 PHQ-9 completed Esther Ramoss [facility] 06/25/2019 16:04:35 06/25/20 19 Visual Acuity completed Esther King [facility] 06/25/2019 16:13:41 06/25/20 19 AWE 5-10 Year Plan - Female completed Francesca Armas NP [address] [place] [address],[address] 06/26/2019 08:31:16 06/25/20 19 Mini-COG completed Francesca Armas NP [address] [place] [address],[address] 06/26/2019 08:31:50 07/31/20 17 MWE Male and Female- [place] - FOR REVIEW completed Francesca Armas NP [address] [place] [address],[address], [address] [place] [address] 07/31/2017 14:36:20 10/28/19 17 Colonoscopy completed Esther Christine [facility] 07/07/2020 14:48:43 05/28/20 13 4: Non-user Tobacco completed MAJO Fuentes [address] [place] [address],[address] [place] [address], [address] [place] [address] 05/28/2013 11:40:58 05/28/20 13 5: Verification Current Meds in MR - List of current medications completed MAJO Fuentes [address] [place] [address],[address], [phone] 05/28/2013 11:40:58 05/28/20 13 1: LDL- C not performed within 12 months, reason not specified MAJO Aguirre [address] [place] [address],[address] [place], [address], [facility] Jael [place] 05/28/2013 11:40:58 10/29/19 03 Total Mastectomy completed Not Available On license of [facility] 03:01:42 Imaging Results Imaging Date Name Status LastModified by Organiz ation Details LastModified Time 07/09/2019 MAMMO, screening, digital, bilateral, w/ CAD completed [facility] [address], [place], [address], 01/21/2020 12:06:48 07/09/2019 DEXA, axial skeleton completed [facility] [address] [facility] [address], [place], [address], 01/21/2020 12:06:48 07/07/2020 imaging[email or web address] Information not available 07/08/2020 14:16:56 07/18/2020 mg left screening uni digtal w/3D completed [facility] [address], [place], [address], 07/20/2020 18:28:33 Procedure Notes None recorded. Medical Equipment None Reported. Allergies No known drug allergies Medications Name Sig Start Date Stop Date Status Note LastModified by Organization Details LastModified Time Prescriptio n - Renewal 05/22 completed Not Available Not Available Not Available Prescriptio n - New 01/21 completed Not Available Not Available Not Available Prescriptio n - Prior Authorizati on Request 05/06 completed Not Available Not Available Not Available erythromyci n 500 mg tablet active Not Available Not Available Not Available ibuprofen 800 mg tablet TAKE ONE (1) TABLET(S) BY MOUTH EVERY EIGHT HOURS NEEDED FOR PAIN. active Not Available Not Available No t Available ranitidine 300 mg tablet TAKE ONE (1) TABLET(S) BY MOUTH NIGHTLY. active Not Available Not Available No t Available hydrocodone 5 mg-acetamin ophen 325 mg tablet active Not Available Not Available No t Available alendronate 70 mg tablet Take 1 tablet every week by oral route. 2010 active Not Available Not Available Not Avai lable benazepril 20 mg-hydrochl orothiazide 25 mg tablet active Not Available Not Available Not Available Nexium 40 mg capsule,del ayed release TAKE ONE (1) CAPSULE(S ) BY MOUTH DAILY. SHOULD BE TAKEN 30-60 MINUTES PRIOR TO MEAL. active Not Available Not Available No t Available aspirin 81 mg tablet,za yed release Take 1 tablet every day by oral route. active Not Available Not Available No t Available Nexium 20 mg capsule,del ayed release active Not Available Not Available Not Available meloxicam 7.5 mg tablet Take 1 tablet every day by oral route. 11/28 completed Not Available Not Available Not Available hydrocortis one-acetic acid 1 %-2 % ear drops INSTILL TWO (2) DROPS TO AFFECTED EAR(S) BY OTIC ROUTE FOUR TIMES A DAY. 07/07 completed Not Available Not Available Not Available benzonatate 100 mg capsule active Not Available Not Available Not Available promethazin e 25 mg tablet active Not Available Not Available Not Available hydrochloro thiazide 25 mg tablet TAKE ONE (1) TABLET(S) BY MOUTH EVERY DAY IN THE MORNING. active Not Available Not Available No t Available zolpidem 5 mg tablet Take 1 tablet as needed by oral route. active Not Available Not Available No t Available zolpidem 10 mg tablet TAKE ONE (1) TABLET(S) BY MOUTH DAILY AT BEDTIME NEEDED. active Not Available Not Available No t Available methylpredn isolone 4 mg tablets in a dose pack active Not Available Not Available Not Available neomycin 500 mg tablet active Not Available Not Available Not Available hydrocodone 7.5 mg-acetamin ophen 500 mg tablet active Not Available Not Available No t Available amoxicillin 875 mg-potassiu m clavulanate 125 mg tablet active Not Available Not Available Not Available Hctz/Reserp ine/Hydrala zine 25 mg-0.1 mg-15 mg tablet active Not Available Not Available Not Available Cinnamon 500 mg capsule Take by oral route. 11/28 completed Not Available Not Available Not Available Boostrix Tdap 2.5 Lf unit-8 mcg-5 Lf/0.5 mL intramuscul ar syringe IMMUNIZAT ION GIVEN 07/19 completed Not Available Not Available Not Available magnesium active Not Available Not Arelis ilable Not Available aspirin 81mg one daily 01/21 completed Not Available Not Available Not Available calcium 2000 mcg daily active Not Available Not Available No t Available cranberry 2100 mg daily 05/06 completed Not Available Not Available Not Available Glucosamine one tab daily 07/31 completed Not Available Not Available Not Available potassium PRN active Not Available Not Arelis ilable Not Available Vitamin D3 active Not Available Not Av ailable Not Available Chondroitin Sulfate one tab daily 07/31 completed Not Available Not Available Not Available Calcium 500 1 tablet once a day 01/21 completed Not Available Not Available Not Available collagen (bovine) 06/25 completed Not Available Not Available Not Available hydrocodone 7.5 mg-acetamin ophen 500 mg/15 mL oral solution active Not Available Not Available Not Available GaviLyte-G 236 gram-22.74 gram-6.74 gram-5.86 gram oral solution active Not Available Not Available Not Available Suprep Bowel Prep Kit 17.5 gram-3.13 gram-1.6 gram oral solution USE DIRECTED. active Not Available Not Available No t Available red yeast rice once a day 07/07 completed Not Available Not Available Not Available Fluzone 5719-2896 45 mcg (15 mcg x 3)/0.5 mL intramuscul ar suspension TO BE ADMINISTE RED BY PHARMACIS T FOR IMMUNIZAT ION active Not Available Not Available No t Available Fluvirin 9736-3588 45 mcg (15 mcg x 3)/0.5 mL intramuscul ar suspension INJECT 0.5 ML INTRAMUSC ULARLY DIRECTED. active Not Available Not Available No t Available Fluvirin 3042-6004 45 mcg (15 mcg x 3)/0.5 mL intramuscul ar suspension IMMUNIZAT ION GIVEN active Not Available Not Available No t Available Shingrix (PF) 50 mcg/0.5 mL intramuscul ar suspension, kit RECONSTIT SRI AND ADMINISTE R 0.5 ML IM 02/17 completed Not Available Not Available Not Available Flublok Quad (PF) 180 mcg (45 mcg x 4)/0.5 mL IM syringe IMMUNIZAT ION GIVEN 11/28 completed Not Available Not Available Not Available Fluzone High-Dose Quad (PF) 240 mcg/0.7 mL IM syringe 02/17 completed Not Available Not Available Not Available Vitals Date Recorded Body height Body mass index (BMI) Body weight Heart rate Respiratory rate Body temperature Oxygen saturation Oxygen saturation in Arterial blood by Pulse oximetry Pain severity - 0-10 verbal numeric rating [Score] - Reported Systolic blood pressure Diastolic blood pressure Systolic blood pressure Diastolic blood pressure Provider Name and Address Organization Details Last Updated DateTime 0 147.95 cm 32.5 kg/m2 56413 g 56 /min 17 /min 97.7 [degF] 98 % 98 % 0 158 mm[Hg] 73 mm[Hg] 130 mm[Hg] 80 mm[Hg] Esther stanton [facility] 0 14:50:14 Date Recorded Body height Body mass index (BMI) Body weight Pain severity - 0-10 verbal numeric rating [Score] - Reported Systolic blood pressure Diastolic blood pressure Provider Name and Address Organization Details Last Updated DateTime 0 147.95 cm 32.1 kg/m2 85426.8 2 g 0 120 mm[Hg] 80 mm[Hg] Esther stanton [facility] 0 16:23:15 Date Recorded Body height Provider Name an d Address Organization Details Last Updated DateTime 05/06/2020 147.95 cm Esther King [facility] 05/06/2020 11:44:54 Date Recorded Body height Body mass index (BMI) Body weight Systolic blood pressure Diastolic blood pressure Provider Name and Address Organization Details Last Updated DateTime 07/07/2020 147.95 cm 31.8 kg/m2 69474.43 g 158 mm[Hg] 78 mm[Hg] Esther stanton [facility] 0 15:41:40 Date Recorded Body height Body mass index (BMI) Body weight Systolic blood pressure Diastolic blood pressure Provider Name and Address Organization Details Last Updated DateTime 02/17/2021 147.95 cm 31.9 kg/m2 15780.22 g 128 mm[Hg] 70 mm[Hg] Esther stanton [facility] 1 11:48:41 Social History Question Answer Notes LastModified by Organizat ion Details LastModified Time Tobacco Smoking Status Former Smoker quit in 2003 Estefanía byrnes [facility] 08/05/2014 11:11:07 Do You Have An Advance Directive? Yes Per Pt She Has Advanced Directive Will Bring To Next Visit Information not available 05/22/2018 What Is Your Level Of Alcohol Consumption? Occasional Information not available 06/25/2019 What Is Your Level Of Caffeine Consumption? Moderate Diet Coke- Diet Pepsi Information not available 06/25/2019 How Much Tobacco Do You Chew? None [email or web address] Information not available 08/05/2014 What Type Of Diet Are You Following? REGULAR Information not available 07/27/2015 Which Illicit Or Recreational Drugs Have You Used? None Information not available 07/27/2015 Have You Directly Handled Bats, Rodents, Or Primates From Ebola Endemic Areas? No Information not available 07/27/2015 Have You Had Contact With Blood, Bodily Fluids, Or Human Remains Of A Patient Known To Have Or Suspected To Have Ebola Virus Disease? No Information not available 07/27/2015 Do You Reside In Or Have You Traveled To An Area Where Ebola Virus Transmission Is Active? No Information not available 07/27/2015 Do You Or Have You Ever Used E-cigarettes Or Vape? 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 No Information not available 12/08/2019 If Pulse Oximetry Was Done: Is The Patient's Sp02 Less Than 93% On Room Air? No Information not available 03/31/2020 Date Of Last Mammogram 07/09/2019 [email or web address] Information not available 01/21/2020 Marital Status [email or web address] Informati on not available 08/05/2014 What Was The Date Of Your Most Recent Tobacco Screening? 03/31/2020 Information not available 03/31/2020 Do You Or Have You Ever Used Smokeless Tobacco? Never Used Smokeless Tobacco Information not available 06/25/2019 How Much Tobacco Do You Smoke? No [email or web address] Information not available 11/28/2018 General Stress Level Low Information not available 07/27/2015 How Many Years Have You Smoked Tobacco? 4 [email or web address] Information not available 11/28/2018 Sex: Unknown Functional Status Question Answer Note LastModified by Organizat ion Details LastModified Time What is your exercise level? Occasional Information not available 07/27/2015 Mental Status None recorded. Family History Relationship Description Onset Age of this Age Resolved Age Notes LastModified by Organization Details LastModified Time Mother Malignant neoplastic disease previo usly record ed as Cancer - Specif y Type (ie colon, breast , brain) [email or web address] Not available 07/07/2020 14:36:39 Mother Hypertensive disorder previo usly record ed as Hypert ension [email or web address] Not available 05/28/2016 13:44:02 Medical History Condition Response Cancer (If yes, specify type) Y Gynecological History Statement/Question Response If Post Menopausal, Age at Menopause 51 Number of pregnancies? 2 Hormone replacement N Date of last mammogram? 06/28/2019 Number of miscarriages? 1 Number of live births? 1 Date of last pap smear? 11/05/2008 Obstetrics History GPAL:G 0 P 0 0 0 0 Immunizations Vaccine Type Date Status Note Provider Nam e and Address Organization Details Recorded Time Influenza, high-dose, trivalent, PF 3 completed Esther King [facility] 07/31/2017 11:11:30 Influenza, split virus, quadrivalent, preservative 4 completed Esther King [facility] 07/31/2017 11:11:30 Influenza, high-dose, trivalent, PF 5 completed Esther Altamirano-Narayanan [facility] 07/31/2017 11:11:30 Pneumococcal conjugate PCV 13 7 completed Esther King [facility] 07/31/2017 11:11:30 influenza, unspecified formulation 7 [facility] Esther King [facility] 07/31/2017 11:11:30 Influenza, high-dose, trivalent, PF 7 completed Esther King [facility] 07/31/2017 11:11:30 pneumococcal polysaccharide PPV23 3 completed Esther Altamirano-Narayanan [facility] 07/31/2017 11:42:48 influenza, unspecified formulation 8 completed Charmaine Gamble [facility] 11/28/2018 13:42:37 Influenza, high-dose, trivalent, PF 9 completed Jazz Handy [facility] 08/04/2019 13:19:43 Tdap 0 completed Esther AltamiranoNarayanan [facility] 07/12/2020 16:17:39 zoster recombinant 0 [facility]17[facility] 11:49:48 COVID-19, mRNA, LNP-S, PF, 30 mcg/0.3 mL dose [facility]/17[facility]2021 11:50:00 COVID-19, mRNA, LNP-S, PF, 30 mcg/0.3 mL dose 1 [place] [facility] 02/17/2021 11:50:08 Influenza, split virus, quadrivalent, preservative 0 completed [facility] 02/17/2021 11:50:16 Past Encounters Encounter ID Performer Location Encounter Start Date Encounter Closed Date Diagnosis/Indication Diagnosis SNOMED-CT Code Diagnosis ICD10 Code Diagnosis Note [id number] [facility] [place] [address] [place] [address] 05/30/2009 11:01:18 05/30/2009 12:00:48 [id number] [facility]CAST [facility] [address] [place] [address] 03/24/2010 09:40:09 03/24/2010 11:53:24 [id number] Marielos Mishraa [facility] [place] [address] [place] [address] 04/06/2011 11:21:22 04/06/2011 11:43:56 [id number] [facility] [place] [address] [place] [address] 11/28/2011 09:04:21 11/28/2011 09:52:25 [id number] Marielos Parker [facility] [place] [address] [place] [address] 05/28/2013 10:40:46 05/28/2013 12:50:11 [id number] Estefanía Greer [facility] [address] [place] [address] 09/02/2013 11:42:32 09/02/2013 17:13:34 Essential hypertension 97641477 Home BPs very well controlled Continue current HCTZ Screening labs f/u in 6 months or sooner if BP >140/90 Persistent insomnia 774973939 Discussed zolpidem use Patient not willing/ab le to wean off States that she sleeps well using zolpidem frequently (but not every night) Continue current dose Edema 220921049 Non-pit tin g edema Concern for thyroid disease Screen for this today Hyperlipidemia 21171923 Not tolerating statins On red yeast rice, doing well Check FLP [id number] Estefanía PRAJAPATIXKATHARINA [address] [place] [address] 08/05/2014 10:48:06 08/05/2014 11:30:08 Benign essential hypertension 3547475 Needs screening labs SBP elevated, DBP low Continue current meds f/u 6 months Mixed hyperlipidemia 886782770 Needs FLP Continue red yeast rice for now Insomnia 331936353 Patie nt dependent on zolpidem Counseled on risks of zolpidem Continue for now [id number] SATXJENNIFER [address] [place] [address] 01/24/2015 13:56:04 01/24/2015 15:01:09 Insomnia 790851838 discussed use of zolpidem and recommedat ion to wean. patient understand s and cannot sleep without it. she states she does not use it every night, some nights she is able to go to sleep unaided and she will continue to try to wean. Benign ess ential hypertension 9310033 patient states when she heard she was to have blood drawn today she became very nervous and bp went up. she checks her own pressure daily and states 125-140/65 -75 daily. Low salt diet and weight loss are discussed. patient hand out given. continue current medication Mixed hyperlipidemia 939444174 patient has never been able to complete a blood draw although several attempts have been made. We will attempt again and if she cannot complete it she will have it done with her oncologist in a week. patient hand out given recommendi karla diet and exercise. [id number] MD XIOMARA Pleitez [address] [place] [address] 07/27/2015 14:08:28 07/27/2015 15:16:47 Benign essential hypertension 2645643 Well controlled Continue current meds Screening labs at next ov f/u 6 months Mixed hyperlipidemia 233023325 Doing well on red yeast rice f/u 6 months, FLP at next visit Persistent insomnia 618260396 Patient with occasional use of zolpidem Ok to continue [id number] XIOMARA OLSON [address] [place] [address] 02/10/2015 10:36:47 02/10/2015 12:14:04 Body mass index 30+ - obesity 517271812 Essential hypertension 49782409 discussed possibilit y of HCTZ contributi ng to hypokalemi a and described signs and symptoms of low potassium to seek eval for if experience d. patient will take more potassium rich foods. Hyperlipidemia 52152084 discussed breakdown of lipid panel and diet choices. [id number] MD XIOMARA Pleitez [address] [place] [address] 01/25/2016 10:36:41 01/25/2016 11:33:33 Benign essential hypertension 4979714 I10 Continue current meds Screening labs Mixed hyperlipidemia 267 125556 E78.2 Continue red yeast rice Check FLP Persistent insomnia 1919 51114 G47.09 Patient continues to be dependent on zolpidem, unable to wean No adverse affects MD XIOMARA Pleitez [address] [place] [address] 05/28/2016 11:38:07 05/28/2016 12:10:34 Benign essential hypertension 8054035 I10 Doing well Screening labs Continue current meds Hyperlipidemia 45237102 E78.5 Patient will only tolerate red yeast rice Check FLP and LFTs Persistent insomnia 1919 41434 G47.09 Unable to wean zolpidem at this time [id number] MD XIOMARA Pleitez [place] [address] [place] [address] 01/21/2017 11:19:33 01/21/2017 11:51:14 Benign essential hypertension 0334752 I10 Mixed hyperlipidemia 267 280434 E78.2 Persistent insomnia 191 05444 G47.09 Unable to wean zolpidem at this time Primary ma lignant neoplasm of upper inner quadrant of female breast 66933939 C50.211 Screening mammography 24 022437 Z12.31 [id number] LIYAH MosesKATHARINA CRENSHAW [place] [address] [place] [address] 07/31/2017 10:22:37 07/31/2017 12:18:16 Screening for osteoporosis 449175090 Z13.820 Advance di rective discussed with patient 756959049 Z71.89 Adult heal th examination 418774097 Z00.00 The patient is here for an AMW exam. Health risk assessment performed. No major concerns on history or PE at this time. Screening guidelines reviewed in light of risk assessment and personaliz ed prevention plan was reviewed with the patient. Screening for malignant neoplasm of colon 869970085 Z12.11 up to date per GI no longer needs any colonoscop y due to age [id number] Francesca Armas NP [facility] [place] [address], [address] [place] [address] 05/22/2018 10:09:34 05/22/2018 12:13:58 Benign essential hypertension 0545198 I10 The DASH eatingplan includes whole grains, poultry, fish, and nuts, and has low amounts of fats, red meats, sweets, and sugared beverages. It is also high in potassium, calcium, and magnesium, as well as protein and fiber. Eating foods lower in salt and sodium also can reducebloo d pressure. refill given will see her back in 6 months Persistent insomnia 1919 86708 G47.09 she did not use her last RX brought back- too expensive Advance care planning 71 1507019 Z71.89 per pt she has advanced directive will bring to next visit Screening mammography 24 817672 Z12.31 ordered mammogram Hyperlipidemia 33733192 E78.5 pending lab work Diabetes marci nevarezitus screening 885160078 Z13.1 patient requesting to have diabetes work up Bilateral knee pain 1187 427925 6857087 M25.562 will have ortho evaluate [id number] LIYAH Moses[address] [place], [address] [address] 11/28/2018 13:21:27 11/28/2018 14:34:39 Benign essential hypertension 3231059 I10 refill given will see her back in 6 months she declined lipid testing today Persistent insomnia 1919 23291 G47.09 to use only as needed Hepatitis C screening 41 9607194 Z11.59 rani benita today Bilateral knee pain 1187 318941 9744965 M25.562 follow up as needed [id number] LIYAH Moses[address] [place], [address] [address] 06/25/2019 14:58:51 06/25/2019 16:36:56 Adult health examination 377839077 Z00.00 The patient is here for an AMW exam. Health risk assessment performed. No major concerns on history or PE at this time. Screening guidelines reviewed in light of risk assessment and personaliz ed prevention plan was reviewed with the patient. Screening mammography 24 818030 Z12.31 ordered mammogram Screening for osteoporosis 201115419 Z13.820 ordered Active or passive immunization 553947193 Z23 will sendin orders Advance di rective discussed with patient 225634034 Z71.89 directions and forms given to patient at time of visit [id number] LIYAH Moses[address] [place], [address] [address] 12/08/2019 13:55:32 12/08/2019 15:07:12 Body mass index 30+ - obesity 473772667 Z68.32 Persistent insomnia 1919 64505 G47.09 to use only as needed Sleep hygeine reinforced denies snoring no daytime naps Benign ess ential hypertension 3839375 I10 Limit sodium Stay on diet Remain as active as tolerated Follow up in 6 months Hyperlipidemia 48818138 E78.5 Continue with diet Remain active with water aerobics Osteoarthr itis of knee 311120158 M17.9 Stay up to date with ortho Remain as active as tolerated [id number] Francesca Armas NP [facility]Med irst - [address] [address] 03/31/2020 16:09:22 03/31/2020 16:31:43 Insomnia 505498784 G47.00 [id number] Francesca Armas NP [facility]MedF [address] [address] 05/06/2020 11:39:39 05/06/2020 12:21:04 Otitis externa 1223396 H60.91 - use swimmers ear after swimming , place 2 drops - avoid submerging head in the pool for 6 days -follow up if symptoms do not improve in the next 6 days or sooner if they worsen -pt agrees with plan of care [id number] Francesca Armas NP [facility]Med [address] [address] 07/07/2020 14:21:42 07/07/2020 15:53:13 Adult health examination 785118809 Z00.00 - will call her with results and recommenda suzi Body mass index 30+ - obesity 531560665 Z68.32 Active or passive immunization 472526965 Z23 -she will go to her pharmacy for her immunizati ons but at this time is not sure if she will get her shingles immunizati on , she understand s the need but is not sure if she wants to have the immunizati on. All questions answered Screening mammography 24 959268 Z12.31 -ordered, will await results and call with with the results [id number] Francesca Armas NP [facility] - [place] [address], [facility] [address] [place] [address] 02/17/2021 11:15:17 02/17/2021 12:16:06 Insomnia 989277364 G47.00 low risk for falls - did reinforce precaution 's for daily use of her ambien - keep night lights on and tape down all loose rugs - will refill LIFE SCIENCES DIRECTOR aware reviewed and no red flags - follow up in 6 months Body mass index 30+ - obesity 082481693 Z68.32 Benign ess ential hypertension 5249727 I10 - to come in ad have her lab work done in the next month -continue with water aerobics and stay active - follow low sodium diet - follow up in 6 months Hyperlipidemia 40902957 E78.5 Health Concerns Section Related Observation LastModified by Organization Detai ls LastModified Time None Recorded Concern Status LastModified by Organization Details LastModified Time None Recorded Advance Directives Directive Y: per pt she has advanced d irective will bring to next visit Payers Encounter Date Sequence Insurance Name Policy Number Policy David Covered Member ID David Member ID Guarantor Name 12/08/2019 1 [employer] (MEDICARE REPLACEMENT/A DVANTAGE - PPO) [id number] Fela A Bohnak [id number] Fela A Bohnak 03/31/2020 1 [employer] (MEDICARE REPLACEMENT/A DVANTAGE - PPO) [id number] Fela A Bohnak [id number] Fela A Bohnak 05/06/2020 1 [employer] (MEDICARE REPLACEMENT/A DVANTAGE - PPO) [id number] Fela A Bohnak [id number] Fela A Bohnak 07/07/2020 1 [employer] (MEDICARE REPLACEMENT/A DVANTAGE - PPO) [id number] Fela A Bohnak [id number] Fela A Bohnak 02/17/2021 1 [facility] (MEDICARE REPLACEMENT/A DVANTAGE - PPO) [id number] Fela A Bohnak [id number] Fela A Joaquink Notes Date Note Type Note Provider Name and Address Organization Details Recorded Time 12/08/19 20 text/htm l Hypertension F/UReported bypatient.Associated Symptoms:no dizziness; no lightheadedness; no chest pain; no shortness of breath; no palpitations; no edema; no calf pain with exertion Lifestyle:regular exercise; limiting/avoiding salt Medications:taking medications as directed; no side effects from medicationOsteoarthritis MonitoringReported bypatient.Associated Symptoms:no fever; no tooth problems; no mouth sores or pain; no pain with respiration; no cough; no shortness of breath; no GI symptoms; no symptoms Functional status: Activities of Daily Livingable to walk; driving not impaired;difficulty walking unassisted Insomnia : did improve with ambien - is not using daily-and is following instructions to use only as needed. She remains active and is active with water aerobics OA knees - she is up todate with her ortho but wishes no surgery at this time - pain free when not active - she is currently not on medication and does not wish any medications Francesca Armas NP [address], [place], [address], [facility] 12/08/2019 15:03:33 03/31/20 20 text/htm l Hypertension F/UReported bypatient.Associated Symptoms:no dizziness; no lightheadedness; no chest pain; no shortness of breath; no palpitations; no edema; no calf pain with exertion Lifestyle:regular exercise; limiting/avoiding salt Medications:taking medications as directed; no side effects from medicationInsomniaReported bypatient.Severity:improving Associated Symptoms:no anxiety; no snoring; no depression; no known sleep apnea; no pain; no dyspnea; no urinary frequency; legs do not feel restless Insomnia : Francesca Armas NP [address], [place], [address], [facility] 03/31/2020 16:30:16 05/06/20 20 text/htm l Virtual visit due to COVID 19 pandemic Patient Consent was obtained from the patient or the guardian if patient is a minor prior to the visit. Patient was given the opportunities to ask questions prior to the visit. Patient reports no fever ,chills,headaches,body aches,N/V, no know exposure to COVID 19 Fela presents with right ear pain that started 4 days ago She has been staying active by swimming , no ear pain , no redness, no fever Francesca Armas NP [address] [facility],[address], [place], [address], [facility] 05/06/2020 12:03:27 07/07/20 20 text/htm l Medicare AWV/IPPEReported bypatient.Hearing:no limitations Vision:no limitations Speech:normal Mobility:no limitations Transferring:no limitations Toileting:no limitations Bathing:no limitations Eating:no limitations Dressing:no limitations Activitiesexercises on a regular basis; recent increase in physical activity; good physical condition Medication Management:no limitations Shopping:no limitations Housework:no assistance required Financial:no limitations Home Safety:reviewed and discussed shower safety; benefit of guard rails; minimizing clutter; seat belt use; driving precautions; transition zones between hard floors and carpet; regular routine exercise recommended to improve ADL/IDL and reduce fall risk Legal documents on file for Advance DirectivePatient does have an advance directive in the chart. Patient was instructed to bring a copy of their advance directive to the office. Patient did receive Advance Directive counseling and information. Francesca Armas NP [address] [facility],[address] [facility], [place], [address], [facility] 07/07/2020 16:26:30 02/18/20 21 text/htm l Virtual visit due to COVID 19 pandemic Patient Consent was obtained from the patient or the guardian if patient is a minor prior to the visit. Patient was given the opportunities to ask questions prior to the visit. Patient reports no fever ,chills,headaches,body aches,N/V, no know exposure to COVID 19 Insomnia : she is requesting a refill , does use daily but takes a half a dose then HTN: doing well and has been stable as per Regulatory Law Specialist 120/70 s Francesca Armas NP [address] [facility],[place] [address], [place], [address], [facility] 02/17/2021 12:14:55 OBGyn Episode No OBEpisode recorded.
--- OUTSIDE RECORDS SUMMARY | 2025-02-18 11:26 | XMS_ITS | Continuity of Care Document ---
Author Organization [facility] Address [address] [place] [address] Phone Care Team Providers Care Bellman Name Role Phone Bernadette Rodarte Unavailable Unavailab [...] Date Provider Providers Copied on Encounter Dermatology [facility], [address] [place] [address], [place], [place], [id number], [place] tel: [phone] [facility] Location Ot benign neoplasm skin/ left upper limb, inc shoulder 3 Delio Fleming. [address] , [place], [place], [id number] , [place]. tel: [phone] OFFICE/OUTPAT IENT VISIT, EST Dermatology [facility], [address] [place] [address], [place], [place], [id number], [place] tel: [phone] [facility] Location lesion(s) (chief complaint) Encounter for screening for cancer of skinInflamed seborrheic keratosisLentigoM elanocytic nevi of trunkActinic keratosisNeoplasm of uncertain behavior of skin 3 [place] Bernadette. [address] [facility], [place], [place], [id number] , [place]. tel: [phone] OFFICE/OUTPAT IENT VISIT, EST Dermatology [facility], [address] [place] [address], [place], [place], [id number], [place] tel:[phone] [facility] lesion(s) (chief complaint) Other dyschromiaBenign neoplasm of skin of trunk, except scrotumInflamed seborrheic keratosisBenign neoplasm of skin of upper limb, including shoulder 2 [place] [place] Bernadette. [address] [facility], [place], [place], [id number] , [place]. tel: [phone] Dermatology [facility], [address] [place] [address], [place], [place], [id number], [place] tel: [address] [place] [address] No Information 0 [facility]- [place] Bernadette. [address] [facility], [place], [place], [id number] , [place]. tel: [phone] OFFICE CONSULTATION [facility], [address] [place] [address], [id number], [place] tel:[phone] [place] [address] No Information 0 [place]- [place] Bernadette. [address] [facility], [place], [place], [id number] , [place]. tel: [phone] Referring Provider: Nichole Suggs, [address], [place], [address] . tel:[phone] Dermatology [facility], [address] [place] [address], [place], [place], [id number], [place] tel:[phone] [place] [address] No Information 0 Hari Lai. [address] [place], [place], [id number] , [place]. tel: [phone] Referring Provider: Bernadette Paredes, [address] , [place], [address] . tel:[phone] Family History Family Member Type Diagnosis Age At Onset Mother Problem (finding) Cancer, skin Brother Problem (finding) Cancer, skin Problem (finding) Payers Payer name Insurance type Covered constitution party ID Authoriza tion(s) No Information Social History [...]
== END 2025-02-18 10:31 | disposition home or self-care (01) ==
PROVIDERS: Emergency Provider Nurse Practitioner Family
DX: N30.01 Acute cystitis with hematuria (principal); I10 Essential (primary) hypertension; E78.00 Pure hypercholesterolemia, unspecified; M19.90 Unspecified osteoarthritis, unspecified site; Z96.653 Presence of artificial knee joint, bilateral; Z85.3 Personal history of malignant neoplasm of breast; Z90.11 Acquired absence of right breast and nipple
CPT/HCPCS: 81003; 87086; 87186; 99213; G0463

== ENCOUNTER 2025-10-23 09:53 | Emergency (ER) | payer MEDICARE, SELFPAY ==
--- NOTE | ~2025-10-23 | XR_ITS ---
Examination: XR chest 2V Clinical History: cough x 3 weeks Comparison: None Technique: PA and Lateral Findings: Cardiomediastinal silhouette normal size and configuration. Lungs clear. No acute bony abnormality. Right axillary clips. IMPRESSION: 1. No acute cardiopulmonary findings. Reviewed, dictated and finalized at location [facility]. ITY REP
--- OUTSIDE RECORDS SUMMARY | 2025-10-23 09:55 | XMS_ITS | Continuity of Care Document ---
Author Organization [facility]. If a dditional information is needed, contact Health Information Management at [phone] Address [address] [place] [address] Phone Care Team Providers Care Workforce Advisor Name Role Phone Unavailable Unavailable Unavailable Unavailable Unavailable Unavailable Unavailable Unavailable Unavailable Unavailable Unavailable Unavailable Mental Status Cognitive function finding 15-Dec-2021 Functional Status Functional finding 15-Dec-2021 Allergies and Adverse Reactions Codeine(Allergy) Onset: 23-Mar-2022 Reaction:RASH-UNKNOWN Medications meloxicam 7.5 MG Oral Tablet ;7.5 MILLIGRAM PO DAILY Start:24-Mar-2022 Comments:7.5 MG PO DAILY aspirin 81 MG Chewable Table t;81 MILLIGRAM PO BID Start:24-Mar-2022 Comments:81 MG PO BID traMADol hydrochloride 50 MG Oral Tablet [Ultram];50 MILLIGRAM PO Q6H PRN Start:24-Mar-2022 Comments:50 MG PO Q6H PRN As Needed for postop pain gabapentin 100 MG Oral Capsu le [Neurontin];100 MILLIGRAM PO TID Start:24-Mar-2022 Comments:100 MG PO TID 2 ML lidocaine hydrochloride 10 MG/ML Injection Quantity:1 Gena Haider C CLOTH PRINTER HELPER Start:23-Mar-2022 Status:Discontinued 30 ML ROPivacaine hydrochlor ibis 5 MG/ML Injection [Naropin] Quantity:1 Gena Haider C CLOTH PRINTER HELPER Start:23-Mar-2022 Status:Discontinued dexAMETHasone phosphate 4 MG /ML Injectable Solution Quantity:1 Gena Haider C CLOTH PRINTER HELPER Start:23-Mar-2022 Status:Discontinued ondansetron 2 MG/ML Injectab le Solution [Zofran];Provider Administration Instructions:FOR IV GIVE EACH 4 MG OVER 30 SECONDS;2-5 MINUTES PREFERRED Quantity:1 Gena Haider C CLOTH PRINTER HELPER Start:23-Mar-2022 Status:Discontinued Comments:Provider Administration Instructions:FOR IV GIVE EACH 4 MG OVER 30 SECONDS;2-5 MINUTES PREFERRED 2 ML fentaNYL 0.05 MG/ML Injection Quantity:1 Gena Delgadillo CLOTH PRINTER HELPER Start:23-Mar-2022 Status:Discontinued 20 ML propofol 10 MG/ML Injection;Provider Administration Instructions: PHYSICIAN MUST BE AT BEDSIDE during administration if patient is not intubated DO NOT FILTER CHANGE TUBING EVERY 12 HOURS Quantity:1 Gena Delgadillo CLOTH PRINTER HELPER Start:23-Mar-2022 Comments:Provider Administration Instructions: PHYSICIAN MUST BE AT BEDSIDE during administration if patient is not intubated DO NOT FILTER CHANGE TUBING EVERY 12 HOURS povidone-iodine 50 MG/ML Ophthalmic Solution [Betadine] Quantity:1 Gena Delgadillo CLOTH PRINTER HELPER Start:23-Mar-2022 Status:Discontinued ROPIVACAINE/CLONIDIN/KETOROL AC 50 ML SYRINGE Quantity:1 Gena Delgadillo CLOTH PRINTER HELPER Start:23-Mar-2022 Status:Discontinued 10 ML tranexamic acid 100 MG /ML Injection [Cyklokapron];Provider Administration Instructions:- NON-PEDIATRIC PATIENTS MAY ADMINISTER VIA B PORT OFIV PUMP- ADMINISTRATION OVER 10 MINUTES- FLUSH LINE WITH NORMAL SALINE BEFORE AND AFTERADMINISTERING DOSE Quantity:1 Gena Delgadillo CLOTH PRINTER HELPER Start:23-Mar-2022 Status:Discontinued Comments:Provider Administration Instructions:- NON-PEDIATRIC PATIENTS MAY ADMINISTER VIA B PORT OFIV PUMP- ADMINISTRATION OVER 10 MINUTES- FLUSH LINE WITH NORMAL SALINE BEFORE AND AFTERADMINISTERING DOSE ceFAZolin 1000 MG Injection;Provider Administration Instructions:FOR IV PUSHDilute 1,000 mg in 10 ml Sterile Water for Injection andgive over 3-5 minutesDilute 1,000 mg in 20 mL NS or D5W give over 6 minutesDilute 2,000 mg in 20 mL Sterile Water for Injectionand give over 6 minutes Quantity:1 Gena Delgadillo CLOTH PRINTER HELPER Start:23-Mar-2022 Status:Discontinued Comments:Provider Administration Instructions:FOR IV PUSHDilute 1,000 mg in 10 ml Sterile Water for Injection andgive over 3-5 minutesDilute 1,000 mg in 20 mL NS or D5W give over 6 minutesDilute 2,000 mg in 20 mL Sterile Water for Injectionand give over 6 minutes 10 ML EPINEPHrine 0.1 MG/ML Prefilled Syringe Quantity:1 Gena Delgadillo CLOTH PRINTER HELPER Start:23-Mar-2022 Status:Discontinued vancomycin 1000 MG Injection;Provider Administration Instructions: ACTIVATE VIAL PRIOR TO ADMINISTRATION Quantity:1 Gena Delgadillo CLOTH PRINTER HELPER Start:23-Mar-2022 Status:Discontinued Comments:Provider Administration Instructions: ACTIVATE VIAL PRIOR TO ADMINISTRATION calcium carbonate 1500 MG Or al Tablet [Caltrate];600 MILLIGRAM PO DAILY Start:13-Mar-2022 Comments:600 MG PO DAILY gabapentin 100 MG Oral Capsu le [Neurontin];100 MILLIGRAM PO TID Start:19-Dec-2021 Comments:100 MG PO TID aspirin 81 MG Chewable Table t;81 MILLIGRAM PO BID Start:19-Dec-2021 Status:Discontinued Comments:81 MG PO BID traMADol hydrochloride 50 MG Oral Tablet [Ultram];50 MILLIGRAM PO Q6H PRN Start:19-Dec-2021 Status:Discontinued Comments:50 MG PO Q6H PRN As Needed for PAIN SCALE 4-6 2 ML fentaNYL 0.05 MG/ML Injection Quantity:1 Start:18-Dec-2021 ondansetron 2 MG/ML Injectab le Solution [Zofran];Provider Administration Instructions:FOR IV GIVE EACH 4 MG OVER 30 SECONDS;2-5 MINUTES PREFERRED Quantity:1 Start:18-Dec-2021 Status:Discontinued Comments:Provider Administration Instructions:FOR IV GIVE EACH 4 MG OVER 30 SECONDS;2-5 MINUTES PREFERRED 100 ML sodium chloride 9 MG/ ML Injection;Provider Administration Instructions:ACTIVATE VIAL PRIOR TO USE Quantity:1 Start:18-Dec-2021 Comments:Provider Administration Instructions:ACTIVATE VIAL PRIOR TO USE midazolam 1 MG/ML Injectable Solution Quantity:1 Start:18-Dec-2021 Status:Discontinued dexAMETHasone phosphate 4 MG /ML Injectable Solution Quantity:1 Start:18-Dec-2021 Status:Discontinued EPHEDRINE [id number] Quantity:1 Start:18-Dec-2021 Status:Discontinued 100 ML acetaminophen 10 MG/M L Injection [Ofirmev];Provider Administration Instructions:Limit total acetaminophen dose to 4,000 mg per day;Limit total acetaminophen dose to 2,000 mg per day forpatients with hepatic dysfunction ALL SOURCES Quantity:1 Soren De La Cruz MD Start:18-Dec-2021 Status:Discontinued Comments:Provider Administration Instructions:Limit total acetaminophen dose to 4,000 mg per day;Limit total acetaminophen dose to 2,000 mg per day forpatients with hepatic dysfunction ALL SOURCES 5 ML lidocaine hydrochloride 10 MG/ML Injection [Xylocaine] Quantity:1 Soren De La Cruz MD Start:18-Dec-2021 Status:Discontinued 30 ML ROPivacaine hydrochlor ibis 5 MG/ML Injection [Naropin] Quantity:1 Soren De La Cruz MD Start:18-Dec-2021 Status:Discontinued midazolam 1 MG/ML Injectable Solution Quantity:1 Soren De La Cruz MD Start:18-Dec-2021 Status:Discontinued 20 ML propofol 10 MG/ML Injection;Provider Administration Instructions: PHYSICIAN MUST BE AT BEDSIDE during administration if patient is not intubated DO NOT FILTER CHANGE TUBING EVERY 12 HOURS Quantity:1 Soren De La Cruz MD Start:18-Dec-2021 Comments:Provider Administration Instructions: PHYSICIAN MUST BE AT BEDSIDE during administration if patient is not intubated DO NOT FILTER CHANGE TUBING EVERY 12 HOURS povidone-iodine 50 MG/ML Ophthalmic Solution [Betadine] Quantity:1 Soren De La Cruz MD Start:18-Dec-2021 Status:Discontinued ceFAZolin 1000 MG Injection;Provider Administration Instructions:FOR IV PUSHDilute 1,000 mg in 10 ml Sterile Water for Injection andgive over 3-5 minutesDilute 1,000 mg in 20 mL NS or D5W give over 6 minutesDilute 2,000 mg in 20 mL Sterile Water for Injectionand give over 6 minutes Quantity:1 Soren De La Cruz MD Start:18-Dec-2021 Status:Discontinued Comments:Provider Administration Instructions:FOR IV PUSHDilute 1,000 mg in 10 ml Sterile Water for Injection andgive over 3-5 minutesDilute 1,000 mg in 20 mL NS or D5W give over 6 minutesDilute 2,000 mg in 20 mL Sterile Water for Injectionand give over 6 minutes ROPIVACAINE/CLONIDIN/KETOROL AC 50 ML SYRINGE Quantity:1 Soren De La Cruz MD Start:18-Dec-2021 Status:Discontinued 10 ML EPINEPHrine 0.1 MG/ML Prefilled Syringe Quantity:1 Soren De La Cruz MD Start:18-Dec-2021 Status:Discontinued 10 ML tranexamic acid 100 MG /ML Injection [Cyklokapron];Provider Administration Instructions:- NON-PEDIATRIC PATIENTS MAY ADMINISTER VIA B PORT OFIV PUMP- ADMINISTRATION OVER 10 MINUTES- FLUSH LINE WITH NORMAL SALINE BEFORE AND AFTERADMINISTERING DOSE Quantity:1 Soren De La Cruz MD Start:18-Dec-2021 Status:Discontinued Comments:Provider Administration Instructions:- NON-PEDIATRIC PATIENTS MAY ADMINISTER VIA B PORT OFIV PUMP- ADMINISTRATION OVER 10 MINUTES- FLUSH LINE WITH NORMAL SALINE BEFORE AND AFTERADMINISTERING DOSE vancomycin 1000 MG Injection;Provider Administration Instructions: ACTIVATE VIAL PRIOR TO ADMINISTRATION Quantity:1 Soren De La Cruz MD Start:18-Dec-2021 Status:Discontinued Comments:Provider Administration Instructions: ACTIVATE VIAL PRIOR TO ADMINISTRATION mupirocin 0.02 MG/MG Topical Ointment;Provider Administration Instructions:FOR EXTERNAL USE ONLY Quantity:1 Soren De La Cruz MD Start:18-Dec-2021 Status:Discontinued Comments:Provider Administration Instructions:FOR EXTERNAL USE ONLY amLODIPine 2.5 MG Oral Table t [Norvasc];2.5 MILLIGRAM PO DAILY Start:15-Dec-2021 Comments:2.5 MG PO DAILY hydroCHLOROthiazide 25 MG Or al Tablet;25 MILLIGRAM PO DAILY Start:15-Dec-2021 Comments:25 MG PO DAILY cholecalciferol 0.125 MG Ora l Tablet;5000 UNIT PO DAILY Start:15-Dec-2021 Comments:5000 UNIT PO DAILY zolpidem tartrate 5 MG Oral Tablet;5 MILLIGRAM PO BEDTIME Start:15-Dec-2021 Comments:5 MG PO BEDTIME As Needed for SLLEP calcium carbonate 600 MG / cholecalciferol 125 UNT Oral Tablet;1 TABLET PO DAILY Start:15-Dec-2021 Status:Discontinued Comments:1 TAB PO DAILY magnesium oxide 500 MG Oral Capsule;500 MILLIGRAM PO DAILY Start:15-Dec-2021 Status:Discontinued Comments:500 MG PO DAILY HEALTHY EYETS;1 TABLET PO DA TANNER Start:15-Dec-2021 Status:Discontinued Comments:1 TAB PO DAILY acetaminophen 500 MG Oral Tablet;1000 MILLIGRAM PO Q6H Start:15-Dec-2021 Status:Discontinued Comments:1000 MG PO Q6H As Needed for PAIN/MISC. Social History Smoking Status Never smoked tobacco Recorded: 15-Dec-2021
--- OUTSIDE RECORDS SUMMARY | 2025-10-23 09:56 | XMS_ITS | Data Portability ---
Author Organization [facility], [facility] Address [address] [place] [address] Assessment Encounter Date Assessment Date Assessment LastModified [...] in pain-MET Previous LEFS- 54% Current LEFS-70% perry Not available 07/25/2018 16:19:31 Plan of Treatment [...] By Organization Details Last Modified Time 09/15/2018 [id number] we will continue with conservative treatment. Follow up in 2 months time to see she is progressing. [email or web address] Not available 09/15/2018 14:32:10 11/10/2018 [id number] She is planning to get stem cell injections. 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 [email or web address] Not available 11/10/2018 14:20:27 Reason for Referral None Reported. Problems No Known Problems Procedures Surgical History Date Name Laterality Status Provider Name and Address Organization Details Recorded Time 09/15/20 18 CWN - Steroid Injection completed Cesar Bonilla MD [address], [place], [address], [facility] 09/15/2018 14:31:33 07/25/20 18 [id number]: Therapeutic Exercise completed Katrin Bippert, PT [address], [place], [address], [facility] 07/25/2018 16:18:05 07/25/20 18 [id number]: Manual Therapy completed Katrin Bippert, PT [address], [place], [address], [facility] 07/25/2018 16:17:57 07/16/20 18 [id number]: Therapeutic Exercise completed Katrin Bippert, PT [address], [place], [address], [facility] 07/16/2018 14:20:40 07/16/20 18 [id number]: Manual Therapy completed Katrin Bippert, PT [address], [place], [address], [facility] 07/16/2018 14:20:06 07/09/20 18 [id number]: Therapeutic Exercise completed Katrin Polancopert, PT [address], [place], [address], [facility] 07/09/2018 14:39:42 07/09/20 18 33056: Manual Therapy completed Katrin Polancopert, PT [address], [place], [address], [facility] 07/09/2018 14:37:20 07/07/20 18 [id number]: Therapeutic Exercise completed Katrin Vieyra, PT [address], [place], [address], [facility] 07/07/2018 14:58:04 07/07/20 18 [id number]: Manual Therapy completed Katrin Polancopert, PT [address], [place], [address], [facility] 07/07/2018 16:02:00 07/03/20 18 [id number]: Therapeutic Exercise completed Katrin Vieyra, PT [address], [place], [address], [facility] 07/03/2018 13:54:37 07/03/20 18 [id number]: Manual Therapy completed Katrin Polancopert, PT [address], [place], [address], [facility] 07/03/2018 13:54:28 06/09/20 18 51846: Therapeutic Exercise completed Katrin Vieyra, PT [address], [place], [address], [facility] 06/09/2018 10:47:05 06/09/20 18 [id number]: Manual Therapy completed Katrin Vieyra, PT [address], [place], [address], [facility] 06/09/2018 10:46:46 06/05/20 18 [id number] PT Eval - Moderate completed Katrin Vieyra, PT [address], [place], [address], [facility] 06/05/2018 19:21:05 06/02/20 18 Xray, Knee, Daryn, 4+V completed Cesar Bonilla MD [address], [place], [address], [facility] 06/02/2018 14:39:32 06/02/20 18 CWN - Steroid Injection completed Cesar Bonilla MD [address], [place], [address], [facility] 06/02/2018 14:39:58 10/28/19 13 ENT completed Africa Corley [facility] 06/02/2018 15:11:15 10/28/19 10 Hysterectomy completed Africa Corley [facility] 06/02/2018 15:11:06 Imaging Results None recorded. Procedure [...] index (BMI) Body weight Heart rate Systolic And Diastolic Provider Name and Address Organization Details Last Updated DateTime 11/10/2018 147.32 cm 33.4 kg/m2 30598.78 g 70 /min 145/98 mm[Hg] Shanique Bear [facility] 11/10/2018 13:57:06 Date Recorded Heart rate Systolic And Diastolic Provider Name and Address Organization Details Last Updated DateTime 09/15/2018 71 /min 147/87 mm[Hg] Africa Corley [facility] 09/15/2018 14:09:55 Date Recorded Body height Body mass index (BMI) Body weight Provider Name and Address Organization Details Last Updated DateTime 09/15/2018 147.32 cm 33.4 kg/m2 22670.78 mateus Mercado [facility] 09/15/2018 14:00:56 Social History Question Answer Notes LastModified by Organizat ion Details LastModified Time Tobacco Smoking Status Former Smoker Africa Corley fitz, [facility] 06/02/2018 15:10:46 Do You Drink Alcohol? Never [...] N Thyroid Disease N Atrial Fibrillation N Stroke CVA N Prostate Disease N Irregular Heartbeat N Alzheimer's or Significant Memory Loss N Emphysema/COPD N Cubital tunnel release N Depression N Pneumonia N Pacemaker/Defibrillator N Coronary Heart Disease N High Blood Pressure/Hypertension N Congestive Heart Failure N Under the Care of a Executive Staff Assistant N Cystic Fibrosis N Cancer Y Stroke N Hypoglycemia N Rotator cuff injury N Polio N Bleeding Ulcers N High Cholesterol N Muscular Dystrophy N Hemophilia/Bleeding Disorder N Rheumatoid Arthritis N Fibromyalgia N Liver Failure N Kidney Disease N Hiatal Hernia N HIV N Osteoarthritis N Colitis N Adverse Reaction to Anesthesia N Acid Reflux N Downs Syndrome N Chemotherapy N MRSA Infection N Esophageal Varices N Blood Clots (phlebitis) N Anemia N Psychiatric Disorder N Home Oxygen N Carpal tunnel release N Ulcers N Bladder Problems N Stomach Ulcers N Diabetes N NO PAST MEDICAL PROBLEMS N Seizures/Epilepsy N Sickle Cell N Have you been or are you being seen by a printing press machinist? N Angina/Chest Pain/Heart Attack N Heart Attack N Dental Disease N Asthma N Epilepsy/Seizures N Sleep Apnea N Jaundice N Mitral Valve Prolapse N Hepatitis N Have you ever had an adverse reaction to anesthesia? N Cirrhosis N Heart Disease N Bronchitis N Gallbladder Problems N Osteoporosis N Gynecological HistoryNo gynecological history recorded. Obstetrics History GPAL:G 0 P 0 0 0 0 Past Encounters Encounter ID Performer Location Encounter Start Date Encounter Closed Date Diagnosis/Indication Diagnosis SNOMED-CT Code Diagnosis ICD10 Code Diagnosis IMO Codes Diagnosis Note [id number] Cesar Bonilla MD [facility] [address] [place] [address], [address] [address] 06/02/2018 13:55:19 06/02/2018 15:09:25 Osteoarthritis of knee 401211085 M17.0 [id number] Katrin Vieyra, PT [facility] [address] [place] [address], [address] [address] 06/05/2018 14:28:22 06/06/2018 08:31:47 Knee pain 01532638 M25.569 Osteoarthr itis of knee [id number] M17.0 [id number] Katrin Vieyra, PT [facility] [address] [place] [address], [address] [address] 06/09/2018 09:53:14 06/09/2018 11:06:03 Knee pain 88705953 M25.569 Osteoarthr itis of knee [id number] M17.0 [id number] Katrin Vieyra, PT [facility] [address] [place] [address], [address] [address] 07/03/2018 12:38:34 07/03/2018 14:30:51 Knee pain 57907741 M25.569 Osteoarthr itis of knee [id number] M17.0 [id number] Katrin Vieyra, PT [facility] [address] [place] [address], [address] [address] 07/07/2018 14:42:42 07/07/2018 16:19:20 Knee pain 66412851 M25.569 Osteoarthr itis of knee [id number] M17.0 [id number] Cesar Bonilla MD [facility] [address], [address] [place] [address] 07/07/2018 15:59:12 07/07/2018 16:20:56 Osteoarthritis of knee 596090910 M17.0 [id number] Katrin Vieyra, PT [facility] [address], [address] [place] [address] 07/09/2018 12:45:41 07/09/2018 16:15:03 Knee pain 71078871 M25.569 Osteoarthr itis of knee 144811071 M17.0 [id number] Katrin Vieyra, PT [facility] [address] [place] [address], [address] [address] 07/16/2018 12:40:40 07/16/2018 14:35:57 Knee pain 56696787 M25.569 Osteoarthr itis of knee 058754340 M17.0 [id number] Ktarin Vieyra, PT [facility] [address], [address] [address] 07/25/2018 14:37:53 07/25/2018 16:27:00 Knee pain 15529972 M25.569 Osteoarthr itis of knee 675092104 M17.0 [id number] Cesar Bonilla MD [facility] [address] [place] [address], [address] [address] 09/15/2018 13:52:17 09/15/2018 14:32:58 Osteoarthritis of knee [id number] M17.0 [id number] Cesar Bonilla MD [facility] [address] [place] [address], [address] [address] 11/10/2018 13:47:13 11/10/2018 14:11:49 Osteoarthritis of knee 065497859 M17.0 Health Concerns Section Related Observation LastModified by Organization Detai ls LastModified Time None Recorded Concern Status LastModified by Organization Details LastModified Time None Recorded Advance Directives Directive None Recorded Payers Insurance Date Sequence Insurance Name Policy Number Policy David Covered Member ID David Member ID Guarantor Name 11/07/2018 1 [employer] (MEDICARE REPLACEMENT/A DVANTAGE - PPO) Fela Malik [id number] Fela Nuñezdamari 05/27/2018 1 AETELVER Malik [id number] Fela Malik Notes Date Note Type Note Provider Name and Address Organization Details Recorded Time 07/09/2018 text/html Pt reports that her knees have been feeling tight and more tired possibly from the weather. Katrin Vieyra, PT [address], [place], [address], [facility] 07/09/2018 14:39:56 07/16/2018 text/html Pt continues to notice increased difficulty c descending stairs. Katrin Vieyra, PT [address], [place], [address], [facility] 07/16/2018 14:22:52 07/25/2018 text/html Pt reports that her knees felt great yesterday morning. Pt went shopping for four hours and noticed increase in knee pain last night. Katrin Vieyra, PT [address], [place], [address], [facility] 07/25/2018 16:20:17 09/15/2018 text/html she returns for follow-up of her bilateral knees. She would like to go forward with injections. She rates the pain at 5 out of 10 in both knees. Pain is made worse with weightbearing and better with rest. Cesar Bonilla MD [address], [place], [address], [facility] 09/15/2018 14:32:13 11/10/2018 text/html She returns for follow-up of her bilateral knees. Her pain is a little bit better after the injections we previously gave her. She rates her pain a 1 out of 10 in both knees. She denies any new numbness or tingling. She is looking into getting stem cell injections performed. Cesar Bonilla MD [address], [place], [address], [place] [facility] 11/10/2018 14:20:30 OBGyn Episode No OBEpisode recorded.
--- OUTSIDE RECORDS SUMMARY | 2025-10-23 09:56 | XMS_ITS | Data Portability ---
Author Organization [facility] [place] [place] Address [address] [place] [address] Care Team Providers Care Financial Coordinator Name Role Phone FRANCESCA ARMAS Referring Provider [...] recorded . Lab lipid panel, serum 2020 [facility], Visit [email or web address], Patient Resources For List Of Lab Collection Sites, 37225, 1 22:55:49 CMP, serum or plasma 2020 [facility], Visit [email or web address], Patient Resources For List Of Lab Collection Sites, 25778, 1 22:55:49 TSH, serum, reflex free T4 2020 [facility], Visit [email or web address], Patient Resources For List Of Lab Collection Sites, 31495, 1 22:55:49 CBC w/ auto diff 2020 [facility], Visit [email or web address], Patient Resources For List Of Lab Collection Sites, 62902, 1 22:55:48 lipid panel, serum 2019 020 [facility], [address] [place] [address], [address], 0 10:57:21 CBC w/ auto diff 2019 020 [facility], [address] [place], [address], 0 10:57:21 CMP, serum or plasma 2019 020 WAYNE [facility], [address] [place], [address], 0 16:32:31 TSH, serum or plasma 2019 020 [email or web address] [facility], [address] [facility], [place], [address], 0 10:57:21 urinalys is, dipstick , auto 2019 [facility] In-House Results, For Internal Use Only, Do Not Delete/merge, [address]395 0 16:02:43 Referral None recorded . Procedures None recorded . Surgeries None recorded . Imaging MAMMO, screenin g, digital, bilatera l, w/ CAD [address], [address], [address], [place], [address], 0 12:57:01 Medication Orders zolpidem 10 mg tablet 2020 021 [facility], [address] [place], [place], [id number], 1 12:10:04 hydrocor tisone-a cetic acid 1 %-2 % ear drops [address], [facility], [place], [address], 0 14:45:58 zolpidem 10 mg tablet 2019 020 INTERFACE [facility], [facility], [place], [address], 0 16:17:47 zolpidem 10 mg tablet 2019 020 INTERFACE [facility], [address] [place], [place], [id number], 0 14:46:15 aspirin 81 mg tablet,d elayed release 2019 020 INTERFACE Pharmacy, [facility], [place], [address], 0 14:46:14 Patient TargetsNo targets recorded. Patient Instructions Encounter Date Encounter Id Patient Instructions Last Modified By Organization Details Last Modified Time 12/08/2019 [id number] handicap chele* Not availab le 12/17/2019 10:57:29 low sodium diet (2,000 milligram): care instructions Not available 12/08/2019 14:46:11 eating healthy foods: care instructions Not available 12/08/2019 14:46:11 03/31/2020 [id number] insomnia: care instructions Not available 03/31/2020 16:23:41 07/07/2020 [id number] advance care planning: care instructions Not available 07/07/2020 15:37:12 A healthy lifestyle: care instructions Not available 07/07/2020 15:37:12 preventing falls : care instructions Not available 07/07/2020 15:37:12 eating healthy foods: care instructions Not available 07/07/2020 15:37:12 COUNSELING & COORDINATION of CARE Yes: Increase Exercise Yes: Encourage Weight Loss Yes: Decrease Fat Yes: Diabetic Patient Counseling N/A: Smoking Cessation N/A: Decrease Alcohol Yes: Decrease Salt Yes: Increase Fiber Yes: Increase H20 Yes: Counseled patient regarding Lab/Dx/need for follow-up Yes: Discussed medications, side effects, & compliance Yes: Dental Care Yes: Eye Exam Not available 07/07/2020 16:25:52 Reason for Referral None Reported. Results Created Date Observation Date Name Description Value Unit Range Abnormal Flag Note LastModifiedBy Organization Detail LastModifiedTime 12/08/19 20 12/08/2019 CBC w/ auto diff WBC 6.27 K/uL 4.40-1 0.80 Not Available [facility] [address] Visit [email or web address] Patient Resources For List Of Lab Collection Sites, 31138, 12/09/2019 16:32:30 12/08/1912/08/2019 CBC w/ auto diff RBC 4.29 M/uL 4.02-5 .18 Not Available [facility] - [address] Visit [email or web address] Patient Resources For List Of Lab Collection Sites, 90566, 12/09/2019 16:32:30 12/08/19 20 12/08/2019 CBC w/ auto diff HGB 13.2 g/dL 11.5-1 5.5 Not Available [facility] - [facility] [address] Visit [email or web address] Patient Resources For List Of Lab Collection Sites, 85494, 12/09/2019 16:32:30 12/08/19 20 12/08/2019 CBC w/ auto diff HCT 39.6 % 34.5-4 6.5 Not Available [facility] - [facility] [address] Visit [email or web address] Patient Resources For List Of Lab Collection Sites, 55217, 12/09/2019 16:32:30 12/08/19 20 12/08/2019 CBC w/ auto diff MCV 92.3 fL 80.0-9 7.0 Not Available [facility] - [facility] [address] Visit [email or web address] Patient Resources For List Of Lab Collection Sites, [id number], 12/09/2019 16:32:30 12/08/19 20 12/08/2019 CBC w/ auto diff MCH 30.8 pg 25.8-3 2.9 Not Available [facility] - [facility] [address] Visit [email or web address] Patient Resources For List Of Lab Collection Sites, 94844, 12/09/2019 16:32:30 12/08/1912/08/2019 CBC w/ auto diff MCHC 33.3 g/dL 31.0-3 5.0 Not Available [facility] - [facility] [address] Visit [email or web address] Patient Resources For List Of Lab Collection Sites, 50972, 12/09/2019 16:32:30 12/08/19 20 12/08/2019 CBC w/ auto diff RDW 12.9 % 11.1-1 5.1 Not Available [facility] - [address] [facility] Patient Resources For List Of Lab Collection Sites, 01737, 12/09/2019 16:32:30 12/08/19 20 12/08/2019 CBC w/ auto diff plt 256 K/uL 140-40 0 Not Available [facility] - [address] Visit [email or web address] Patient Resources For List Of Lab Collection Sites, 60406, 12/09/2019 16:32:30 12/08/19 20 12/08/2019 CBC w/ auto diff MPV 10.30 fL 7.50-1 4.00 Not Available [facility] - [address] Visit [email or web address] Patient Resources For List Of Lab Collection Sites, 22084, 12/09/2019 16:32:30 12/08/19 20 12/08/2019 CBC w/ auto diff neut% 57.6 % 38.8-7 6.4 Not Available [facility] - [address] Visit [email or web address] Patient Resources For List Of Lab Collection Sites, 44990, 12/09/2019 16:32:30 12/08/19 20 12/08/2019 CBC w/ auto diff lymph% 34.6 % 17.8-4 6.6 Not Available [facility] - [address] Visit [email or web address] Patient Resources For List Of Lab Collection Sites, 37700, 12/09/2019 16:32:30 12/08/19 20 12/08/2019 CBC w/ auto diff mono% 5.1 % 3.0-11 .0 Not Available [facility] - [address] Visit [email or web address] Patient Resources For List Of Lab Collection Sites, 58814, 12/09/2019 16:32:30 12/08/19 20 12/08/2019 CBC w/ auto diff eos% 1.90 % 0.00-6 .00 Not Available [facility] - [facility] [address] [facility] Patient Resources For List Of Lab Collection Sites, 37775, 12/09/2019 16:32:30 12/08/19 20 12/08/2019 CBC w/ auto diff baso% 0.5 % 0.0-2. 0 Not Available [facility] - [facility] [address] Visit [email or web address] Patient Resources For List Of Lab Collection Sites, 43956, 12/09/2019 16:32:30 12/08/19 20 12/08/2019 CBC w/ auto diff Ig% 0.30 % 0.00-3 .00 Not Available [facility] - [facility] [address] Visit [email or web address] Patient Resources For List Of Lab Collection Sites, 76875, 12/09/2019 16:32:30 12/08/19 20 12/08/2019 CBC w/ auto diff NRBC% 0.00 % 0.00-0 .00 Not Available [facility] - [facility] [address] Visit [email or web address] Patient Resources For List Of Lab Collection Sites, 73676, 12/09/2019 16:32:30 12/08/19 20 12/08/2019 CBC w/ auto diff neut# 3.61 K/uL 1.90-7 .90 Not Available [facility] - [facility] [address] Visit [email or web address] Patient Resources For List Of Lab Collection Sites, [id number], 12/09/2019 16:32:30 12/08/19 20 12/08/2019 CBC w/ auto diff lymph# 2.17 K/uL 0.95-4 .90 Not Available [facility] - [facility] [address] Visit [email or web address] Patient Resources For List Of Lab Collection Sites, [id number], 12/09/2019 16:32:30 12/08/19 20 12/08/2019 CBC w/ auto diff mono# 0.32 K/uL 0.14-1 .20 Not Available [facility] - [facility] [address] Visit [email or web address] Patient Resources For List Of Lab Collection Sites, [id number], 12/09/2019 16:32:30 12/08/19 20 12/08/2019 CBC w/ auto diff eos# 0.12 K/uL 0.00-0 .70 Not Available [facility] - [facility] [address] Visit [facility] Patient Resources For List Of Lab Collection Sites, 74778, 12/09/2019 16:32:30 12/08/19 20 12/08/2019 CBC w/ auto diff baso# 0.03 K/uL 0.00-0 .20 Not Available [facility] - [facility] [address] Visit [email or web address] Patient Resources For List Of Lab Collection Sites, 50704, 12/09/2019 16:32:30 12/08/19 20 12/08/2019 CBC w/ auto diff Ig# 0.02 K/uL 0.00-0 .30 Not Available [facility] Visit [email or web address] Patient Resources For List Of Lab Collection Sites, 22764, 12/09/2019 16:32:30 12/08/19 20 12/08/2019 CMP, serum or plasm a glu 87 mg/dL 70-100 Not Available [facility] Visit [email or web address] Patient Resources For List Of Lab Collection Sites, 59131, 12/09/2019 16:32:31 12/08/19 20 12/08/2019 CMP, serum or plasm a BUN 15 mg/dL 7-25 Not Available [facility] Visit [email or web address] Patient Resources For List Of Lab Collection Sites, 69463, 12/09/2019 16:32:31 12/08/19 20 12/08/2019 CMP, serum or plasm a crea 0.71 mg/dL 0.50-1 .10 For patie nts >49 years of age, the refer ence limit for Creat inine is appro ximat mauricio 13% highe r for peopl e ident ified as Afric an-Am slick n. Not Available [facility] - [facility] [address] Visit [email or web address] Patient Resources For List Of Lab Collection Sites, 31017, 12/09/2019 16:32:31 12/08/19 20 12/08/2019 CMP, serum or plasm a GFR 80.39 Refer ence Range for eGFR is >=60 ml/mi n/1.7 3m^2 Not Available [facility] - [facility] [address] Visit [email or web address] Patient Resources For List Of Lab Collection Sites, 32436, 12/09/2019 16:32:31 12/08/19 20 12/08/2019 CMP, serum or plasm a GFR afric 97.44 Refer ence Range for eGFR is >=60 ml/mi n/1.7 3m^2 Not Available [facility] - [facility] [address] Visit [email or web address] Patient Resources For List Of Lab Collection Sites, 03362, 12/09/2019 16:32:31 12/08/19 20 12/08/2019 CMP, serum or plasm a BUN/crea 21 ratio 10-20 high Not Available [facility] - [facility] [address] Visit [email or web address] Patient Resources For List Of Lab Collection Sites, 56371, 12/09/2019 16:32:31 12/08/19 20 12/08/2019 CMP, serum or plasm a Na 138 mmol/ L 137-14 5 Not Available [facility] - [facility] [address] Visit [email or web address] Patient Resources For List Of Lab Collection Sites, 66600, 12/09/2019 16:32:31 12/08/19 20 12/08/2019 CMP, serum or plasm a K 4.3 mmol/ L 3.5-5. 3 Not Available [facility] - [facility] [address] Visit [email or web address] Patient Resources For List Of Lab Collection Sites, 92922, 12/09/2019 16:32:31 12/08/19 20 12/08/2019 CMP, serum or plasm a cL 96 mmol/ L 98-110 low Not Available [facility] Visit [email or web address] Patient Resources For List Of Lab Collection Sites, 65054, 12/09/2019 16:32:31 12/08/19 20 12/08/2019 CMP, serum or plasm a CO2 29 mmol/ L 22-30 Not Available [facility] - [facility] [address] Visit [email or web address] Patient Resources For List Of Lab Collection Sites, 74109, 12/09/2019 16:32:31 12/08/19 20 12/08/2019 CMP, serum or plasm a Ca 10.0 mg/dL 8.6-10 .3 Not Available [facility] Visit [email or web address] Patient Resources For List Of Lab Collection Sites, 28040, 12/09/2019 16:32:31 12/08/1912/08/2019 CMP, serum or plasm a TP 7.5 g/dL 6.3-8. 2 Not Available [facility] - [facility] Visit [email or web address] Patient Resources For List Of Lab Collection Sites, 94352, 12/09/2019 16:32:31 12/08/19 20 12/08/2019 CMP, serum or plasm a alb 4.5 g/dL 3.5-5. 0 Not Available [facility] - [address] [facility] Patient Resources For List Of Lab Collection Sites, 55748, 12/09/2019 16:32:31 12/08/19 20 12/08/2019 CMP, serum or plasm a glob 3.0 g/dL 1.9-3. 7 Not Available [facility] - [address] Visit [email or web address] Patient Resources For List Of Lab Collection Sites, 59779, 12/09/2019 16:32:31 12/08/19 20 12/08/2019 CMP, serum or plasm a A/G 1.5 ratio 1.0-2. 5 Not Available [facility] - [facility] [address] Visit [email or web address] Patient Resources For List Of Lab Collection Sites, 61139, 12/09/2019 16:32:31 12/08/19 20 12/08/2019 CMP, serum or plasm a tbil 0.6 mg/dL 0.2-1. 3 Not Available [facility] - [address] [facility] Patient Resources For List Of Lab Collection Sites, 94407, 12/09/2019 16:32:31 12/08/19 20 12/08/2019 CMP, serum or plasm a ALKP 86 U/L 38-120 Not Available [facility] - [facility] [address] Visit [email or web address] Patient Resources For List Of Lab Collection Sites, 09157, 12/09/2019 16:32:31 12/08/19 20 12/08/2019 CMP, serum or plasm a AST 22 U/L 14-36 Not Available [facility] - [facility] [address] Visit [email or web address] Patient Resources For List Of Lab Collection Sites, 35657, 12/09/2019 16:32:31 12/08/19 20 12/08/2019 CMP, serum or plasm a ALT 19 U/L <35 Not Available [facility] - [address] Visit [email or web address] Patient Resources For List Of Lab Collection Sites, 18576, 12/09/2019 16:32:31 12/08/19 20 12/08/2019 TSH, serum , refle x free T4 TSH 2.47 mIU/L 0.40-4 .50 Not Available [facility] - [address] Visit [email or web address] Patient Resources For List Of Lab Collection Sites, 05860, 12/09/2019 16:32:32 12/08/19 20 12/08/2019 lipid panel , blood chol 236 mg/dL 125-20 0 high Not Available [facility] - [address] Visit [email or web address] Patient Resources For List Of Lab Collection Sites, 56161, 12/09/2019 16:32:32 12/08/19 20 12/08/2019 lipid panel , blood HDL 72.0 mg/dL 40.0-6 0.0 high Not Available [facility] - [address] Visit [email or web address] Patient Resources For List Of Lab Collection Sites, 89469, 12/09/2019 16:32:32 12/08/19 20 12/08/2019 lipid panel , blood trig 117 mg/dL <150 Not Available [facility] - [address] Visit [email or web address] Patient Resources For List Of Lab Collection Sites, 66311, 12/09/2019 16:32:32 12/08/19 20 12/08/2019 lipid panel , blood LDLC 141 mg/dL <130 high Kranthi able range : <100 mg/dL for patie nts with CHD or diabe trino. Kranthi able range : <70 mg/dL for diabe tic patie nts with known heart disea se. Not Available [facility] - [address] Visit [email or web address] Patient Resources For List Of Lab Collection Sites, 42346, 12/09/2019 16:32:32 12/08/19 20 12/08/2019 lipid panel , blood chol/HDL 3 ratio <5 Refer ence value is relat ed to risk level s as recom manolo d by the [facility]. Not Available [facility] - [address] Visit [email or web address] Patient Resources For List Of Lab Collection Sites, 19379, 12/09/2019 16:32:32 12/08/19 20 12/08/2019 lipid panel , blood VLDL 23 mg/dL 5-40 Typic ally, high level s of VLDL corre spond s to a high level of trigl yceri judy in the blood . There fore, calcu lated VLDL is based on trigl yceri de value . Not Available [facility] - [address] Visit [facility] Patient Resources For List Of Lab Collection Sites, 09481, 12/09/2019 16:32:32 12/08/19 20 12/08/2019 urina lysis [...] Use Only, Do Not Delete/merge, 12/08/2019 14:44:26 03/22/2003/22/2021 CBC w/ auto diff WBC 4.87 K/uL 4.40-1 0.80 Not Available [facility] - [address] [facility] Patient Resources For List Of Lab Collection Sites, 97718, 03/22/2021 22:55:48 03/22/20 21 03/22/2021 CBC w/ auto diff RBC 4.24 M/uL 4.02-5 .18 Not Available [facility] - [address] Visit [email or web address] Patient Resources For List Of Lab Collection Sites, 89767, 03/22/2021 22:55:48 03/22/20 21 03/22/2021 CBC w/ auto diff HGB 13.1 g/dL 11.5-1 5.5 Not Available [facility] - [address] Visit [email or web address] Patient Resources For List Of Lab Collection Sites, 50514, 03/22/2021 22:55:48 03/22/20 21 03/22/2021 CBC w/ auto diff HCT 40 % 35-47 Not Available [facility] - [address] Visit [email or web address] Patient Resources For List Of Lab Collection Sites, 59585, 03/22/2021 22:55:48 03/22/20 21 03/22/2021 CBC w/ auto diff MCV 93.9 fL 80.0-9 7.0 Not Available [facility] [address] Visit [email or web address] Patient Resources For List Of Lab Collection Sites, 65637, 03/22/2021 22:55:48 03/22/20 21 03/22/2021 CBC w/ auto diff MCH 30.9 pg 25.8-3 2.9 Not Available [facility] - [address] Visit [email or web address] Patient Resources For List Of Lab Collection Sites, 91528, 03/22/2021 22:55:48 03/22/20 21 03/22/2021 CBC w/ auto diff MCHC 32.9 g/dL 31.0-3 5.0 Not Available [facility] - [address] Visit [email or web address] Patient Resources For List Of Lab Collection Sites, 47712, 03/22/2021 22:55:48 03/22/20 21 03/22/2021 CBC w/ auto diff RDW 13.0 % 11.1-1 5.1 Not Available [facility] - [facility] [address] [facility] Patient Resources For List Of Lab Collection Sites, 16727, 03/22/2021 22:55:48 03/22/20 21 03/22/2021 CBC w/ auto diff plt 284 K/uL 140-40 0 Not Available [facility] Drive Visit [email or web address] Patient Resources For List Of Lab Collection Sites, 04493, 03/22/2021 22:55:48 03/22/20 21 03/22/2021 CBC w/ auto diff MPV 9.80 fL 7.50-1 4.00 Not Available [facility] [address] Visit [email or web address] Patient Resources For List Of Lab Collection Sites, 29515, 03/22/2021 22:55:48 03/22/20 21 03/22/2021 CBC w/ auto diff neut% 52.4 % 38.8-7 6.4 Not Available [facility] Drive Visit [email or web address] Patient Resources For List Of Lab Collection Sites, 78722, 03/22/2021 22:55:48 03/22/20 21 03/22/2021 CBC w/ auto diff lymph% 37.4 % 17.8-4 6.6 Not Available [facility] [address] Visit [facility] Patient Resources For List Of Lab Collection Sites, 18237, 03/22/2021 22:55:48 03/22/20 21 03/22/2021 CBC w/ auto diff mono% 5.7 % 3.0-11 .0 Not Available [facility] [address] [facility] Patient Resources For List Of Lab Collection Sites, 98234, 03/22/2021 22:55:48 03/22/20 21 03/22/2021 CBC w/ auto diff eos% 3.50 % 0.00-6 .00 Not Available [facility] [address] Visit [email or web address] Patient Resources For List Of Lab Collection Sites, 43814, 03/22/2021 22:55:48 03/22/20 21 03/22/2021 CBC w/ auto diff baso% 0.8 % 0.0-2. 0 Not Available [facility] [address] Visit [email or web address] Patient Resources For List Of Lab Collection Sites, 09273, 03/22/2021 22:55:48 03/22/20 21 03/22/2021 CBC w/ auto diff Ig% 0.20 % 0.00-3 .00 Not Available [facility] [address] Visit [email or web address] Patient Resources For List Of Lab Collection Sites, 44257, 03/22/2021 22:55:48 03/22/20 21 03/22/2021 CBC w/ auto diff NRBC% 0.00 % 0.00-0 .00 Not Available [facility] [address] Visit [email or web address] Patient Resources For List Of Lab Collection Sites, 64762, 03/22/2021 22:55:48 03/22/20 21 03/22/2021 CBC w/ auto diff neut# 2.55 K/uL 1.90-7 .90 Not Available [facility] [address] Visit [email or web address] Patient Resources For List Of Lab Collection Sites, 45464, 03/22/2021 22:55:48 03/22/20 21 03/22/2021 CBC w/ auto diff lymph# 1.82 K/uL 0.95-4 .90 Not Available [facility] - [address] Visit [email or web address] Patient Resources For List Of Lab Collection Sites, 80939, 03/22/2021 22:55:48 03/22/20 21 03/22/2021 CBC w/ auto diff mono# 0.28 K/uL 0.14-1 .20 Not Available [facility] - [facility] [address] Visit [email or web address] Patient Resources For List Of Lab Collection Sites, 44435, 03/22/2021 22:55:48 03/22/20 21 03/22/2021 CBC w/ auto diff eos# 0.17 K/uL 0.00-0 .70 Not Available [facility] [address] Visit [email or web address] Patient Resources For List Of Lab Collection Sites, 29942, 03/22/2021 22:55:48 03/22/20 21 03/22/2021 CBC w/ auto diff baso# 0.04 K/uL 0.00-0 .20 Not Available [facility] [address] Visit [email or web address] Patient Resources For List Of Lab Collection Sites, 96964, 03/22/2021 22:55:48 03/22/20 21 03/22/2021 CBC w/ auto diff Ig# 0.01 K/uL 0.00-0 .30 Not Available [facility] - [address] Visit [email or web address] Patient Resources For List Of Lab Collection Sites, 63915, 03/22/2021 22:55:48 03/22/20 21 03/22/2021 CMP, serum or plasm a glu 99 mg/dL 70-100 Not Available [facility] - [address] Visit [email or web address] Patient Resources For List Of Lab Collection Sites, 29048, 03/22/2021 22:55:49 03/22/20 21 03/22/2021 CMP, serum or plasm a BUN 17 mg/dL 7-25 Not Available [facility] - [address] Visit [email or web address] Patient Resources For List Of Lab Collection Sites, 91407, 03/22/2021 22:55:49 03/22/20 21 03/22/2021 CMP, serum or plasm a crea 0.87 mg/dL 0.50-1 .10 For patie nts >49 years of age, the refer ence limit for Creat inine is appro ximat mauricio 13% highe r for peopl e ident ified as Afric an-Am slick n. Not Available [facility] - [address] Visit [email or web address] - [facility] Patient Resources For List Of Lab Collection Sites, 34563, 03/22/2021 22:55:49 03/22/20 21 03/22/2021 CMP, serum or plasm a GFR 63.37 Refer ence Range for eGFR is >=60 ml/mi n/1.7 3m^2 Not Available [facility] [address] Visit [email or web address] - Select Patient Resources For List Of Lab Collection Sites, [id number], 03/22/2021 22:55:49 03/22/2003/22/2021 CMP, serum or plasm a GFR afric 76.80 Refer ence Range for eGFR is >=60 ml/mi n/1.7 3m^2 Not Available [facility] - [address] Visit [email or web address] - Select Patient Resources For List Of Lab Collection Sites, [id number], 03/22/2021 22:55:49 03/22/20 21 03/22/2021 CMP, serum or plasm a BUN/crea 20 ratio 10-20 Not Available [facility] - [address] Visit [email or web address] - [facility] Patient Resources For List Of Lab Collection Sites, [id number], 03/22/2021 22:55:49 03/22/20 21 03/22/2021 CMP, serum or plasm a Na 134 mmol/ L 134-14 4 Not Available [facility] - [address] Visit [email or web address] - [facility] Patient Resources For List Of Lab Collection Sites, 48569, 03/22/2021 22:55:49 03/22/20 21 03/22/2021 CMP, serum or plasm a K 3.9 mmol/ L 3.5-5. 3 Not Available [facility] - [address] Visit [email or web address] - [facility] Patient Resources For List Of Lab Collection Sites, 53619, 03/22/2021 22:55:49 03/22/20 21 03/22/2021 CMP, serum or plasm a cL 98 mmol/ L 98-110 Not Available [facility] - [address] Visit [email or web address] - [facility] Patient Resources For List Of Lab Collection Sites, 21640, 03/22/2021 22:55:49 03/22/20 21 03/22/2021 CMP, serum or plasm a CO2 31 mmol/ L 22-30 high Not Available [facility] - [address] Visit [email or web address] - [facility] Patient Resources For List Of Lab Collection Sites, 82386, 03/22/2021 22:55:49 03/22/2003/22/2021 CMP, serum or plasm a Ca 9.6 mg/dL 8.6-10 .3 Not Available [facility] - [address] Visit [email or web address] - [facility] Patient Resources For List Of Lab Collection Sites, 21046, 03/22/2021 22:55:49 03/22/20 21 03/22/2021 CMP, serum or plasm a TP 7.0 g/dL 6.3-8. 2 Not Available [facility] - [address] [email or web address] Patient Resources For List Of Lab Collection Sites, 50278, 03/22/2021 22:55:49 03/22/20 21 03/22/2021 CMP, serum or plasm a alb 4.1 g/dL 3.5-5. 0 Not Available [facility] - [address] Visit [email or web address] - [facility] Patient Resources For List Of Lab Collection Sites, 38307, 03/22/2021 22:55:49 03/22/20 21 03/22/2021 CMP, serum or plasm a glob 2.9 g/dL 1.9-3. 7 Not Available [facility] - [address] Visit [email or web address] - Select Patient Resources For List Of Lab Collection Sites, 03003, 03/22/2021 22:55:49 03/22/20 21 03/22/2021 CMP, serum or plasm a A/G 1.4 ratio 1.0-2. 5 Not Available [facility] - [address] Visit [email or web address] - Select Patient Resources For List Of Lab Collection Sites, 83178, 03/22/2021 22:55:49 03/22/20 21 03/22/2021 CMP, serum or plasm a tbil 0.5 mg/dL 0.2-1. 3 Not Available [facility] - [address] Visit [email or web address] - Select Patient Resources For List Of Lab Collection Sites, 60448, 03/22/2021 22:55:49 03/22/20 21 03/22/2021 CMP, serum or plasm a ALKP 108 U/L 38-120 Not Available [facility] - [address] Visit [email or web address] - Select Patient Resources For List Of Lab Collection Sites, 73441, 03/22/2021 22:55:49 03/22/20 21 03/22/2021 CMP, serum or plasm a AST 21 U/L 14-36 Not Available [facility] - [address] Visit [email or web address] - Select Patient Resources For List Of Lab Collection Sites, 79819, 03/22/2021 22:55:49 03/22/20 21 03/22/2021 CMP, serum or plasm a ALT 14 U/L <35 Not Available [facility] - [address] Visit [email or web address] - Select Patient Resources For List Of Lab Collection Sites, 04555, 03/22/2021 22:55:49 03/22/20 21 03/22/2021 TSH, serum , refle x free T4 TSH 2.96 mIU/L 0.40-4 .50 Not Available [facility] - [address] Visit [email or web address] - Select Patient Resources For List Of Lab Collection Sites, 83193, 03/22/2021 22:55:49 03/22/20 21 03/22/2021 lipid panel , serum chol 241 mg/dL 125-20 0 high Not Available [facility] - [address] Visit [email or web address] - Select Patient Resources For List Of Lab Collection Sites, 10923, 03/22/2021 22:55:49 03/22/2003/22/2021 lipid panel , serum HDL 70.0 mg/dL 40.0-6 0.0 high Not Available [facility] - [address] Visit [email or web address] - Select Patient Resources For List Of Lab Collection Sites, 22203, 03/22/2021 22:55:49 03/22/20 21 03/22/2021 lipid panel , serum trig 108 mg/dL <150 Not Available [facility] - [address] Visit [email or web address] - Select Patient Resources For List Of Lab Collection Sites, 45660, 03/22/2021 22:55:49 03/22/20 21 03/22/2021 lipid panel , serum LDLC 149 mg/dL <130 high Kranthi able range : <100 mg/dL for patie nts with CHD or diabe trino. Kranthi able range : <70 mg/dL for diabe tic patie nts with known heart disea se. Not Available [facility] - [address] Visit [email or web address] - Select Patient Resources For List Of Lab Collection Sites, 14198, 03/22/2021 22:55:49 03/22/2003/22/2021 lipid panel , serum chol/HDL 3 ratio <5 Refer ence value is relat ed to risk level s as recom manool d by the [facility] t[facility]. Not Available [facility] - [address] Visit W[email or web address] - Select Patient Resources For List Of Lab Collection Sites, 34866, 03/22/2021 22:55:49 03/22/2003/22/2021 lipid panel , serum VLDL 22 mg/dL 5-40 Typic ally, high level s of VLDL corre spond s to a high level of trigl yceri judy in the blood . There fore, calcu lated VLDL is based on trigl yceri de value . Not Available [facility] - [address] Visit Www[email or web address] - Select Patient Resources For List Of Lab Collection Sites, 61714, 03/22/2021 22:55:49 01/21/2007/09/2019 MAMMO , scree madi, digit al, bilat eral, w/ CAD No observ ation record ed. [facility] [address], [place], [address], 01/21/2020 12:06:48 01/21/20 20 07/09/2019 DEXA, axial skele ton No observ ation record ed. [facility] [address], [place], [address], 01/21/2020 12:06:48 07/07/20 20 imagi ng/di agnos tic resul t No observ ation record ed. [email or web address] Not Available 2019 14:16:56 07/19/20 20 07/18/2020 mg left scree madi uni digta l w/3D Board Certif ied Radiol ogists . [facility] [place], [place] __ Patien t: KAREN BACH Sex: F [...] next recomm ended exam. Thank you. Romel t [facility] Jasmine le provid ers can access this report 20/05 by mary ignacio on to https: //www. [employer] Servic e perfor med during Public Health Emerge ncy (42 U.S.C. 247d-6 d) PPE suppli es utiliz ed accord ing to CDC guidel dontae Interp reted and Electr onical ly signed by: Jaki You [facility] [address] [place] [address] P [phone] WAYNE [facility] [address], [place], [address], 07/20/2020 18:28:33 Result Notes None recorded. 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 breast 96106765 Active Esther stanton null, [facility] 7 11:10:43 Hypokalemia 50891593 Completed 12/08/2019 Kilo Armas, LIYAH [address] [facility],[address], [address] [place] [address] 0 14:31:55 Benign essential hypertensio n 3632295 Active Esther Altamirano-Bar ajas null, [facility] 7 11:10:43 Mixed hyperlipide paulette 997920263 Completed 12/08/2019 Francesca Armas NP [address] [place] [address],[address], [place], [address], [facility] 0 14:32:07 Body mass index 30+ - obesity 118281952 Active Esther Altamirano-Bar ajas null, [facility] 7 11:10:43 Hyperlipide paulette 83687524 Active Esther Altamirano-Bar ajas null, [facility] 7 11:10:43 Osteoporosi s 23479800 Active 2008 Esther Altamirano-Bar ajas null, [facility] 7 11:10:43 Persistent insomnia 972208536 Active 2008 Esther Altamirano-Bar ajas null, [facility] 7 11:10:43 Essential hypertensio n 34925251 Completed 200802/17/2021 Francesca Armas NP [address] [place] [address],[address] [facility], [place], [address], [facility] 1 12:05:30 Insomnia 709354167 Active 2008 Esther Altamirano-Bar ajas null, [facility] 7 11:10:43 Bilateral knee pain Active 2017 Francesca Armas NP [address] [place] [address],[address], [place], [address], [facility] 8 11:14:33 Notes:Intraductal carcinoma Problem Notes None recorded. Procedures Surgical History Date Name Laterality Status Provider Name and Address Organization Details Recorded Time 07/07/20 20 PHQ-9 completed Esther Altamirano-Narayanan [facility] 07/07/2020 14:54:45 07/07/20 20 Visual Acuity completed Esther Altamirano-Narayanan [facility] 07/07/2020 14:55:03 07/07/20 20 AWE 5-10 Year Plan - Female completed Francesca Armas NP [address] [place] [address],[address], [address] 07/07/2020 16:23:27 07/07/20 20 Mini-COG completed Esther Altamirano-Narayanan [facility] 07/07/2020 15:00:51 07/07/20 20 Fall Risk Screening Tool completed Esther Altamirano-Narayanan [facility] 07/07/2020 14:54:16 06/25/20 19 Fall Risk Screening Tool completed Esther Altamirano-Narayanan [facility] 06/25/2019 16:03:38 06/25/20 19 PHQ-9 completed [facility] Altamirano-Narayanan [facility] 06/25/2019 16:04:35 06/25/20 19 Visual Acuity completed Esther Altamirano-Narayanan [facility] 06/25/2019 16:13:41 06/25/20 19 AWE 5-10 Year Plan - Female completed Francesca Armas NP [address] [place] [address],[address] [place] [address], [address] 06/26/2019 08:31:16 06/25/20 19 Mini-COG completed Francesca Armas NP [address] [place] [address],[address], [address] 06/26/2019 08:31:50 07/31/20 17 MWE Male and Female- [place] - FOR REVIEW completed Francesca Armas NP [address] [place] [address],[address] [place] [address], [address] 07/31/2017 14:36:20 10/28/19 17 Colonoscopy completed Esther Altamirano-Narayanan [facility] 07/07/2020 14:48:43 05/28/20 13 4: Non-user Tobacco completed MAJO Fuentes [address] [place] [address],[address] [place] [address], [address] 05/28/2013 11:40:58 05/28/20 13 5: Verification Current Meds in MR - List of current medications completed MAJO Fuentes [address] [place] [address],[address], [place], [address], [facility] 05/28/2013 11:40:58 05/28/20 13 1: LDL- C not performed within 12 months, reason not specified completed MAJO Fuentes [address] [place] [address],[address], [place], [address], [facility] 05/28/2013 11:40:58 10/29/19 03 Total Mastectomy completed Not Available [facility] 03:01:42 Imaging Results None recorded. Procedure Notes None [...] Available Not Available Not Available collagen (bovine) 08/29 /2019 completed Not Available Not Available Not Available [...] Not Available Not Available Not Available Fluzone 1415-3962 45 mcg (15 mcg x 3)/0.5 mL intramuscul ar suspension TO BE ADMINISTE RED BY PHARMACIS T FOR IMMUNIZAT ION active Not Available Not Available No t Available Fluvirin 7683-0218 45 mcg (15 mcg x 3)/0.5 mL intramuscul ar suspension INJECT 0.5 ML INTRAMUSC ULARLY DIRECTED. active Not Available Not Available No t Available Fluvirin 45 mcg (15 mcg x 3)/0.5 mL [...] rate Respiratory rate Body temperature Oxygen saturation Pain severity - 0-10 verbal numeric rating [Score] - Reported Systolic And Diastolic Systolic And Diastolic Provider Name and Address Organization Details Last Updated DateTime 0 147.95 cm 32.5 kg/m2 95837 g 56 /min 17 /min 97.7 [degF] 98 % 0 158/73 mm[Hg] 130/80 mm[Hg] Esther [facility] 0 14:50:14 Date Recorded Body height Body mass index (BMI) Body weight Systolic And Diastolic Provider Name and Address Organization Details Last Updated DateTime 02/17/2021 147.95 cm 31.9 kg/m2 33151.22 g 128/70 mm[Hg] Esther Thayer [facility] 02/17/2021 11:48:41 Date Recorded Body height Body mass index (BMI) Body weight Pain severity - 0-10 verbal numeric rating [Score] - Reported Systolic And Diastolic Provider Name and Address Organization Details Last Updated DateTime 03/31/2020 147.95 cm 32.1 kg/m2 78371.82 g 0 120/80 mm[Hg] Esther stanton [facility] 0 16:23:15 Date Recorded Body height Provider Name an d Address Organization Details Last Updated DateTime 05/06/2020 147.95 cm Esther King [facility] 05/06/2020 11:44:54 Date Recorded Body height Body mass index (BMI) Body weight Systolic And Diastolic Provider Name and Address Organization Details Last Updated DateTime 07/07/2020 147.95 cm 31.8 kg/m2 75666.43 g 158/78 mm[Hg] Esther Thayer [facility] 07/07/2020 15:41:40 Social History Question Answer Notes LastModified by Organizat ion Details LastModified Time Tobacco Smoking Status Former [facility]oker [email or web address] 11:11:07 Do You Have An Advance Directive? Yes Per Pt She Has Advanced Directive Will Bring To Next Visit [email or web address] Information not available 05/22/2018 What Is Your Level Of Caffeine Consumption? Moderate Diet Coke- Diet Pepsi [email or web address] Information not available 06/25/2019 How Much Tobacco Do You Chew? None [email or web address] Information not available 08/05/2014 What Type Of [...] Is Active? No Information not available 07/27/2015 Date Of Last Dexa Scan 07/09/2019 [email or web address] Information not available 01/21/2020 Does The Patient Have Fever And Cough Or Shortness Of Breath AND In The Last 14 Days Has The Patient Come In Contact With Someone With Confirmed 2019-nCoV? No Information not available 12/08/2019 If Pulse Oximetry Was Done: Is The Patient's Sp02 Less Than 93% On Room Air? No Information not available 03/31/2020 Date Of Last Mammogram 07/09/2019 [email or web address] Information not available 01/21/2020 Marital Status [email or web address] Informati on not available 08/05/2014 What Was The Date Of Your Most Recent Tobacco Screening? 03/31/2020 Information not available 03/31/2020 How Much Tobacco Do You Smoke? No [email or web address] Information not available 11/28/2018 General Stress Level Low Information not available 07/27/2015 How Many Years Have You Smoked Tobacco? 4 [email or web address] Information not available 11/28/2018 Sex: Unknown Functional Status Question Answer Note LastModified by Organizat ion Details LastModified Time What is your level of alcohol consumption? Occasional Information not available 06/25/2019 Do you or have you ever used smokeless tobacco? 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 Never used electronic cigarettes Information not available 06/25/2019 What is your exercise level? Occasional Information [...] Influenza, high-dose, trivalent, PF 3 completed Esther Altamirano-Narayanan [facility] 07/31/2017 11:11:30 Influenza, split virus, quadrivalent, preservative 4 completed Esther Carlsonz-Narayanan [facility] 07/31/2017 11:11:30 Influenza, high-dose, trivalent, PF 5 completed Esther Altamirano-Narayanan [facility] 07/31/2017 11:11:30 Pneumococcal conjugate PCV 13 7 completed Esther Altamirano-Narayanan [facility] 07/31/2017 11:11:30 influenza, unspecified formulation 7 [facility] Esther Altamirano-Narayanan [facility] 07/31/2017 11:11:30 Influenza, high-dose, trivalent, PF 7 completed Esther Altamirano-Narayanan [facility] 07/31/2017 11:11:30 pneumococcal polysaccharide PPV23 3 completed Esther Altamirano-Narayanan [facility] 07/31/2017 11:42:48 influenza, unspecified formulation 8 completed Charmaine Gamble [facility] 11/28/2018 13:42:37 Influenza, high-dose, trivalent, PF 9 completed Jazz Handy [facility] 08/04/2019 13:19:43 Tdap 0 completed Esther Altamirano-Narayanan null, [facility] 07/12/2020 16:17:39 zoster recombinant 0 completed Esthertim Altamirano-Narayanan null, [facility] 02/17/2021 11:49:48 COVID-19, mRNA, LNP-S, PF, 30 mcg/0.3 mL dose 1 completed Esther Lawtonmez-Narayanan null, [facility] 02/17/2021 11:50:00 COVID-19, mRNA, LNP-S, PF, 30 mcg/0.3 mL dose 1 completed Esther [facility] 02/17/2021 11:50:08 Influenza, split virus, quadrivalent, preservative 0 completed Esther [facility] 02/17/2021 11:50:16 Past Encounters Encounter ID Performer Location Encounter Start Date Encounter Closed Date Diagnosis/Indication Diagnosis SNOMED-CT Code Diagnosis ICD10 Code Diagnosis IMO Codes Diagnosis Note [id number] Oleg Medina PA-C [facility] [address] [place] [address] 05/30/2009 11:01:18 05/30/2009 12:00:48 [id number] Oleg Medina PA-C [facility] [address] [place] [address] 03/24/2010 09:40:09 03/24/2010 11:53:24 [id number] MD VICTORINA McfarlaneX[facility] [address] [place] [address] 04/06/2011 11:21:22 04/06/2011 11:43:56 [id number] MD VICTORINA McfarlaneX[facility] [address] [address] 11/28/2011 09:04:21 11/28/2011 09:52:25 [id number] MAJO Fuentes_[facility] [address] [place] [address] 05/28/2013 10:40:46 05/28/2013 12:50:11 [id number] Elizabeth Fischer MD [facility] [address] [place] [address] 09/02/2013 11:42:32 09/02/2013 17:13:34 Essential hypertension 70225892 Home BPs very well controlled Continue current HCTZ Screening labs f/u in 6 months or sooner if BP >140/90 Persistent insomnia 595538451 Discussed zolpidem use Patient not willing/ab le to wean off States that she sleeps well using zolpidem frequently (but not every night) Continue current dose Edema 923413386 Non-pittin g edema Concern for thyroid disease Screen for this today Hyperlipidemia 85768640 No t tolerating statins On red yeast rice, doing well Check FLP [id number] Elizabeth Fischer MD [facility] [address] [place] [address] 08/05/2014 10:48:06 08/05/2014 11:30:08 Benign essential hypertension 4740129 Needs screening labs SBP elevated, DBP low Continue current meds f/u 6 months Mixed hyperlipidemia 179177999 Needs FLP Continue red yeast rice for now Insomnia 333909885 Patient dependent on zolpidem Counseled on risks of zolpidem Continue for now [id number] Elizabeth Fischer MD [facility] [address] [place] [address] 01/24/2015 13:56:04 01/24/2015 15:01:09 Insomnia 738601354 discussed use of zolpidem and recommedat ion to wean. patient understand s and cannot sleep without it. she states she does not use it every night, some nights she is able to go to sleep unaided and she will continue to try to wean. Benign ess ential hypertension 9766768 patient states when she heard she was to have blood drawn today she became very nervous and bp went up. she checks her own pressure daily and states 125-140/65 -75 daily. Low salt diet and weight loss are discussed. patient hand out given. continue current medication Mixed hyperlipidemia 189867120 patient has never been able to complete a blood draw although several attempts have been made. We will attempt again and if she cannot complete it she will have it done with her oncologist in a week. patient hand out given recommendi ng diet and exercise. [id number] MD XIOMARA Pleitez [address] [place] [address] Dr [address] [place] [address] 07/27/2015 14:08:28 07/27/2015 15:16:47 Benign essential hypertension 8614398 Well controlled Continue current meds Screening labs at next ov f/u 6 months Mixed hyperlipidemia 784030340 Doing well on red yeast rice f/u 6 months, FLP at next visit Persistent insomnia 368121640 Patient with occasional use of zolpidem Ok to continue [id number] MD XIOMARA Resendiz [facility] [address] [place] [address] [address] [place] [address] 02/10/2015 10:36:47 02/10/2015 12:14:04 Body mass index 30+ - obesity 281928440 Essential hypertension 56779294 discussed possibilit y of HCTZ contributi ng to hypokalemi a and described signs and symptoms of low potassium to seek eval for if experience d. patient will take more potassium rich foods. Hyperlipidemia 72173797 di scussed breakdown of lipid panel and diet choices. [id number] MD HERLINDA PleitezKATHARINA CRENSHAW [facility] [address] [place] [address] Dr [address] [place] [address] 01/25/2016 10:36:41 01/25/2016 11:33:33 Benign essential hypertension 6794773 I10 Continue current meds Screening labs Mixed hyperlipidemia 267 814007 E78.2 Continue red yeast rice Check FLP Persistent insomnia 1918 48981 G47.09 Patient continues to be dependent on zolpidem, unable to wean No adverse affects [id number] MD XIOMARA Pleitez [facility] [address] [place] [address] Dr [address] [place] [address] 05/28/2016 11:38:07 05/28/2016 12:10:34 Benign essential hypertension 2136099 I10 Doing well Screening labs Continue current meds Hyperlipidemia 80655918 E78.5 Patient will only tolerate red yeast rice Check FLP and LFTs Persistent insomnia 1918 67118 G47.09 Unable to wean zolpidem at this time [id number] Elizabeth Fischer MD [facility] [address] [place] [address] 01/21/2017 11:19:33 01/21/2017 11:51:14 Benign essential hypertension 8861438 I10 Mixed hyperlipidemia 267 912836 E78.2 Persistent insomnia 1918 72558 G47.09 Unable to wean zolpidem at this time Primary ma lignant neoplasm of upper inner quadrant of female breast 81166769 C50.211 Screening mammography 24 154021 Z12.31 [id number] Francesca Armas NP [facility] [address] [place] [address] 07/31/2017 10:22:37 07/31/2017 12:18:16 Screening for osteoporosis 006830134 Z13.820 Advance di rective discussed with patient 748151284 Z71.89 Adult heal th examination 907403596 Z00.00 The patient is here for an AMW exam. Health risk assessment performed. No major concerns on history or PE at this time. Screening guidelines reviewed in light of risk assessment and personaliz ed prevention plan was reviewed with the patient. Screening for malignant neoplasm of colon 704919695 Z12.11 up to date per GI no longer needs any colonoscop y due to age [id number] Pura Gonzalez MD [facility] [place] [address] [place] [address] 05/22/2018 10:09:34 05/22/2018 12:13:58 Benign essential hypertension 8903254 I10 The DASH eatingplan includes whole grains, poultry, fish, and nuts, and has low amounts of fats, red meats, sweets, and sugared beverages. It is also high in potassium, calcium, and magnesium, as well as protein and fiber. Eating foods lower in salt and sodium also can reducebloo d pressure. refill given will see her back in 6 months Persistent insomnia 1918 01994 G47.09 she did not use her last RX brought back- too expensive Advance care planning 71 8144799 Z71.89 per pt she has advanced directive will bring to next visit Screening mammography 24 231679 Z12.31 ordered mammogram Hyperlipidemia 12676160 E78.5 pending lab work Diabetes marci teague screening 815601194 Z13.1 patient requesting to have diabetes work up Bilateral knee pain 1187 620297 9374046 M25.562 will have ortho evaluate [id number] Pura Gonzalez MD [place] [address], [address] [place] [address] 11/28/2018 13:21:27 11/28/2018 14:34:39 Benign essential hypertension 9231212 I10 refill given will see her back in 6 months she declined lipid testing today Persistent insomnia 1919 75761 G47.09 to use only as needed Hepatitis C screening 41 1117617 Z11.59 rani benita today Bilateral knee pain 1187 499338 0550512 M25.562 follow up as needed [id number] Pura Gonzalez MD [place] [address] [address], [facility] [address] [place] [address] 06/25/2019 14:58:51 06/25/2019 16:36:56 Adult health examination 687776699 Z00.00 The patient is here for an AMW exam. Health risk assessment performed. No major concerns on history or PE at this time. Screening guidelines reviewed in light of risk assessment and personaliz ed prevention plan was reviewed with the patient. Screening mammography 24 785194 Z12.31 ordered mammogram Screening for osteoporosis 668300733 Z13.820 ordered Active or passive immunization 410877938 Z23 will sendin orders Advance di rective discussed with patient 235752272 Z71.89 directions and forms given to patient at time of visit [id number] Pura Gonzalez MD [place] [address], [address] [place] [address] 12/08/2019 13:55:32 12/08/2019 15:07:12 Body mass index 30+ - obesity 965229356 Z68.32 Persistent insomnia 1919 19058 G47.09 to use only as needed Sleep hygeine reinforced denies snoring no daytime naps Benign ess ential hypertension 7711280 I10 Limit sodium Stay on diet Remain as active as tolerated Follow up in 6 months Hyperlipidemia 66524940 E78.5 Continue with diet Remain active with water aerobics Osteoarthr itis of knee 988864426 M17.9 Stay up to date with ortho Remain as active as tolerated [id number] Pura Gonzalez MD [address] [address] 03/31/2020 16:09:22 03/31/2020 16:31:43 Insomnia 849047941 G47.00 [id number] Pura Gonzalez MD [address] [address] 05/06/2020 11:39:39 05/06/2020 12:21:04 Otitis externa 9154699 H60.91 - use swimmers ear after swimming , place 2 drops - avoid submerging head in the pool for 6 days -follow up if symptoms do not improve in the next 6 days or sooner if they worsen -pt agrees with plan of care [id number] Pura Gonzalez MD [address] [address] 07/07/2020 14:21:42 07/07/2020 15:53:13 Adult health examination 460982867 Z00.00 - will call her with results and recommenda itons Body mass index 30+ - obesity 532583379 Z68.32 Active or passive immunization 660639449 Z23 -she will go to her pharmacy for her immunizati ons but at this time is not sure if she will get her shingles immunizati on , she understand s the need but is not sure if she wants to have the immunizati on. All questions answered Screening mammography 24 294127 Z12.31 -ordered, will await results and call with with the results [id number] Pura Gonzalez MD [address] [address] 02/17/2021 11:15:17 02/17/2021 12:16:06 Insomnia 931850445 G47.00 low risk for falls - did reinforce precaution 's for daily use of her ambien - keep night lights on and tape down all loose rugs - will refill PHARMACY BUYER aware reviewed and no red flags - follow up in 6 months Body mass index 30+ - obesity 710979545 Z68.32 Benign ess ential hypertension 6277091 I10 - to come in ad have her lab work done in the next month -continue with water aerobics and stay active - follow low sodium diet - follow up in 6 months Hyperlipidemia 20343266 E78.5 Health Concerns Section Related Observation LastModified by Organization Detai ls LastModified Time None Recorded Concern Status LastModified by Organization Details LastModified Time None Recorded Advance Directives Directive Y: per pt she has advanced d irective will bring to next visit Payers Insurance Date Sequence Insurance Name Policy Number Policy David Covered Member ID David Member ID Guarantor Name 02/17/2021 1 [employer] (MEDICARE REPLACEMENT/A DVANTAGE - PPO) [id number] Fela Malik [id number] Fela Nuñezk 02/17/2021 1 [place] [id number] Fela Nuñezk [id number] Fela Posadanak 02/17/2021 2 [employer] - TRS CARE (PPO) [id number] Fela Nuñezk [id number] Fela Posadanak 02/17/2021 2 [place] Fela Nuñezk [id number] Fela Posadanak 02/17/2021 1 [employer] - TRS CARE - [place] (MEDICARE REPLACEMENT PPO) [id number] Fela Malik [id number] Fela Posadanak 03/21/2021 1 [facility] (MEDICARE REPLACEMENT/A DVANTAGE - PPO) [id number] Fela Nuñezk [id number] Fela Posadanak 01/23/2017 1 *SELF PAY* Ca georgina Malik Notes Date Note Type Note Provider Name and Address Organization Details Recorded Time 12/08/2019 text/html Osteoarthritis MonitoringReported by PatientHPIFor functional status: activities of daily living, patient reportsdifficulty walking unassistedbut reportsable to walkanddriving not impaired. For associated symptoms, patient reportsno fever,no tooth problems,no mouth sores or pain,no pain with respiration,no cough,no shortness of breath,no gi symptoms, andno gu symptoms. Hypertension F/UReported by PatientHPIFor associated symptoms, patient reportsno dizziness,no lightheadedness,no chest pain,no shortness of breath,no palpitations,no edema, andno calf pain with exertion. For lifestyle, patient reportsregular exerciseandlimiting/brody iding salt. For medications, patient reportstaking medications as directedandno side effects from medication. Insomnia : did improve with ambien - [...] not wish any medications Francesca Armas NP [address] [place] [address],[address], [place], [address], [facility] 12/08/2019 15:03:33 03/31/2020 text/html InsomniaReported by PatientHPIFor severity, patient reportsimproving. For associated symptoms, patient reportsno anxiety,no snoring,no depression,no known sleep apnea,no pain,no dyspnea,no urinary frequency, andlegs do not feel restless. Hypertension F/UReported by PatientHPIFor associated symptoms, patient reportsno dizziness,no lightheadedness,no chest pain,no shortness of breath,no palpitations,no edema, andno calf pain with exertion. For lifestyle, patient reportsregular exerciseandlimiting/brody iding salt. For medications, patient reportstaking medications as directedandno side effects from medication. Insomnia : Francesca Armas NP [address] [place] [address],[address], [place], [address], [facility] 03/31/2020 16:30:16 05/06/2020 text/html Virtual visit due to COVID 19 pandemic [...] redness, no fever Francesca Armas NP [address] [facility],[address], [place], [address], [facility] 05/06/2020 12:03:27 07/07/2020 text/html Medicare AWV/IPPEReported by PatientFunctional AbilityFor hearing, patient reportsno limitations. For vision, patient reportsno limitations. For speech, patient reportsnormal.Activitie s of Daily LivingFor mobility, patient reportsno limitations. For transferring, patient reportsno limitations. For toileting, patient reportsno limitations. For bathing, patient reportsno limitations. For eating, patient reportsno limitations. For dressing, patient reportsno limitations. For activities, patient reportsexercises on a regular basis,recent increase in physical activity, andgood physical condition.Instrumental Activities of Daily LivingFor medication management, patient reportsno limitations. For shopping, patient reportsno limitations. For housework, patient reportsno assistance required. For financial, patient reportsno limitations.Home Safety:For home safety, patient reportsreviewed and discussed shower safety,benefit of guard rails,minimizing clutter,seat belt use,driving precautions,transition zones between hard floors and carpet, andregular routine exercise recommended to improve adl/idl and reduce fall risk.Advance DirectiveFor legal documents on file for advance directive, patient reportspatient does have an advance directive in the chart. patient was instructed to bring a copy of their advance directive to the office. patient did receive advance directive counseling and information.. Francesca Armas NP [address] [place] [address],[address], [place], [address], [facility] 07/07/2020 16:26:30 02/17/2021 text/html Virtual visit due to COVID 19 pandemic [...] well and has been stable as per Gasoline Dragline Operator 120/70 s Francesca Armas, LIYAH [address] [facility],[address], [place], [address], [facility] 02/17/2021 12:14:55 OBGyn Episode No OBEpisode recorded.
--- OUTSIDE RECORDS SUMMARY | 2025-10-23 09:56 | XMS_ITS | Patient Health Record ---
Author Organization Ryan Gonzalez MD PA Address [address] [place] [address] Care Team Providers Care Fresco Artist Name Role Phone Kalie Eason Primary Care Provider Dr. RYAN Stern Unavailable [phone] Allergies No Known Allergies Reason For Referral No Information Medications Medication SIG (Take, Route, Frequency, Duration) Notes Start Date End Date Status Vitamin D Active Calcium Active Gabapentin Active Zolpidem Tartrate 5 MG 1 tablet at bedti me Orally Once a day Active amLODIPine Besylate 2.5 MG 1 tablet Oral ly Once a day; Duration: 30 day(s) 08/20/2022 Active Magnesium Active Problems Problem Type SNOMED Code ICD Code Onset Dates Problem Status W/U Status Risk Notes Problem Obstructive sleep apnea syndrome (disorder) (37597429) Obstructive sleep apnea (adult) (pediatric) (G47.33) Active confirmed Plan Of Treatment Pending Test Test Name Order Date POLYSOMNOGRAPHY >6 Y/O CPT - 70510 08/20 POLYSOMNOGRAPHY W/PAP CPT-75570 08/20/20 22 Insurance Providers Payer Name Payer Address Payer Phone Subscriber Number Group Number Insured Name Patient Relationship to Insured Coverage Start Date Coverage End Date [employer] Medicare Advg PPO [address] [address] [place] [address] [id number] Fela Malik Self - patient is the insured 2 Medical (General) History Medical History History ICD Code Arthritis cancer High Blood Pressure
--- OUTSIDE RECORDS SUMMARY | 2025-10-23 09:56 | XMS_ITS | Clinical Summary ---
Author Organization [facility] Address [address] [facility] [place] [address] Care Team Providers Care Student Accounts Coordinator Name Role Phone Nimesh Armas SAT MATH TUTOR Primary Care Provider Immunizations Immunization Administration Dates Next Due Fluzone Trivalent High Dose (65+ years) 08/03/20 19,09/03/2016 Social History Tobacco Use Types Packs/Day Years Used Date Smoking Tobacco: Never Assessed Comments Unknown Sex and Gender Information Value Date Recorded Sex Assigned at Not on file Legal Sex Female 1:41 PM EST Gender Identity Not on file Sexual Orientation Not on file Plan of Treatment Not on file Medical Devices Not on file Insurance [employer] MCARE Care Teams Student Accounts Coordinator Relationship Specialty Start Date End Date Nimesh Armas NP PCP - General Family Medicine 08/03/19
--- OUTSIDE RECORDS SUMMARY | 2025-10-23 09:56 | XMS_ITS | Patient Health Record ---
Author Organization [facility] Address [address] [place] [address] Phone [phone] Care Team Providers Care Shopfitter Name Role Phone MONICA RAPHAEL MD Unavailable Reason For Referral No Information Medications Medication SIG (Take, Route, Frequency, Duration) Notes Start Date End Date Diagnosis (ICD Code) Status hydroCHLOROthiazide Oral *please revi ew for potential update for e-prescription and drug interaction check* *Pick strength-form from Medispan for eRX* Active Cranberry Oral *please review for potential update for e-prescription and drug interaction check* *Pick strength-form from Medispan for eRX* Active Aspir-Low 81 MG Tablet Delayed Release Oral Active Red Yeast Rice Oral *please review for potential update for e-prescription and drug interaction check* *Pick strength-form from Medispan for eRX* Active Social History Sex Observation Social History Observation Description Sex Observation Female Social History Additional Details Category Social Info Options Details Social History Migrated Social History Migrated Social History(Migrated Social History): Substance Use :: Alcohol :: Never , Substance Use :: Illegal Substance :: Never , Substance Use :: Nutritional Supplements :: Never , Substance Use :: Tobacco :: Never Problems Problem Type SNOMED Code ICD Code Dates Problem Status W/U Status Risk Notes Problem Breast cancer (764152461) Breast cancer (C50.919) Onset Date: 013 Active confirmed Problem Paralysis of vocal cords (903469927) 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 Problem Hoarseness (84465476) Hoarseness (R49.0) Onset Date: Active confirmed Plan Of Treatment No Information Insurance Providers Payer Name Payer Address Payer Phone Subscriber Number Group Number Insured Name Patient Relationship to Insured Coverage Start Date Coverage End Date A[employer] [address] [place] [address] [id number] Fela Malik Self - patient is the insured Medical (General) History Surgical History Surgery Date(Month/Year) Hysterectomy, Date of Procedure: 2008; Mastectomy: Right Breast, Date of Proced ure: 2002; 2012-12-23 Tracheostomy, Date of Procedure: 2012-12-23
--- OUTSIDE RECORDS SUMMARY | 2025-10-23 09:56 | XMS_ITS | Clinical Summary ---
Author Organization [facility] Address [address] [place] [address] Care Team Providers Care Marketing Mgr Name Role Phone Kalie Eason Primary Care Provider Source Comments This patient is being referred for medical care/services via this automatically generate document. This document will provide information important for the transfer of patient care & comply with [facility] Meaningful Use Transitions of Care requirements.[facility] Allergies Active Allergy Reactions Criticality Noted Date [...] Sex Assigned at Female 11/04/2021 6:28 PM BOX MACHINE OPERATOR Legal Sex Female 10:56 AM CDT Gender Identity Female 11/04/2021 6:28 PM BOX MACHINE OPERATOR Sexual Orientation Straight 11/04/2021 6: 28 PM BOX MACHINE OPERATOR Last Filed Vital Signs Vital Sign Reading Time Taken Comments Blood Pressure 190/74 01/19/2014 12:42 PM CDT Pulse 54 01/19/2014 12:42 PM CDT Temperature - - Respiratory Rate 18 11/26/2023 8:24 AM BOX MACHINE OPERATOR Oxygen Saturation - - Inhaled Oxygen Concentration - - Weight 72.1 kg (159 lb) 11/26/2023 8:24 AM BOX MACHINE OPERATOR Height 147.3 cm (4' 10) 11/26/2023 8:24 AM BOX MACHINE OPERATOR Body Mass Index 33.23 11/26/2023 8:24 AM BOX MACHINE OPERATOR Plan of Treatment Health Maintenance Due Date Last Done Comments DXA For Osteoporosis Screening 1945 DTaP/Td/Tdap Vaccine (1 - Tdap) 1964 Respiratory Syncytial Virus (RSV) patients and patients 60+Years (1 - 1-dose 75+ series) 2020 Fall Risk Screening 10/28/2024 INFLUENZA VACCINE (#1) 2025 , 08/25/2024, 08/14/2023, Additional history exists COVID-19 Vaccine ( season) 2025 08/25/2024, 08/14/2023, 07/31/2023, Additional history exists Zoster Vaccine Completed 12/26/2020, 10/03/2020 Pneumococcal Vaccine Completed 04/02/2023, 07/18/2017, 11/19/2012 Breast Cancer Screening (Mammogram) Discontinued 09/18/2024, 09/16/2023 HPV Vaccine Aged Out No longer eligi ble based on patient's age to complete this topic Meningococcal ACWY Aged Out No longer eligible based on patient's age to complete this topic Meningococcal B Aged Out No longer el igible based on patient's age to complete this topic Care Teams Marketing Mgr Relationship Specialty Start Date End Date Kalie Eason [address] [place] [address] PCP - General Family Medicine 06/21/22
--- OUTSIDE RECORDS SUMMARY | 2025-10-23 09:56 | XMS_ITS | Clinical Summary ---
Author Organization [facility] Address [address] [place] [address] Care Team Providers Care Hvac Commercial Salesperson Name Role Phone Laura Gasca MD Primary Care Provider [phone] Allergies Active Allergy Reactions Criticality Noted Date Comments Acetaminophen-Codeine Itching Medium 08/27/2023 Medications Calcium Carb-Magnesium Carb 250-300 MG tablet Take 300 mg by mouth 1 (one) time each day. Active MAGNESIUM GLYCINATE PO Take 200 mg by mouth at bedtime. Active hydrOXYzine HCl (ATARAX) 25 MG tabletIndications :Primary insomnia Take 1 tablet (25 mg) by mouth at night if needed for itching. 90 tablet 3 02/25/20 25 Active MAGNESIUM D-LOEOWX-DDN C-VIT D PO Take 1 tablet by mouth in the morning. Active Coenzyme Q10 (CoQ-10) 100 MG capsule Take 1 capsule by mouth in the morning. Active rosuvastatin (CRESTOR) 10 MG tabletIndications :Mixed hyperlipidemia (CMS/HCC) Take 1 tablet (10 mg) by mouth 1 (one) time a day. 90 tablet 3 10/11/20 25 Active hydroCHLOROthiazi de (HYDRODIURIL) 25 MG tabletIndications :Primary hypertension (CMS/HCC) Take 1 tablet (25 mg) by mouth in the morning. 90 tablet 3 10/11/20 25 Active amLODIPine (NORVASC) 2.5 MG tabletIndications :Primary hypertension (CMS/HCC) Take 1 tablet (2.5 mg) by mouth 1 (one) time a day. 90 tablet 3 10/11/20 25 Active traZODone (DESYREL) 50 MG tabletIndications :Primary insomnia Take 1 tablet (50 mg) by mouth at night if needed for sleep. 30 tablet 3 10/11/20 026 Active cephalexin (KEFLEX) 500 MG capsule Take 1 capsule (500 mg) by mouth in the morning. For 7 days . 02/19/20 025 Discontinued rosuvastatin (CRESTOR) 10 MG tabletIndications :Mixed hyperlipidemia (CMS/HCC) Take 1 tablet (10 mg) by mouth in the morning. 90 tablet 3 02/25/20 025 Discontinued(Re order) hydroCHLOROthiazi de (HYDRODIURIL) 25 MG tabletIndications :Primary hypertension (CMS/HCC) Take 1 tablet (25 mg) by mouth in the morning. 90 tablet 3 02/25/20 025 Discontinued(Re order) amLODIPine (NORVASC) 2.5 MG tabletIndications :Primary hypertension (CMS/HCC) Take 1 tablet (2.5 mg) by mouth in the morning. 90 tablet 3 02/25/20 025 Discontinued(Re order) Active Problems No known active problems Encounters Date Type Department Care Team Description 10/11/2025 12:20 PM REPAIRER WOOD FURNITURE Office Visit [address] [phone] Laura Gasca MD Encounter for initial annual wellness visit (AWV) in Medicare patient (Primary Dx); Depression screening; Primary hypertension (CMS/HCC); Mixed hyperlipidemia (CMS/HCC); Primary insomnia; Routine general medical examination at a health care facility 09/15/[address] [phone] Laura Gasca MD 07/28/2025 Results Follow-Up [address] [phone] Laura Gasca MD Comprehensive Metabolic Panel, CBC with Auto differential, Tsh With Rflex To Free T4, Lipid Panel from Last 3 Months Immunizations Immunization Administration Dates Next Due 12 years+ Pfizer Monovalent SARS-COV-2 3 Covid Unspecified 07/26/2025,08/25/2024 Sim Cap Pfizer SARS-CoV-2 Vaccination 04/26/202 2 Influenza High Dose Preserva tive Free IM 2019,07/18/2017,09/03/2016,07/02,08/25/2013 Influenza High Dose Quadriva lent (Fluzone) 07/26/2025,08/25/2024,08/14/2023,08/02 Influenza, Unspecified 08/25/2024,07/07/2018 Influenza, injectable, quadrivalent 07/28/2020,0 07/21/2014 Pfizer Omicron Bivalent SARS -CoV-2 Vaccination 04/02/2023,07/23/2022 Pneumococcal Conjugate PCV 13 07/18/2017 Pneumococcal Conjugate PCV 20 04/02/2023 Pneumococcal Polysaccharide PPV23 11/19/2012 Purple Cap Pfizer SARS-CoV-2 Vaccination 08/14/2023,06/14/2021,02/04/2021,01/04,12/05/2020 Tdap 07/12/2020 Zoster, Recombinant 12/26/2020,10/03/2020 Family History Medical History Relation Name Comments Cancer Brother Tommy Cancer Mother Mom Hypertension Mother Mom Miscarriages / Stillbirths Mother Mom Cancer Sister Reyna Relation Name Status Comments Brother Tommy Father Mother Mom Sister Reyna Social History Tobacco Use Types Packs/Day Years Used Date Smoking Tobacco: Never Smokeless Tobacco: Never Alcohol Use Standard Drinks/Week Comments Never 0 (1 standard drink = 0.6 oz pur e alcohol) PHQ-2 Answer Date Recorded Total PHQ-2 Score 0 10/11/2025 Alcohol Use - Patient History Answer Da te Recorded Alcohol Drinks per Week 0 10/11/20 25 Comments No Sex and Gender Information Value Date Recorded Sex Assigned at Not on file Legal Sex Female 7:09 PM REPA[employer] Gender Identity Female 11/28/2023 7:43 AM REPA[employer] Sexual Orientation Not on file Last Filed Vital Signs Vital Sign Reading Time Taken Comments Blood Pressure 125/75 10/11/2025 12:04 PM REPA[employer] Pulse 72 10/11/2025 12:04 PM REPA[employer]ER [employer]ITURE Temperature 36.9 C (98.5 F) 10/11/2025 12:04 PM REPA[employer]ER [employer]ITURE Respiratory Rate 18 10/11/2025 12:04 PM REPA[employer]ER [employer]ITURE Oxygen Saturation 97% 08/27/2024 1:50 PM CDT Inhaled Oxygen Concentration - - Weight 75.5 kg (166 lb 8 oz) 10/11/2025 12:04 PM REPA[employer] Height 147.3 cm (4' 9.99) 10/11/2025 12:04 PM Leona LINDER Body Mass Index 34.81 10/11/2025 12:04 PM REPA[employer] Plan of Treatment Upcoming Encounters Date Type Department Care Team (Late st Contact Info) Description 04/11/2026 12:00 PM CDT Office Visit [facility] [id number] [place] [phone] [place] [id number] [place], [place] [phone] Health Maintenance Due Date Last Done Comments Medicare Subsequent AWV [id number] 10/11/2025 COVID-19 Vaccine ( season) 2026 07/26/2025, 08/25/2024, 08/14/2023, Additional history exists Osteoporosis Screening 09/18/2026 09/18/2024, 2018 DTaP,Tdap,and Td Vaccines (2 - Td or Tdap) 07/12/2030 07/12/2020 Lipid Panel 07/27/2030 07/27/2025, 01/26, 10/03/2023 Zoster Vaccines Completed 12/26/2020, 10/03/2020 Pneumococcal Vaccine: 50+ Years Completed 04/02/2023, 07/18/2017, 11/19/2012 RSV Vaccine for patients and patients aged 50 years or older Completed 09/27/2023 BMI Education & Follow-up Completed 2024, 11/27/2023, 08/27/2023 Influenza Vaccine Completed 07/26/2025, , 08/25/2024, Additional history exists HPV Vaccines (No Doses Required) Completed Hepatitis B Vaccines Aged Out No long er eligible based on patient's age to complete this topic Meningococcal Vaccine (MCV4) Aged Out No longer eligible based on patient's age to complete this topic Procedures Procedure Name Priority Date/Time Associated Diagnosis Comments LIPID PANEL Routine 07/27/2025 12:36 PM CDT Mixed hyperlipidemia (CMS/HCC) TSH WITH RFLEX TO FREE T4 Routine 07/27/2025 12:36 PM CDT Routine general medical examination at a health care facility CBC WITH AUTO DIFFERENTIAL Routine 07/27/2025 12:36 PM CDT Primary hypertension (CMS/HCC) COMPREHENSIVE METABOLIC PANEL Routine 07/27/2025 12:36 PM CDT Primary hypertension (CMS/HCC) DEXA BONE DENSITY Routine 09/18/2024 Unspecified menopausal and perimenopausal disorder from Last 3 Months or Most Recently Relevant to Health Maintenance Results * Tsh With Rflex To Free T4 (07/27/2025 12:36 PM CDT) TSH, Thyroid Stimulating Hormone (External) 1.940 0.450 - 4.500 uIU/mL [facility] 1 Blood Venous blood / Unknown 07/27/2025 12:36 PM CDT 07/26/2025 11:00 PM CDT Narrative [facility] 1 - 07/28/2025 8:12 AM CDT Performed at: [address] [place] [id number] Steel Box [employer]e Inserter: Anderson Dutton MD, Phone: [phone] us Laura Gasca MD LAB BLOOD ORDERABLES Final Resu lt [facility] 1 * CBC with Auto differential (07/27/2025 12:36 PM CDT) WBC, White Blood Cell Count (External) 6.8 3.4 - 10.8 x10E3/uL [facility] 1 RBC, Red Blood Cell Count (External) 4.18 3.77 - 5.28 x10E6/uL [facility] 1 Hemoglobin (External) 13.0 11.1 - 15.9 g/dL [facility] 1 Hematocrit (External) 39.9 34.0 - 46.6 % [facility] 1 MCV (External) 96 79 - 97 fL [facility] 1 MCH (External) 31.1 26.6 - 33.0 pg [facility] 1 MCHC (External) 32.6 31.5 - 35.7 g/dL [facility] 1 RDW (External) 13.6 11.7 - 15.4 % [facility] 1 Platelets (External) 247 150 - 450 x10E3/uL [facility] 1 Neutrophils, Relative (External) 60 Not Estab. % [facility] 1 Lymphocytes, Relative (External) 31 Not Estab. % [facility] 1 Monocytes, Relative (External) 6 Not Estab. % [facility] 1 Eosinophils, Relative (External) 2 Not Estab. % [facility] 1 Basophils, Relative (External) 1 Not Estab. % [facility] 1 Neutrophils, Absolute (External) 4.1 1.4 - 7.0 x10E3/uL [facility] 1 Lymphocytes, Absolute (External) 2.1 0.7 - 3.1 x10E3/uL [facility] 1 Monocytes, Absolute (External) 0.4 0.1 - 0.9 x10E3/uL [facility] 1 Eosinophils, Absolute (External) 0.1 0.0 - 0.4 x10E3/uL [facility] 1 Basophils, Absolute (External) 0.0 0.0 - 0.2 x10E3/uL [facility] 1 Immature Granulocytes, Relative (External) 0 Not Estab. % [facility] 1 Immature Granulocytes, Absolute (External) 0.0 0.0 - 0.1 x10E3/uL [facility] 1 Blood Venous blood / Unknown 07/27/2025 12:36 PM CDT 07/26/2025 11:00 PM CDT Narrative [facility] 1 - 07/28/2025 8:12 AM CDT Performed at: [address] [id number] [employer] Inserter: Anderson Dutton MD, Phone: [phone] us Laura Gasca MD LAB BLOOD ORDERABLES Final Resu lt [facility] 1 * Lipid Panel (07/27/2025 12:36 PM CDT) Cholesterol (External) 154 100 - 199 mg/dL [facility] 1 Triglycerides (External) 111 0 - 149 mg/dL [facility] 1 HDL Cholesterol (External) 74 >39 mg/dL [facility] 1 VLDL, Cholesterol calculated (External) 20 5 - 40 mg/dL [facility] 1 LDL, Cholesterol calculated (External) 60 0 - 99 mg/dL [facility] 1 Blood Venous blood / Unknown 07/27/2025 12:36 PM CDT 07/26/2025 11:00 PM CDT Narrative [facility] 1 - 07/28/2025 8:12 AM CDT Performed at: 01 [address] [id number] [employer] Inserter: Anderson Dutton MD, Phone: [phone] us Laura Gasca MD LAB BLOOD ORDERABLES Final Resu lt [facility] 1 * (ABNORMAL) Comprehensive Metabolic Panel (07/27/2025 12:36 PM CDT) Glucose (External) 121(H) 70 - 99 mg/dL [facility] 1 Urea Nitrogen, Blood (External) 14 8 - 27 mg/dL [facility] 1 Creatinine (External) 0.75 0.57 - 1.00 mg/dL [facility] 1 [facility] eGFR (External) 81 >59 mL/min/1. 73 [facility] BUN / Creatinine Ratio (External) 19 12 - 28 [facility] 1 Sodium (External) 142 134 - 144 mmol/L [facility] 1 Potassium (External) 3.4(L) 3.5 - 5.2 mmol/L [facility] 1 Chloride (External) 100 96 - 106 mmol/L [facility] 1 Carbon Dioxide (External) 24 20 - 29 mmol/L [facility] 1 Calcium (External) 9.7 8.7 - 10.3 mg/dL [facility] 1 Protein, Total (External) 6.4 6.0 - 8.5 g/dL [facility] 1 Albumin (External) 4.3 3.8 - 4.8 g/dL [facility] 1 Globulin, Total (External) 2.1 1.5 - 4.5 g/dL [facility] 1 Bilirubin, Total (External) 0.7 0.0 - 1.2 mg/dL [facility] 1 ALP, Alkaline Phosphatase (External) 83 49 - 135 IU/L [facility] 1 AST, Aspartate Aminotransferase (External) 22 0 - 40 IU/L [facility] 1 ALT, Alanine Aminotransferase (External) 14 0 - 32 IU/L [facility] 1 Blood Venous blood / Unknown 07/27/2025 12:36 PM CDT 07/26/2025 11:00 PM CDT Narrative [facility] 1 - 07/28/2025 8:12 AM CDT Performed at: - [facility] [address] [id number] [employer] Inserter: Anderson Dutton MD, Phone: [phone] us Laura Gasca MD LAB BLOOD ORDERABLES Final Resu lt [facility] * DEXA bone density (09/18/2024) Anatomical Region Laterality Modality Wrist, Hip, L-spine Radiographic Imaging 09/18/2024 Impressions 09/18/2024 PATIENT'S T-SCORE: -2.2 1. LOW BONE DENSITY 2. FRAX fracture risk is not elevated. us Laura Gasca MD IMG DX PROCEDURES Final Result from Last 3 Months or Most Recently Relevant to Health Maintenance Insurance [facility] Care Teams Hvac Commercial Salesperson Relationship Specialty [place] [address] [place], [place] [phone] PCP - General Family Medicine 08/19/25
--- OUTSIDE RECORDS SUMMARY | 2025-10-23 09:56 | XMS_ITS | CCD ---
Author Name Interface, [id number] lity Address [address] [place] [address] [facility] Address [place] [address] Allergies and Adverse Reactions Medication/Group Name Reaction Severity Date No known allergies Reason for Visit Functional Status Date Name/Question Score/Answer 10/06/2009 Karnofsky performance status 100 Medications Date Name Route Dose Frequency Instructions Start Date End Date Status Fill Status Indication 08/12 Zolpidem Oral Tablet PO 1.0 TABLE T(S) QHS PRN sleep 2014 active 08/12 Vitamin C-Vitamin E Oral PO 1.0 CAPSU LE(S) daily 2014 active 08/12 Calcium Acetate Oral PO 1.0 MG daily 2014 active 08/12 Miscellane ous Drug PO 1.0 CAPSU LE(S) daily 2014 active 08/12 Hydrochlor othiazide Oral PO 1.0 TABLE T(S) as directed 2014 active 08/12 Aspirin Oral PO 1.0 TABLE T(S) daily 2014 active 08/12 Miscellane ous Drug PO 1.0 TABLE T(S) daily 2014 active 08/12 Ergocalcif yara Oral PO 1.0 TABLE T(S) Q7D 2014 active Problems Diagnosis Status Date of Diagnosis Resolution Date Body mass index [BMI] 34.0-34.9, adult Inactive Primary malignant neoplasm o f female breast (disorder) Active 09/10/2002 Social History Date Name Value 08/12/2020 Sex Female
--- OUTSIDE RECORDS SUMMARY | 2025-10-23 09:58 | XMS_ITS | Patient Health Record ---
Author Organization [facility] Address [address] [facility] [address] [place], [place] [id number] Care Team Providers Care Code Official Name Role Phone NIESHA FUENTES Unavailable [phone] [facility], Doc Unavailable Unavailable Reason For Referral No Information Plan Of Treatment Pending Test Test Name Order Date Knee - ap/lateral/sunrise 11/06/2021 Insurance Providers Payer Name Payer Address Payer Phone Subscriber Number Group Number Insured Name Patient Relationship to Insured Coverage Start Date Coverage End Date [employer] MEDIC[employer] ADV PPO [address] [address] [place] [address] [id number] Fela Malik Self - patient is the insured
--- OUTSIDE RECORDS SUMMARY | 2025-10-23 09:58 | XMS_ITS | CCD ---
Author Name Interface, [id number] lity Address [address] [place] [address] [facility] Address [address] [address] Allergies and Adverse Reactions Medication/Group Name Reaction [...] 1.0 TABLE T(S) daily 2014 active 08/12 Hydrochlor othiazide Oral PO 1.0 TABLE T(S) as directed 2014 active 08/12 Aspirin Oral PO 1.0 TABLE T(S) daily 2014 active 08/12 Miscellane ous Drug PO 1.0 CAPSU LE(S) daily 2014 active 08/12 Ergocalcif yara Oral PO 1.0 TABLE T(S) Q7D 2014 active Problems Diagnosis Status Date of Diagnosis Resolution Date Body mass index [BMI] 34.0-34.9, adult Inactive Primary malignant neoplasm o f female breast (disorder) Active 09/10/2002 Social History Date Name Value 08/12/2020 Sex Female
--- OUTSIDE RECORDS SUMMARY | 2025-10-23 09:59 | XMS_ITS | CCD ---
Author Name Interface, [id number] lity Address [address] [place] [address] [facility] Address [address] [address] Allergies and Adverse Reactions Medication/Group Name Reaction [...]
--- NOTE | 2025-10-23 10:05 | ED_ITS ---
HPI - General Adult General Chief complaint: Upper Respiratory Infection Stated complaint: cough / congestion Time Seen by Provider: 10/23/25 10:05 Source: patient Mode of arrival: ambulatory Limitations: no limitations History of Present Illness HPI narrative: 80-year-old female patient presents to the [facility] with complaints of cold symptoms for the past 3 weeks. Patient states she has had cough, congestion and runny nose. Denies fevers body aches or chills. Denies chest pain or shortness of breath. Denies abdominal pain nausea vomiting or diarrhea. Patient states she has recently traveled up here from [place] and states that her symptoms got worse when she arrived up to the [place]. Patient states she has just been taking Tylenol and had 1 or 2 doses a Sudafed but denies taking any other over -the-counter medications since her symptoms started. Related Data Home Medications ?Medication ?Instructions ?Recorded ?Confirmed ?Last Taken ?Type hydrochlorothiazide 25 mg tablet 25 mg PO DAILY 02/18/25 Unknown History amlodipine 2.5 mg tablet mg 02/18/25 Unknown History mirtazapine 15 mg tablet mg 02/18/25 Unknown History rosuvastatin 10 mg tablet mg 02/18/25 Unknown History Allergies Allergy/AdvReac Type Severity Reaction Status Date / Time acetaminophen (From AdvReac Mild Itching Verified 10/23/25 10:16 Tylenol-Codeine #3) codeine (From AdvReac Mild Itching Verified 10/23/25 10:16 Tylenol-Codeine #3) Review of Systems Review of Systems: CONSTITUTIONAL: Denies fever, chills, or sweats. EYES: Denies visual changes, redness, or discharge. ENT: Denies rhinorrhea, congestion, sore throat, or otalgia. CARDIOVASCULAR: Denies chest pain, palpitations, or edema. RESPIRATORY: Denies cough or dyspnea. GASTROINTESTINAL: Denies abdominal pain, nausea, vomiting, or diarrhea. GENITOURINARY: Denies dysuria or hematuria. SKIN: Denies rash or itching. MUSCULOSKELETAL: Denies back pain, joint pain, or myalgia. NEUROLOGIC: Denies headache, numbness, or weakness. PSYCHIATRIC: Denies anxiety or depression. [facility] Past Medical History Medical History (Updated 10/23/25 @ 11:19 by Olivia Balderas APRN) Acute epiglottitis Hypertension Hypercholesteremia Surgical History Surgical History (Updated 10/23/25 @ 10:28 by Olivia Balderas APRN) H/O right mastectomy H/O: hysterectomy History of bilateral knee replacement History of tracheostomy Comments At the time of my signature I agree with nursing past medical history, surgical, social, and family history. There is no relevant family history pertinent to the presenting complaint. Exam Narrative: GENERAL: Well-appearing, well-nourished, and in no acute distress. HEAD: Normocephalic, atraumatic. EYES: PERRLA and EOMI. ENT: Nares with erythema edema noted bilaterally, no rhinorrhea or epistaxis. Mucous membranes moist. posterior pharynx with no erythema, tonsillar enlargement noted. There is little bit of postnasal drip noted. Bilateral TMs are clear no erythema foreign bodies the canal. NECK: Supple. No lymphadenopathy CHEST: Clear to auscultation. No respiratory distress. HEART: Regular rate and rhythm. No murmur heard. Normal peripheral pulses. ABDOMEN: Soft, nontender, nondistended, normal active bowel sounds. EXTREMITIES: Normal range of motion. No edema. SKIN: Warm, dry, no rash. NEURO: No focal deficits. Alert and oriented x3. Course Course Level of Care: Express Care Visit Reevaluation(s) Reevaluation #1: re-evaluated patient notified her that her x-ray is negative for any pneumonia. Her point of care testing for flu, COVID and strep were all negative today. Discussed with patient we will discharge her home with medication to help with cough including mild steroids, albuterol inhaler and Tessalon Perles. Discussed with patient she should increase her vitamin regimen increasing vitamin-C, zinc and vitamin-D to help boost her immune system. Discussed with patient if she starts having fevers or trouble breathing she needs either go the ER see her primary doctor. Patient verbalized understanding denies any other questions or concerns at this time. Date: 10/23/25 Time: 11:22 Vital Signs Vital signs: Vital Signs Temperature 36.2 C L 10/23/25 10:08 Pulse Rate 72 10/23/25 10:08 Respiratory Rate 18 10/23/25 10:08 Blood Pressure 138/71 10/23/25 10:08 Pulse Oximetry 99 10/23/25 10:08 Oxygen Delivery Room Air 10/23/25 10:08 Temperature 36.2 C L 10/23/25 10:08 Pulse Rate 72 10/23/25 10:08 Respiratory Rate 18 10/23/25 10:08 Blood Pressure 138/71 10/23/25 10:08 Pulse Oximetry 99 10/23/25 10:08 Oxygen Delivery Room Air 10/23/25 10:08 Vital signs reviewed. MDM MDM Narrative Medical decision making narrative: Plan of care for patient is to test today for flu, COVID and strep. We will also do a chest x-ray to rule out pneumonia since she has had a cough for 3 weeks now. I will reassess patient once this has resulted. Differential Diagnosis Differential Diagnosis: Differential diagnosis: Allergic rhinitis, chronic sinusitis, tonsillitis, acute sinusitis, infectious mononucleosis, seasonal influenza, pertussis, diphtheria, meningococcal disease, viral syndrome, viral bronchitis, RSV, COVID- 19 Lab Data Labs: Lab Results 10/23/25 Range/Units 10:26 POC Grp A Strep Screen Negative (Negative) Imaging Data Radiologist's impression: [place] [address] XRay Report Signed Patient: Fela Malik : 1945 MR#: [id number] Age: 80 Acct:[id number] Loc: [facility] ADM Date: 10/23/[address]: Ordering Physician: Olivia Balderas APRN Date of Service: 10/23/25 Procedure(s): XR chest 2V Accession Number(s): [id number] cc: PACKAGING MANAGER PHYSICIAN; Olivia Balderas VISITOR SERVICES SPECIALIST~ Examination: XR chest 2V Clinical History: cough x 3 weeks Comparison: None Technique: PA and Lateral Findings: Cardiomediastinal silhouette normal size and configuration. Lungs clear. No acute bony abnormality. Right axillary clips. IMPRESSION: 1. No acute cardiopulmonary findings. Reviewed, dictated and finalized at [facility]. 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 Recommend antihistamine such as Benadryl at night time and Claritin/Zyrtec/Gloria during the day Cough syrup may cause drowsiness; avoid driving or take it at night time. Use inhaler as needed for cough, wheezing, shortness of breath or chest tightness. Also, recommend symptomatic treatment includes: rest, fluids, and increase humidity of the air at home. Recommend Acetaminophen or nonsteroidal anti-inflammatory agents (NSAIDs) as directed in the bottle to reduce fever and/pain/headache. Avoid smoking/second-hand smoke. Limit visits to areas with large crowds. Please schedule a follow-up visit with your personal physician for further evaluation and treatment within 3-5days. Including recheck and discussion of your blood pressure. If your symptoms persist, change or worsen significantly before you can contact your personal physician then please, without delay, go to the emergency department for further evaluation. Patient Language: Mauritanian Prescriptions: New benzonatate 200 mg capsule 200 mg PO TID PRN (Reason: cough) 10 Days Qty: 30 0RF methylprednisolone 4 mg tablets,dose pack See Rx Instructions PO .COMPLEX Qty: 21 0RF Rx Instructions: for 6 days albuterol sulfate [Ventolin HFA] 90 mcg/actuation HFA aerosol inhaler 2 puff INHALATION .Q4 hours PRN (Reason: cough) Qty: 18 0RF No Action amlodipine 2.5 mg tablet mirtazapine 15 mg tablet rosuvastatin 10 mg tablet cephalexin 500 mg capsule 500 mg PO Q12H 7 Days Qty: 14 0RF hydrochlorothiazide 25 mg tablet 25 mg PO DAILY Follow-up/Referrals: PHYSICIAN,PACKAGING MANAGER [Primary Care Provider, Internal Medicine] Time of Disposition: 11:18
[2025-10-23 10:08] VITALS: BP 138/71; PULSE 72; RESP 18; TEMP 36.2; O2SAT 99
[2025-10-23 10:27] LABS: EDSTREPNEGPOS1 Negative (Negative)
[2025-10-23 10:59] LABS: EDCOVIDSCREEN Negative (Negative); EDINFLUASCREEN Negative (Negative); EDINFLUBSCREEN Negative (Negative)
== END 2025-10-23 11:45 | disposition home or self-care (01) ==
PROVIDERS: Emergency Provider Nurse Practitioner Family
DX: B34.9 Viral infection, unspecified (principal); R05.9 Cough, unspecified; Z20.822 Contact with and (suspected) exposure to COVID-19; I10 Essential (primary) hypertension; E78.00 Pure hypercholesterolemia, unspecified; Z96.653 Presence of artificial knee joint, bilateral; Z90.11 Acquired absence of right breast and nipple
CPT/HCPCS: 71046; 87081; 87426; 87804; 87880; 99213; G0463